=== PATIENT | female | born 1940 | race Caucasian/White ===

== ENCOUNTER → 2016-12-04 | Outpatient (CLI) | payer MEDICARE, OTHER | LOC: RAD 20:21 | PROVIDERS: ATTEND Internal Medicine | DX: C34.11 Malignant neoplasm of upper lobe, right bronchus or lung (principal) | CPT/HCPCS: 78815; A9552 ==

== ENCOUNTER 2016-12-08 08:55 | Day surgery (SDC) | payer MEDICARE, OTHER ==
[2016-12-08 09:32] LABS: HEMATOCRIT 38.6 % (36.0-47.0); HEMOGLOBIN 12.5 g/dL (12.0-15.5); HGB HCT DIFFERENCE -1.1; MEAN CORPUSCULAR HEMOGLOBIN 26.3 pg (27.0-33.4); MEAN CORPUSCULAR HGB CONC 32.3 g/dL (32.0-36.0); MEAN CORPUSCULAR VOLUME 82 fl (80-97); RED BLOOD COUNT 4.74 10^6/uL (3.72-5.28); RED CELL DISTRIBUTION WIDTH 14.7 % (11.5-14.0); WHITE BLOOD COUNT 10.8 10^3/uL (4.0-10.5)
[2016-12-08 09:52] LABS: BLOOD UREA NITROGEN 9 mg/dL (7-20); CREATININE RESULT 0.64 mg/dL (0.52-1.25)
[2016-12-08 09:54] LABS: PROTHROMBIN TIME 14.7 SEC (11.4-15.4)
[2016-12-08 09:55] LABS: PARTIAL THROMBOPLASTIN TIME 35.8 SEC (23.5-35.8)
[2016-12-08] MEDS ORDERED: MIDAZOLAM 2 MG/2 ML INJ ONE (11:30)
[2016-12-08] MEDS ORDERED: FENTANYL CITRATE INJ/PF 100 MCG/2 ML AMPUL ONE (11:31)
[2016-12-08 15:30] VITALS: BP 126/75
== END 2016-12-08 15:00 | disposition home or self-care (01) ==
LOC: RAD 08:55
PROVIDERS: ATTEND Internal Medicine
PROC: 0BBC3ZX Excision of Right Upper Lung Lobe, Percutaneous Approach, Diagnostic (ICD-10-PCS; principal; 2016-12-08)
DX: C34.11 Malignant neoplasm of upper lobe, right bronchus or lung (principal); Z79.01 Long term (current) use of anticoagulants
CPT/HCPCS: 36415; 84520; 82565; 85027; 85610; 85730; 88342 ×2; 88341 ×2; 88305 ×2; 88313 ×2; 71010; 77012; 32405; J2250; J3010

== ENCOUNTER → 2017-09-15 | Outpatient (CLI) | payer MEDICARE, OTHER ==
--- NOTE | 2017-09-15 13:49 | RADIOLOGY REPORT (SQ) ---
EXAM DESCRIPTION: NM WHOLE BODY BONE SCAN COMPLETED DATE/TIME: 09/15/2017 12:58 pm REASON FOR STUDY: C34.11 MALIGNANT NEOPLASM OF UPPER LOBE, RIGHT BRONCHUS OR LUNG C34.11 MALIGNANT NEOPLASM OF UPPER LOBE, RIGHT BRONCHUS OR L COMPARISON: PET-CT 12/04/2016 RADIONUCLIDE AND DOSE: 20 millicuries Tc99m HDP. The route of agent administration: Intravenous. ADDITIONAL DRUGS AND DOSES: None. TECHNIQUE: Routine delayed images at 3 hours post radionuclide injection acquired of the bony skelet on including anterior and posterior whole-body projections and additional focused images as needed. LIMITATIONS: None. FINDINGS: BONES: There are 2 focal areas of increased uptake in the region of the left sacroiliac rod int. Ill-defined areas of increased uptake at L4 and L5. KIDNEYS: Symmetric excretion without obstruction. OTHER: No other significant finding. IMPRESSION: The scan is concerning for metastatic disease in the region of the left sacroiliac joint . No abnormal activity was seen in this area at the time of the PET-CT. The ill-defined uptake the lower lumbar spine is nonspecific. COMMENT: Quality measure 147: Current bone scan is compared with any available plain radiographs, p rior bone scans, and CT/MRI. TECHNICAL DOCUMENTATION: JOB ID: [id number] [employer]- All Rights Reserved
== END ==
LOC: RAD 08:10
PROVIDERS: ATTEND Internal Medicine
DX: C34.11 Malignant neoplasm of upper lobe, right bronchus or lung (principal)
CPT/HCPCS: 78306; A9561; Q9969

== ENCOUNTER → 2017-11-01 | Outpatient (CLI) | payer MEDICARE, OTHER ==
--- NOTE | 2017-11-01 16:50 | RADIOLOGY REPORT (SQ) ---
EXAM DESCRIPTION: KNEE RIGHT 4 VIEWS COMPLETED DATE/TIME: 11/01/2017 4:08 pm REASON FOR STUDY: R KNEE PAIN COMPARISON: None. NUMBER OF VIEWS: Four views. TECHNIQUE: AP, lateral, and both oblique radiographic images acquired of the right knee. LIMITATIONS: None. FINDINGS: There is evidence of osteophytic change of the medial and lateral knee joints with narrowi ng of the lateral knee joint. Peaking of intercondylar eminence. Osteophytic change noted at the p atellofemoral joint. Articular calcification compatible with chondrocalcinosis. IMPRESSION: DEGENERATIVE ARTHRITIS OF THE RIGHT KNEE. CHONDROCALCINOSIS. TECHNICAL DOCUMENTATION: JOB ID: [id number] SC-69 2010 [employer]- All Rights Reserved
--- NOTE | 2017-11-01 17:03 | RADIOLOGY REPORT (SQ) ---
EXAM DESCRIPTION: HIP RIGHT AP/LATERAL COMPLETED DATE/TIME: 11/01/2017 4:08 pm REASON FOR STUDY: R HIP PAIN COMPARISON: None. NUMBER OF VIEWS: Two views. TECHNIQUE: AP pelvis and additional frog-leg view of the right hip. LIMITATIONS: None. FINDINGS: Lumbar spondylosis with scoliosis convex left. Multilevel lumbar degenerative disc diseas e. 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 There is disruption of the media l wall of the right acetabulum noted. Acute fracture cannot be excluded. Follow-up with CT could be obtained if clinically indicated. Degenerative sclerosis along the left SI joint with osteoblastic metastasis not excluded in this region. Vascular calcification of the abdominal aorta. IMPRESSION: Evidence of acetabular protrusio the right hip. Fracture the medial wall right acetabul um not excluded. Degenerative change versus osteoblastic changes at the left SI joint. Lumbar spond ylosis with scoliosis convex left. TECHNICAL DOCUMENTATION: JOB ID: [id number] SC-69 2010 [employer]- All Rights Reserved
== END ==
LOC: RAD 15:14
PROVIDERS: ATTEND Radiology Radiation Oncology
DX: C34.11 Malignant neoplasm of upper lobe, right bronchus or lung (principal); C77.1 Secondary and unspecified malignant neoplasm of intrathoracic lymph nodes; C79.51 Secondary malignant neoplasm of bone

== ENCOUNTER → 2017-11-03 | Outpatient (CLI) | payer MEDICARE, OTHER ==
--- NOTE | 2017-11-03 10:21 | RADIOLOGY REPORT (SQ) ---
EXAM DESCRIPTION: CT RT LOWER EXTREMITY WITHOUT COMPLETED DATE/TIME: 11/03/2017 8:47 am REASON FOR STUDY: R HIP PAIN C79.51 SECONDARY MALIGNANT NEOPLASM OF BONE COMPARISON: None. TECHNIQUE: Axial imaging performed through the right hip with reformatted coronal and sagittal imagi ng windowed for bone and soft tissues. Images saved to PACS. 3D IMAGING: Were 3D images as MIP, SSD, or volume rendering performed at the work station? Yes. All CT scanners at this facility use dose modulation, iterative reconstruction, and/or weight based d osing when appropriate to reduce radiation dose to as low as reasonably achievable (ALARA). [facility]: Dose Right [facility]: CareDose [facility]: Dose Right [facility]: Teradose 4D [facility]: [employer] LIMITATIONS: None. RADIATION DOSE: CT Rad equipment meets quality standard of care and radiation dose reduction techniq ues were employed. CTDIvol: 8.2 mGy. DLP: 282 mGy-cm. mGy. FINDINGS: There is a pathologic fracture through the anterior and posterior columns of the acetabulu m associated with a lytic lesion in the acetabulum. Abnormal soft tissue surrounds the acetabulum an d lateral margin of the inferior ilium. The femoral head is intact. IMPRESSION: Pathologic fracture of the acetabulum. TECHNICAL DOCUMENTATION: JOB ID: [id number] Quality ID # 436: Final reports with documentation of one or more dose reduction techniques (e.g., Au tomated exposure control, adjustment of the mA and/or kV according to patient size, use of iterative reconstruction technique) 2010 [employer]- All Rights Reserved
[2017-11-03 13:39] LABS: ABSOLUTE BASOPHILS # (AUTO) 0.1 10^3/uL (0.0-0.2); ABSOLUTE EOSINOPHILS # (AUTO) 0.1 10^3/uL (0.0-0.6); ABSOLUTE LYMPHOCYTES (AUTO) 1.9 10^3/uL (0.5-4.7); ABSOLUTE MONOCYTES (AUTO) 1.5 10^3/uL (0.1-1.4); ABSOLUTE NEUT (AUTO) 6.6 10^3/uL (1.7-8.2); BASOPHILS % (AUTO) 0.9 % (0-2); EOSINOPHILS % (AUTO) 1.3 % (0-6); HEMATOCRIT 36.8 % (36.0-47.0); HEMOGLOBIN 11.9 g/dL (12.0-15.5); MEAN CORPUSCULAR HEMOGLOBIN 26.9 pg (27.0-33.4); MEAN CORPUSCULAR HGB CONC 32.3 g/dL (32.0-36.0); MEAN CORPUSCULAR VOLUME 83 fl (80-97); MONOCYTES % (AUTO) 14.2 % (3-13); PLATELET COUNT 489 10^3/uL (150-450); RED BLOOD COUNT 4.42 10^6/uL (3.72-5.28); SEGMENTED NEUTROPHILS % (AUTO) 64.6 % (42-78); TOTAL CELLS COUNTED % (AUTO) 100 %; WHITE BLOOD COUNT 10.2 10^3/uL (4.0-10.5)
== END ==
LOC: RAD 08:25
PROVIDERS: ATTEND Radiology Radiation Oncology
DX: C79.51 Secondary malignant neoplasm of bone (principal); M84.550A Pathological fracture in neoplastic disease, pelvis, initial encounter for fracture; M25.551 Pain in right hip; C34.11 Malignant neoplasm of upper lobe, right bronchus or lung; C77.1 Secondary and unspecified malignant neoplasm of intrathoracic lymph nodes
CPT/HCPCS: 36415; 85025

== ENCOUNTER 2017-12-01 17:28 | Inpatient (IN) | payer MEDICARE, OTHER ==
--- NOTE | 2017-12-01 18:22 | RADIOLOGY REPORT (SQ) ---
EXAM DESCRIPTION: HIP RIGHT AP/LATERAL COMPLETED DATE/TIME: 12/01/2017 6:12 pm REASON FOR STUDY: possible dislocation COMPARISON: Right hip films 09/11/2018 PET-CT 12/04/2016 NUMBER OF VIEWS: Two views. TECHNIQUE: AP pelvis and additional frog-leg view of the right hip. LIMITATIONS: None. FINDINGS: Bones are osteoporotic. There is a fracture through the medial wall of the right acetabulum with protrusio of the femoral hea d into the pelvis. This has progressed since 11/01/2017. Right femoral head and neck are intact. Remainder of the bony pelvis and left proximal femur are unremarkable. Degenerative disc changes lower lumbar spine IMPRESSION: Medial wall right acetabular fracture with protrusion of the femoral head into the bony pelvis TECHNICAL DOCUMENTATION: JOB ID: [id number] [employer]- All Rights Reserved Reading location - IP/workstation name: [email or web address]
[2017-12-01] MEDS ORDERED: NORMAL SALINE 1000 ML 1,000 ML IV ONE (18:28)
[2017-12-01] MEDS ORDERED: ONDANSETRON HCL INJ/PF 4 MG/2 ML SDV IV ONE ×2 (18:28→19:17)
[2017-12-01] MEDS ORDERED: HYDROMORPHONE HCL INJ/PF 2 MG/ML AMPULE IV ONE (18:28)
[2017-12-01 18:50] LABS: ABSOLUTE BASOPHILS # (AUTO) 0.1 10^3/uL (0.0-0.2); ABSOLUTE EOSINOPHILS # (AUTO) 0.3 10^3/uL (0.0-0.6); ABSOLUTE LYMPHOCYTES (AUTO) 1.5 10^3/uL (0.5-4.7); ABSOLUTE MONOCYTES (AUTO) 0.8 10^3/uL (0.1-1.4); ABSOLUTE NEUT (AUTO) 9.8 10^3/uL (1.7-8.2); BASOPHILS % (AUTO) 0.8 % (0-2); HEMATOCRIT 38.4 % (36.0-47.0); HEMOGLOBIN 12.3 g/dL (12.0-15.5); INTERNATIONAL RATION (INR) 1.13; MEAN CORPUSCULAR HEMOGLOBIN 26.1 pg (27.0-33.4); MEAN CORPUSCULAR VOLUME 82 fl (80-97); MONOCYTES % (AUTO) 6.4 % (3-13); PLATELET COUNT 387 10^3/uL (150-450); PROTHROMBIN TIME 15.3 SEC (11.4-15.4); RED CELL DISTRIBUTION WIDTH 19.3 % (11.5-14.0); SEGMENTED NEUTROPHILS % (AUTO) 78.8 % (42-78); TOTAL CELLS COUNTED % (AUTO) 100 %; WHITE BLOOD COUNT 12.5 10^3/uL (4.0-10.5)
[2017-12-01 18:51] LABS: PARTIAL THROMBOPLASTIN TIME 43.4 SEC (23.5-35.8)
[2017-12-01 18:59] LABS: BLOOD UREA NITROGEN 14 mg/dL (7-20); CALCIUM 7.3 mg/dL (8.4-10.2); CARBON DIOXIDE 30 mmol/L (22-30); CHLORIDE 93 mmol/L (98-107); GLUCOSE 111 mg/dL (75-110); POTASSIUM 4.1 mmol/L (3.6-5.0); SODIUM 125.8 mmol/L (137-145)
[2017-12-01 19:14] LABS: ANION GAP 3 (5-19)
[2017-12-01 19:29] LABS: AMORPHOUS SEDIMENT,URINE TRACE /HPF; APPEARANCE,URINE CLOUDY; BILIRUBIN,URINE NEGATIVE (NEGATIVE); COLOR,URINE YELLOW; GLUCOSE, URINE NEGATIVE (NEGATIVE); KETONES,URINE NEGATIVE (NEGATIVE); LEUKOCYTE ESTERASE,URINE LARGE (NEGATIVE); NITRITE,URINE POSITIVE (NEGATIVE); PROTEIN,URINE NEGATIVE (NEGATIVE); URINE SPECIFIC GRAVITY 1.006
[2017-12-01] MEDS: HYDROMORPHONE HCL INJ/PF 2 MG/ML AMPULE IV PRN ×2 (19:37→21:26)
[2017-12-01] MEDS ORDERED: CEFTRIAXONE INJ 1000 MG VIAL IV ONE (20:41)
--- NOTE | 2017-12-01 20:45 | RADIOLOGY REPORT (SQ) ---
EXAM DESCRIPTION: CT HEAD WITHOUT COMPLETED DATE/TIME: 12/01/2017 8:33 pm REASON FOR STUDY: hx of lung ca eval progression of mets new hip fx COMPARISON: None. TECHNIQUE: Axial images acquired through the brain without intravenous contrast. Images reviewed wi th bone, brain and subdural windows. Images stored on PACS. All CT scanners at this facility use dose modulation, iterative reconstruction, and/or weight based d osing when appropriate to reduce radiation dose to as low as reasonably achievable (ALARA). [facility]: Dose Right [facility]: CareDose [facility]: Dose Right [facility]: Teradose 4D [facility]: [employer] RADIATION DOSE: CT Rad equipment meets quality standard of care and radiation dose reduction techniq ues were employed. CTDIvol: 64.6 mGy. DLP: 1034 mGy-cm. mGy. LIMITATIONS: None. FINDINGS: VENTRICLES: Prominent. CEREBRUM: No masses. No hemorrhage. No midline shift. Areas of low density in the white matter mos t likely due to chronic micro-vascular ischemic change. No evidence for acute infarction. CEREBELLUM: No masses. No hemorrhage. No alteration of density. No evidence for acute infarction. EXTRAAXIAL SPACES: Mild age-related involutional change. No fluid collections. No masses. ORBITS AND GLOBE: No intra- or extraconal masses. Normal contour of globe without masses. CALVARIUM: No fracture. PARANASAL SINUSES: Left greater than right maxillary sinus disease. SOFT TISSUES: No mass or hematoma. OTHER: No other significant finding. IMPRESSION: MILD CHRONIC CHANGES OF ATROPHY AND MICROVASCULAR ISCHEMIA. PARANASAL SINUS DISEASE. N O ACUTE INTRACRANIAL PROCESS. EVIDENCE OF ACUTE STROKE: NO. TECHNICAL DOCUMENTATION: JOB ID: [id number] Quality ID # 436: Final reports with documentation of one or more dose reduction techniques (e.g., Au tomated exposure control, adjustment of the mA and/or kV according to patient size, use of iterative reconstruction technique) 2010 [employer]- All Rights Reserved Reading location - IP/workstation name: [email or web address]
--- NOTE | 2017-12-01 20:56 | RADIOLOGY REPORT (SQ) ---
EXAM DESCRIPTION: CT CHEST WITH COMPLETED DATE/TIME: 12/01/2017 8:36 pm REASON FOR STUDY: hx of lung ca eval progression of mets new hip fx COMPARISON: PET-CT FROM 10/05/2017 TECHNIQUE: CT scan of the chest performed using helical scanning technique with dynamic intravenous contrast injection. Images reviewed with lung, soft tissue and bone windows. Reconstructed coronal and sagittal MPR images reviewed. All images stored on PACS. All CT scanners at this facility use dose modulation, iterative reconstruction, and/or weight based d osing when appropriate to reduce radiation dose to as low as reasonably achievable (ALARA). [facility]: Dose Right [facility]: CareDose [facility]: Dose Right [facility]: Teradose 4D [facility]: [employer] CONTRAST TYPE AND DOSE: contrast/concentration: Isovue 370.00 mg/ml; Total Contrast Delivered: 65.0 ml; Total Saline Delivered: 65.1 ml RENAL FUNCTION: GFR > 60. RADIATION DOSE: CT Rad equipment meets quality standard of care and radiation dose reduction techniq ues were employed. CTDIvol: 7.1 - 8.7 mGy. DLP: 946 mGy-cm. . LIMITATIONS: None. FINDINGS: LUNGS AND PLEURA: There has been near complete resolution of previously identified right s uprahilar and right upper lobe masses with some residual sub solid opacity in the right upper lobe se tarun 4, image 21 measuring 16 mm compatible with response to therapy. There has however been interva l development of numerous new and enlarging pulmonary nodules bilaterally compatible with progression of metastatic disease. The largest nodule is located within the superior segment of the right lower lobe measuring 3.9 cm where it previously measured 1.2 cm. New bilateral lower lobe airspace diseas e. HILAR AND MEDIASTINAL STRUCTURES: Some interval improvement of mediastinal and hilar lymphadenopathy compatible with response to therapy HEART AND VASCULAR STRUCTURES: No aneurysm or dissection. No central pulmonary emboli. No pericardi al effusion. HARDWARE: None in the chest. UPPER ABDOMEN: See separate report of the CT of the abdomen. THYROID AND OTHER SOFT TISSUES: Stable adenopathy. No new mass. BONES: Degenerative change without fracture or suspicious osseous lesion. OTHER: No other significant finding. IMPRESSION: ALTHOUGH THERE HAS BEEN INTERVAL IMPROVEMENT OF MEDIASTINAL AND HILAR LYMPHADENOPATHY WELL DOMINANT MASS RIGHT SUPRAHILAR LUNG AND RIGHT UPPER LOBE THERE HAS BEEN INTERVAL DEVELOPMENT OF NEW WILL ENLARGING PULMONARY NODULES/MASSES COMPATIBLE WITH OVERALL PROGRESSION OF METASTATIC PAULINA G CANCER. NEW BILATERAL LOWER LOBE AIRSPACE DISEASE SUSPICIOUS FOR PNEUMONIA. CORRELATE WITH FEVER/ELEVATED WH ITE BLOOD CELL COUNT. TECHNICAL DOCUMENTATION: JOB ID: [id number] Quality ID # 436: Final reports with documentation of one or more dose reduction techniques (e.g., Au tomated exposure control, adjustment of the mA and/or kV according to patient size, use of iterative reconstruction technique) 2010 [employer]- All Rights Reserved Reading location - IP/workstation name: [email or web address]
--- NOTE | 2017-12-01 21:02 | RADIOLOGY REPORT (SQ) ---
EXAM DESCRIPTION: CT ABD/PELVIS WITH IV ONLY COMPLETED DATE/TIME: 12/01/2017 8:36 pm REASON FOR STUDY: hx of lung ca eval progression of mets new hip fx COMPARISON: PET CT FROM 12/04/[address] FROM 11/03/2017. TECHNIQUE: CT scan of the abdomen and pelvis performed using helical scanning technique with dynamic intravenous contrast injection. No oral contrast. Images reviewed with lung, soft tissue, and bone windows. Reconstructed coronal and sagittal MPR images reviewed. Delayed images for evaluation of the urinary system also acquired. All images stored on PACS. All CT scanners at this facility use dose modulation, iterative reconstruction, and/or weight based d osing when appropriate to reduce radiation dose to as low as reasonably achievable (ALARA). [facility]: Dose Right [facility]: CareDose [facility]: Dose Right [facility]: Teradose 4D [facility]: [employer] CONTRAST TYPE AND DOSE: 65 ML Isovue 370- low osmolar. RENAL FUNCTION: GFR > 60. RADIATION DOSE: . LIMITATIONS: None. FINDINGS: LOWER CHEST: See separate report of the CT of the chest. LIVER: Diffuse hepatic steatosis which limits sensitivity of evaluation for metastatic disease. No d efinite mass. Stable pneumobilia status post cholecystectomy. SPLEEN: Normal size. No focal lesions. PANCREAS: No masses. No significant calcifications. No adjacent inflammation or peripancreatic fluid collections. Pancreatic duct not dilated. GALLBLADDER: Surgically absent. ADRENAL GLANDS: No significant masses or asymmetry. RIGHT KIDNEY AND URETER: No solid masses. No significant calcifications. No hydronephrosis or hyd roureter. LEFT KIDNEY AND URETER: No solid masses. No significant calcifications. No hydronephrosis or hydr oureter. AORTA AND VESSELS: Atherosclerotic calcifications. No aneurysm. No dissection. Renal arteries, SMA, celiac without stenosis. RETROPERITONEUM: No retroperitoneal adenopathy, hemorrhage or masses. BOWEL AND PERITONEAL CAVITY: No masses or inflammatory changes. No free fluid or peritoneal masses. APPENDIX: Normal. PELVIS: No mass. No free fluid. Bladder decompressed with Hernandez catheter. ABDOMINAL WALL: No masses. No significant hernias. BONES: Again seen is a severely comminuted pathologic fracture involving the right acetabulum with me dial displacement of the femoral head. Additional lytic lesion identified within the left iliac bone not included in field of view prior study measuring approximately 3.9 x 2.3 x 2.9 cm OTHER: No other significant finding. IMPRESSION: RELATIVELY STABLE APPEARANCE OF PATHOLOGIC FRACTURE RIGHT ACETABULUM WHEN COMPARED TO OH IOR CT PERFORMED ON 11/03/2017. ADDITIONAL LYTIC LESION WITHIN THE LEFT ILIAC BONE COMPATIBLE WITH 2ND SITE OF OSSEOUS METASTATIC DIS EASE. REMAINING FINDINGS ARE STABLE COMPARED TO PRIOR PET-CT PERFORMED ON 12/04/2016. TECHNICAL DOCUMENTATION: JOB ID: [id number] Quality ID # 436: Final reports with documentation of one or more dose reduction techniques (e.g., Au tomated exposure control, adjustment of the mA and/or kV according to patient size, use of iterative reconstruction technique) 2010 [employer]- All Rights Reserved Reading location - IP/workstation name: [email or web address]
--- NOTE | 2017-12-01 21:55 | ER Document Report ---
ED General - General Chief Complaint: Hip Pain Stated Complaint: RIGHT HIP PAIN Time Seen by Provider: 12/01/17 18:18 TRAVEL OUTSIDE OF THE [place] IN LAST 30 DAYS: No - HPI Patient complains to provider of: Right hip pain Notes: Patient coming in for evaluation of right hip pain. According to family members patient amatory approximately 2 weeks ago currently is being treated for metastatic lung cancer with metastases to the sacral region. Patient recently underwent chemotherapy and radiation. Upon my evaluation patient moaning in pain holding her right hip. Denies any falls denies any trauma. Denies any other symptoms fever chills nausea vomiting. - Related Data Allergies/Adverse Reactions: No Known Allergies Allergy (Verified 01/29/13 12:55) Past Medical History - Social History Smoking Status: Unknown if Ever Smoked Family History: Reviewed & Not Pertinent Patient has suicidal ideation: No Patient has homicidal ideation: No - Past Medical History Cardiac Medical History: Denies: Hx Coronary Artery Disease, Hx Heart Attack, Hx Hypertension Pulmonary Medical History: Reports: Hx Bronchitis, Hx COPD - COPD Denies: Hx Asthma, Hx Pneumonia Neurological Medical History: Denies: Hx Cerebrovascular Accident, Hx Seizures Renal/ Medical History: Denies: Hx Peritoneal Dialysis GI Medical History: Denies: Hx Hepatitis, Hx Hiatal Hernia, Hx Ulcer Musculoskeltal Medical History: Reports Hx Arthritis - Hands and Knees Infectious Medical History: Denies: Hx Hepatitis Past Surgical History: Denies: Hx Mastectomy, Hx Open Heart Surgery, Hx Pacemaker - Immunizations Hx Diphtheria, Pertussis, Tetanus Vaccination: No Review of Systems - Review of Systems Constitutional: No symptoms reported EENT: No symptoms reported Cardiovascular: No symptoms reported Respiratory: No symptoms reported Gastrointestinal: No symptoms reported Genitourinary: No symptoms reported Female Genitourinary: No symptoms reported Musculoskeletal: Other - Right hip pain Skin: No symptoms reported Hematologic/Lymphatic: No symptoms reported Neurological/Psychological: No symptoms reported Physical Exam - Vital signs Vitals: Resp Pulse Ox 13 95 12/01/17 17:40 12/01/17 17:40 Interpretation: Normal - General General appearance: Alert, Other - Chronically ill - HEENT Head: Normocephalic, Atraumatic Eyes: Normal Pupils: PERRL - Respiratory Respiratory status: No respiratory distress Chest status: Nontender Breath sounds: Normal Chest palpation: Normal - Cardiovascular Rhythm: Regular Heart sounds: Normal auscultation Murmur: No - Abdominal Inspection: Normal Distension: No distension Bowel sounds: Normal Tenderness: Nontender Organomegaly: No organomegaly - Back Back: Normal, Nontender - Extremities General upper extremity: Normal inspection, Nontender, Normal color, Normal ROM , Normal temperature General lower extremity: Normal inspection, Nontender, Edema - 2+ bilaterally, Other - Patient with shortening and pain of the right lower extremity. No: Normal temperature - Neurological Neuro grossly intact: Yes Cognition: Normal Orientation: AAOx4 [place] Coma Scale Eye Opening: Spontaneous [place] Coma Scale Verbal: Oriented [place] Coma Scale Motor: Obeys Commands [place] Coma Scale Total: 15 Speech: Normal Motor strength normal: LUE, RUE, LLE, RLE Sensory: Normal - Psychological Associated symptoms: Normal affect, Normal mood - Skin Skin Temperature: Warm Skin Moisture: Dry Skin Color: Hyperpigmentation Course - Re-evaluation Re-evalutation: 12/02/17 00:18 Patient has a acetabular fracture. Did discuss with orthopedics on-call recommended transfer to tertiary care center for surgery. They contact the oncology astronautical engineer and was later contacted by the patient's personal oncologist Jason. Recommend CAT scans of the head chest and pelvis to evaluate patient's status recommended that the patient had improvement of cancer lesions and the family and patient want surgery that at that time will be more feasible however patient's cancer is progressing then hospice and pain management would be more in line with taking care of the patient. Unfortunately the patient's CAT scan did show multiple new lesions that are all worsening of the patient's cancer. Did speak to the patient into the family members patient does not want surgery at this time. Patient agrees with comfort measures and pain control. I did discuss DNR status with the patient and agrees at this time. Patient was admitted to the hospital service - Vital Signs Vital signs: Temp Pulse Resp BP Pulse Ox 15 94/50 L 93 12/02/17 00:01 12/02/17 00:00 12/02/17 00:01 - Laboratory Result Diagrams: 12/01/17 17:00 12/01/17 17:00 Laboratory results interpreted by me: 12/01/17 12/01/17 12/01/17 17:00 17:00 17:00 WBC 12.5 H MCH 26.1 L RDW 19.3 H Seg Neutrophils % 78.8 H Lymphocytes % 12.0 L Absolute Neutrophils 9.8 H APTT 43.4 H Sodium 125.8 L Chloride 93 L Anion Gap 3 L Glucose 111 H Calcium 7.3 L Urine Nitrite Urine Urobilinogen Ur Leukocyte Esterase 12/01/17 19:10 WBC MCH RDW Seg Neutrophils % Lymphocytes % Absolute Neutrophils APTT Sodium Chloride Anion Gap Glucose Calcium Urine Nitrite POSITIVE H Urine Urobilinogen 2.0 H Ur Leukocyte Esterase LARGE H Discharge - Discharge Clinical Impression: Lung cancer with metastatic disease, Uncontrolled pain Right acetabular fracture Qualifiers: Encounter type: initial encounter Sublocation of acetabulum: medial wall Fracture type: closed Fracture alignment: displaced Qualified Code(s): S32.471A - Displaced fracture of medial wall of right acetabulum, initial encounter for closed fracture Condition: Good Disposition: ADMITTED INPATIENT Admitting Provider: Armando Terry Unit Admitted: Medical Floor
[2017-12-01] MEDS ORDERED: KETOROLAC TROMETHAMINE INJ/PF 30 MG/1 ML SDV IV ONE (21:57)
[2017-12-01] MEDS ORDERED: ALBUTEROL SULFATE 0.083% NEB 2.5 MG/3 ML AMPUL NEB PRN (22:07)
[2017-12-01] MEDS ORDERED: PROMETHAZINE HCL INJ 25 MG/1 ML VIAL IV PRN (22:07)
[2017-12-01] MEDS ORDERED: ACETAMINOPHEN 325 MG TABLET PO PRN (22:07)
[2017-12-01] MEDS ORDERED: ONDANSETRON HCL INJ/PF 4 MG/2 ML SDV IV PRN (22:07)
[2017-12-01] MEDS ORDERED: HYDROMORPHONE HCL INJ/PF 2 MG/ML AMPULE IV PRN (22:12)
[2017-12-02] MEDS: OXYCODONE-ACETAMINOPHEN 5-325 MG TABLET PO PRN ×4 (00:21→22:22)
--- NOTE | 2017-12-02 02:43 | PDOC H&P ---
History of Present Illness Admission Date/PCP: RADHA GOODE Patient complains of: Right hip pain and increased bilateral leg swelling and rash for about a week per daughter. History of Present Illness: ANUP OLIVEROS is a 77 year old cachectic female with history of lung cancer with metastasis was admitted with above-mentioned complaints. Unable to get an accurate history from the patient herself so most of the history was obtained from her daughter at bedside. According to her daughter, the patient started having increased bilateral leg swelling and rash for about a week. She was also complaining of right hip pain. She used to be able to ambulate with assistance but lately she has been bedbound because of pain. There was no report of any fever or chills but she had a dry cough for the last 2 weeks. There was also no report of any chest pain, shortness of breath or abdominal pain but she has been having diarrhea with liquid nonbloody stool. There was no report of any urinary symptoms. Her appetite has been adequate. In the ED, the patient was hemodynamically stable. Her WBC was 12.5 and her hemoglobin was 12.3. Her urinalysis was positive. Her right hip showed a medial wall right acetabular fracture. She received 1 g of Rocephin 1, 1 mg Dilaudid 1, 50 mg Toradol 1 with some improvement in her symptoms. Past Medical History Medical History: Other - And as per previous records. Cardiac Medical History: Denies: Coronary Artery Disease, Myocardial Infarction, Hypertension Pulmonary Medical History: Reports: Bronchitis, Chronic Obstructive Pulmonary Disease (COPD) - COPD Denies: Asthma, Pneumonia Neurological Medical History: Denies: Seizures Malignancy Medical History: Reports: Lung Cancer - with mets., Other - bladder cancer GI Medical History: Denies: Hepatitis, Hiatal Hernia Musculoskeltal Medical History: Reports: Arthritis - Hands and Knees Hematology: Denies: Anemia, Sickle Cell Disease Past Surgical History Past Surgical History: Reports: Other - bladder cancer, post sling placed per daughter. Social History Smoking Status: Unknown if Ever Smoked Cigarettes Packs Per Day: 0 - Used to smoke less than a pack a day for many years. She quit a year ago. Frequency of Alcohol Use: None - Advance Directive Resuscitation Status: Do Not Intubate Family History Parental Family History Reviewed: Yes - Mother: Heart disease and diabetes, diet brother: Diabetes. Children Family History Reviewed: No Sibling(s) Family History Reviewed.: Yes Medication/Allergy Home Medications: Bupropion HCl [Wellbutrin Xl 150 mg 24hr Tablet] 150 mg PO 01/29/13 Cholecalciferol (Vitamin D3) [Vitamin D3 5000 unit Capsule] 5,000 unit PO Simvastatin [Zocor 20 mg Tablet] 20 mg PO QHS 01/29/13 Albuterol Sulfate [Proair HFA] 1 - 2 puff IH Q4 PRN 12/08/16 Umeclidinium Brm/Vilanterol Tr [Anoro Ellipta 62.5-25 Mcg INH] DAILY 12/08/16 Allergies/Adverse Reactions: No Known Allergies Allergy (Verified 01/29/13 12:55) Review of Systems ROS unobtainable: Other - Pertinent positives and negatives as per HPI. Physical Exam Vital Signs: Temp Pulse Resp BP Pulse Ox 12 116/68 94 12/01/17 20:01 12/01/17 20:00 12/01/17 20:01 General appearance: PRESENT: no acute distress, other - cachectic Head exam: PRESENT: atraumatic Eye exam: PRESENT: conjunctiva pink, PERRLA. ABSENT: scleral icterus Mouth exam: PRESENT: moist, tongue midline Neck exam: PRESENT: full ROM Respiratory exam: PRESENT: clear to auscultation mehdi. ABSENT: rales, rhonchi, wheezes Cardiovascular exam: PRESENT: RRR - S1 S2 normal. Pulses: PRESENT: +2 pedal pulses bilateral GI/Abdominal exam: PRESENT: normal bowel sounds, soft. ABSENT: distended, rebound, tenderness Rectal exam: PRESENT: deferred Extremities exam: PRESENT: pedal edema, other - Limited range of motion of right leg since acute fracture of the acetabulum. Neurological exam: PRESENT: alert, awake, oriented to person Skin exam: PRESENT: dry, intact, rash - On all extremities, mostly bilateral legs, warm. ABSENT: cyanosis Results Laboratory Results: 12/01/17 17:00 12/01/17 17:00 12/01/17 12/01/17 12/01/17 17: 17:00 19:10 WBC 12.5 H RBC 4.70 Hgb 12.3 Hct 38.4 MCV 82 MCH 26.1 L MCHC 32.0 RDW 19.3 H Plt Count 387 Seg Neutrophils % 78.8 H Lymphocytes % 12.0 L Monocytes % 6.4 Eosinophils % 2.0 Basophils % 0.8 Absolute Neutrophils 9.8 H Absolute Lymphocytes 1.5 Absolute Monocytes 0.8 Absolute Eosinophils 0.3 Absolute Basophils 0.1 Sodium 125.8 L Potassium 4.1 Chloride 93 L Carbon Dioxide 30 Anion Gap 3 L BUN 14 Creatinine 0.64 Est GFR ( Amer) > 60 Est GFR (Non-Af Amer) > 60 Glucose 111 H Calcium 7.3 L Urine Color YELLOW Urine Appearance CLOUDY Urine pH 6.0 Ur Specific Prosser 1.006 Urine Protein NEGATIVE Urine Glucose (UA) NEGATIVE Urine Ketones NEGATIVE Urine Blood NEGATIVE Urine Nitrite POSITIVE H Ur Leukocyte Esterase LARGE H Urine WBC (Auto) >182 Urine RBC (Auto) 3 Impressions: Hip/Pelvis X-Ray 12/01/17 17:53 IMPRESSION: Medial wall right acetabular fracture with protrusion of the femoral head into the bony pelvis Abdomen/Pelvis CT 12/01/17 19:16 IMPRESSION: RELATIVELY STABLE APPEARANCE OF PATHOLOGIC FRACTURE RIGHT ACETABULUM WHEN COMPARED TO PRIOR CT PERFORMED ON 11/03/2017. ADDITIONAL LYTIC LESION WITHIN THE LEFT ILIAC BONE COMPATIBLE WITH 2ND SITE OF OSSEOUS METASTATIC DISEASE. REMAINING FINDINGS ARE STABLE COMPARED TO PRIOR PET-CT PERFORMED ON 12/04/2016. Chest CT 12/01/17 19:16 IMPRESSION: ALTHOUGH THERE HAS BEEN INTERVAL IMPROVEMENT OF MEDIASTINAL AND HILAR LYMPHADENOPATHY WELL DOMINANT MASS RIGHT SUPRAHILAR LUNG AND RIGHT UPPER LOBE THERE HAS BEEN INTERVAL DEVELOPMENT OF NEW WILL ENLARGING PULMONARY NODULES/MASSES COMPATIBLE WITH OVERALL PROGRESSION OF METASTATIC LUNG CANCER. NEW BILATERAL LOWER LOBE AIRSPACE DISEASE SUSPICIOUS FOR PNEUMONIA. CORRELATE WITH FEVER/ELEVATED WHITE BLOOD CELL COUNT. Head CT 12/01/17 19:16 IMPRESSION: MILD CHRONIC CHANGES OF ATROPHY AND MICROVASCULAR ISCHEMIA. PARANASAL SINUS DISEASE. NO ACUTE INTRACRANIAL PROCESS. EVIDENCE OF ACUTE STROKE: NO. Assessment & Plan - Diagnosis (1) Right acetabular fracture Qualifiers: Encounter type: initial encounter Sublocation of acetabulum: medial wall Fracture type: closed Fracture alignment: displaced Qualified Code(s): S32.471A - Displaced fracture of medial wall of right acetabulum, initial encounter for closed fracture Is this a current diagnosis for this admission?: Yes Plan: pathological fracture unchanged from 11/03/2017. X-ray right hip and CT pelvis reviewed. The case was discussed by ED physician and orthopedics who reportedly recommended that transferring to a tertiary center. The case was also discussed with her oncologist (Dr. Gomez) who according to the ED physician recommended CAT scans of head, chest and abdomen/pelvis to assess the extent of her disease. Imaging studies unfortunately showed progression of her disease despite being on chemotherapy and radiation. So after further discussion with the patient and her daughter, the decision was made to treat her conservatively. Her daughter was asking me about possibly transferring her to hospice home. Palliative care may need to be consulted to facilitate transfer. (2) UTI (urinary tract infection) Is this a current diagnosis for this admission?: Yes Plan: We will continue Rocephin awaiting urine culture. Hernandez was placed in the ED to help with comfort. (3) Intractable pain Is this a current diagnosis for this admission?: Yes Plan: She is on 75 mcg fentanyl patch 1. Will increase to 100 mgg and give IV fentanyl as needed. Since the focus is on comfort, will not obtain any blood work. (4) Lung cancer metastatic to bone Is this a current diagnosis for this admission?: No Plan: The patient was diagnosed about a year ago no improvement after being treated with chemoradiation. Her last chemotherapy was on 11/22/2017 and her last radiation therapy was 2 weeks ago per her daughter. Further management per oncology consulted by the ED physician. - Time Time Spent: 50 to 70 Minutes Medications reviewed and adjusted accordingly: Yes - Inpatient Certification Based on my medical assessment, after consideration of the patient's comorbidities, presenting symptoms, or acuity I expect that the services needed warrant INPATIENT care.: Yes I certify that my determination is in accordance with my understanding of Medicare's requirements for reasonable and necessary INPATIENT services [42 CFR 412.3e].: Yes
[2017-12-02] MEDS ORDERED: FENTANYL 100 MCG/HR PATCH.TD72 TD ONE (03:00)
[2017-12-02] MEDS ORDERED: VANCOMYCIN HCL 0 MG in DEXTROSE 5%-WATER 250 ML IV NR (03:30)
[2017-12-02] MEDS ORDERED: PIPERACILLIN/TAZOBACTAM 3.375 GM VIAL IV PRN (03:41)
[2017-12-02] MEDS ORDERED: PIPERACILLIN SODIUM/TAZOBACTAM 3.375 GM in NORMAL SALINE 100 ML IV ONE (03:45)
[2017-12-02] MEDS ORDERED: VANCOMYCIN HCL INJ 1000 MG VIAL IV PRN (04:01)
[2017-12-02] MEDS ORDERED: PIPERACILLIN/TAZOBACTAM 3.375 GM VIAL IV ONE (04:25)
[2017-12-02] MEDS ORDERED: VANCOMYCIN HCL INJ 1000 MG VIAL ONE (04:25)
[2017-12-02] MEDS ORDERED: VANCOMYCIN HCL 1,000 MG in DEXTROSE 5%-WATER 250 ML IV ONE (05:00)
[2017-12-02] MEDS: HEPARIN SOD (PORCINE) 5,000 UNIT/ML 1 ML SYRINGE SUBCUT SCH ×3 (05:45→21:18)
[2017-12-02] MEDS: HYDROCORTISONE 0.5% CREAM 28.35 GM TP SCH ×2 (09:00→17:08)
[2017-12-02] MEDS: PIPERACILLIN SODIUM/TAZOBACTAM 3.375 GM in NORMAL SALINE 100 ML IV SCH ×3 (09:01→21:18)
--- NOTE | 2017-12-02 13:15 | PDOC CONSULTATION ---
Consultation Consult Date: 12/02/17 Consult reason:: Hematology/Oncology consultation was requested for patient with Lung cancer and new hip fracture. History of Present Illness Admission Date/PCP: 12/01/17 22:38 RADHA GOODE History of Present Illness: ANUP OLIVEROS is a 77 year old female who is followed by Dr. Butler for metastatic lung cancer. She has been undergoing active treatment for this. However, over the past week, she has bee unable to ambulate due to progressive hip pain. Outpatient plans had been to restage her with CT scans but she was unable to come for these appointments. According to her daughter, the patient started having increased bilateral leg swelling and rash for about a week. She was also complaining of right hip pain. She used to be able to ambulate with assistance but lately she has been bedbound because of pain. There was no report of any fever or chills but she had a dry cough for the last 2 weeks. There was also no report of any chest pain, shortness of breath or abdominal pain but she has been having diarrhea with liquid nonbloody stool. There was no report of any urinary symptoms. Her appetite has been adequate. In the ED, the patient was hemodynamically stable. Her WBC was 12.5 and her hemoglobin was 12.3. Her urinalysis was positive. Her right hip showed a medial wall right acetabular fracture. She received 1 g of Rocephin 1, 1 mg Dilaudid 1, 50 mg Toradol 1 with some improvement in her symptoms. Today, she is resting comfortably in bed and states that her pain is controlled. Her daughter, Arti is at bedside. Past Medical History Cardiac Medical History: Denies: Coronary Artery Disease, Myocardial Infarction, Hypertension Pulmonary Medical History: Reports: Bronchitis, Chronic Obstructive Pulmonary Disease (COPD) - COPD Denies: Asthma, Pneumonia Neurological Medical History: Denies: Seizures Malignancy Medical History: Reports: Lung Cancer - with mets., Other - bladder cancer GI Medical History: Denies: Hepatitis, Hiatal Hernia Musculoskeltal Medical History: Reports: Arthritis - Hands and Knees Psychiatric Medical History: Denies: Depression Hematology: Denies: Anemia, Sickle Cell Disease Past Surgical History Past Surgical History: Reports: Other - bladder cancer, post sling placed per daughter. Denies: Amputation, Mastectomy, Pacemaker Social History Information Source: Relative Lives with: Alone Smoking Status: Unknown if Ever Smoked Cigarettes Packs Per Day: 0 - Used to smoke less than a pack a day for many years. She quit a year ago. Last Time Smoked: quit in 2017 Frequency of Alcohol Use: None Hx Prescription Drug Abuse: No - Advance Directive Resuscitation Status: Do Not Intubate Family History Family History: Reviewed & Not Pertinent Parental Family History Reviewed: No Children Family History Reviewed: Yes Sibling(s) Family History Reviewed.: No Medication/Allergy Home Medications: Dronabinol [Marinol] 5 mg PO DAILY@08,12 12/02/17 Fentanyl [Duragesic 100 Mcg/Hr Transdermal Patch] 100 mcg TOP Q3D 12/02/17 Hydromorphone HCl [Dilaudid] 4 mg PO Q6HP PRN 12/02/17 Omeprazole 20 mg PO QHS 12/02/17 Ondansetron HCl [Zofran 8 mg Tablet] 8 mg PO Q8HP PRN 12/02/17 Potassium Chloride [Klor-Con M20] 20 meq PO DAILY 12/02/17 Prochlorperazine Maleate [Compazine 10 mg Tablet] 10 mg PO Q4HP PRN 12/02/17 Tiotropium [place] [Spiriva Handihaler 18 mcg/dose (30 Dose)] 1 cap IH DAILY Allergies/Adverse Reactions: No Known Allergies Allergy (Verified 01/29/13 12:55) Review of Systems ROS unobtainable: Due to mental status - patient very sleepy after pain medications. However daughter states no recent N/V/chest pain or dyspnea. Physical Exam Vital Signs: Temp Pulse Resp BP Pulse Ox 97.4 F 76 16 117/45 L 95 12/02/17 07:57 12/02/17 07:57 12/02/17 07:57 12/02/17 07:57 12/02/17 07:57 Intake & Output 12/01/17 12/02/17 12/03/17 06:59 06:59 06:59 Intake Total 277 Output Total 1300 Balance -1023 Weight 54.431 kg General appearance: PRESENT: no acute distress, thin Head exam: PRESENT: atraumatic, normocephalic Mouth exam: PRESENT: moist Neck exam: ABSENT: tenderness Respiratory exam: PRESENT: clear to auscultation mehdi, unlabored Cardiovascular exam: PRESENT: RRR. ABSENT: systolic murmur Pulses: PRESENT: +1 pedal pulses bilateral GI/Abdominal exam: PRESENT: soft. ABSENT: tenderness Extremities exam: PRESENT: +2 edema - Bilateral ankles. Neurological exam: PRESENT: alert, awake Psychiatric exam: PRESENT: appropriate affect Skin exam: PRESENT: erythema - Lower legs. Additional comments: Patient very sleepy, but arouses briefly with verbal stimuli. Answers questions appropriately. Results Impressions: Hip/Pelvis X-Ray 12/01/17 17:53 IMPRESSION: Medial wall right acetabular fracture with protrusion of the femoral head into the bony pelvis Abdomen/Pelvis CT 12/01/17 19:16 IMPRESSION: RELATIVELY STABLE APPEARANCE OF PATHOLOGIC FRACTURE RIGHT ACETABULUM WHEN COMPARED TO PRIOR CT PERFORMED ON 11/03/2017. ADDITIONAL LYTIC LESION WITHIN THE LEFT ILIAC BONE COMPATIBLE WITH 2ND SITE OF OSSEOUS METASTATIC DISEASE. REMAINING FINDINGS ARE STABLE COMPARED TO PRIOR PET-CT PERFORMED ON 12/04/2016. Chest CT 12/01/17 19:16 IMPRESSION: ALTHOUGH THERE HAS BEEN INTERVAL IMPROVEMENT OF MEDIASTINAL AND HILAR LYMPHADENOPATHY WELL DOMINANT MASS RIGHT SUPRAHILAR LUNG AND RIGHT UPPER LOBE THERE HAS BEEN INTERVAL DEVELOPMENT OF NEW WILL ENLARGING PULMONARY NODULES/MASSES COMPATIBLE WITH OVERALL PROGRESSION OF METASTATIC LUNG CANCER. NEW BILATERAL LOWER LOBE AIRSPACE DISEASE SUSPICIOUS FOR PNEUMONIA. CORRELATE WITH FEVER/ELEVATED WHITE BLOOD CELL COUNT. Head CT 12/01/17 19:16 IMPRESSION: MILD CHRONIC CHANGES OF ATROPHY AND MICROVASCULAR ISCHEMIA. PARANASAL SINUS DISEASE. NO ACUTE INTRACRANIAL PROCESS. EVIDENCE OF ACUTE STROKE: NO. Assessment & Plan - Diagnosis (1) Lung cancer metastatic to bone Is this a current diagnosis for this admission?: Yes Plan: I reviewed the results of the CT C/A/P/Brain with the patient and daughter and a copy of these reports was given to them. Sadly, there has been progression of her lung cancer with multiple new pulmonary nodules. (2) Right acetabular fracture Qualifiers: Encounter type: initial encounter Sublocation of acetabulum: medial wall Fracture type: closed Fracture alignment: displaced Qualified Code(s): S32.471A - Displaced fracture of medial wall of right acetabulum, initial encounter for closed fracture Is this a current diagnosis for this admission?: Yes Plan: Her pain is currently well controlled. After discussions between Ortho, Dr. Butler, and family, decision was made NOT to undergo aggressive surgery. Continue current pain medications with goal of long and short acting oral/ dermal medications on discharge. (3) UTI (urinary tract infection) Qualifiers: Urinary tract infection type: acute cystitis Hematuria presence: without hematuria Qualified Code(s): N30.00 - Acute cystitis without hematuria Is this a current diagnosis for this admission?: Yes Plan: Agree with current antibiotics. - Plan Summary Plan Summary: I spoke with Arti, patient's daughter at length today at patient's bedside. She would greatly like a Hospice consult with goal of either Long-term Hospice facility or SNF closer to Arti in [place], [place] where patient and her other daughter may be in the same facility. I contacted [facility] and referral was made. Arti mentioned her first choice of facilities as [facility] in [place], [place].
--- NOTE | 2017-12-02 15:23 | PDOC PROGRESS REPORT ---
Subjective Progress Note for:: 12/02/17 Subjective:: ANUP OLIVEROS is a 77-year-old female who presented to the emergency department with bilateral lower extremity swelling and redness for approximately 1 week. She is also complaining of right hip pain. According to the daughter, the patient previously was able to ambulate with assistance but lately has been bedbound because of pain. The daughter also states that the patient has been having diarrhea with liquid nonbloody stool, also complaining of a dry cough for about 2 weeks. In the emergency department the patient remained hemodynamically stable. X-ray of right hip showed a medial wall right acetabular fracture. Additionally a chest CT shows questionable bilateral lower lobe pneumonia. Patient seen on morning rounds. She is awake, alert, oriented. She states she is pain free this morning. +rhales in all lung doty but the patient is not in respiratory distress. Reason For Visit: RIGHT HIP FRACTURE Physical Exam Vital Signs: Temp Pulse Resp BP Pulse Ox 97.4 F 76 16 117/45 L 95 12/02/17 07:57 12/02/17 07:57 12/02/17 07:57 12/02/17 07:57 12/02/17 07:57 Intake & Output 12/01/17 12/02/17 12/03/17 06:59 06:59 06:59 Intake Total 277 Output Total 1300 Balance -1023 Weight 54.431 kg General appearance: PRESENT: other - kaketic Head exam: PRESENT: atraumatic Eye exam: PRESENT: conjunctiva pink Mouth exam: PRESENT: moist Teeth exam: PRESENT: poor dentation Neck exam: PRESENT: full ROM Respiratory exam: PRESENT: rhonchi Cardiovascular exam: PRESENT: +S1, +S2 Pulses: PRESENT: normal radial pulses, +1 pedal pulses bilateral Vascular exam: PRESENT: normal capillary refill GI/Abdominal exam: PRESENT: normal bowel sounds, soft Extremities exam: PRESENT: pedal edema, +2 edema Musculoskeletal exam: PRESENT: full ROM, other - FULL ROM in upper extremities; LIMITED ROM in N/L lower extremities Neurological exam: PRESENT: alert, awake, oriented to person, oriented to place , oriented to time, oriented to situation Psychiatric exam: PRESENT: appropriate affect Results Impressions: Hip/Pelvis X-Ray 12/01/17 17:53 IMPRESSION: Medial wall right acetabular fracture with protrusion of the femoral head into the bony pelvis Abdomen/Pelvis CT 12/01/17 19:16 IMPRESSION: RELATIVELY STABLE APPEARANCE OF PATHOLOGIC FRACTURE RIGHT ACETABULUM WHEN COMPARED TO PRIOR CT PERFORMED ON 11/03/2017. ADDITIONAL LYTIC LESION WITHIN THE LEFT ILIAC BONE COMPATIBLE WITH 2ND SITE OF OSSEOUS METASTATIC DISEASE. REMAINING FINDINGS ARE STABLE COMPARED TO PRIOR PET-CT PERFORMED ON 12/04/2016. Chest CT 12/01/17 19:16 IMPRESSION: ALTHOUGH THERE HAS BEEN INTERVAL IMPROVEMENT OF MEDIASTINAL AND HILAR LYMPHADENOPATHY WELL DOMINANT MASS RIGHT SUPRAHILAR LUNG AND RIGHT UPPER LOBE THERE HAS BEEN INTERVAL DEVELOPMENT OF NEW WILL ENLARGING PULMONARY NODULES/MASSES COMPATIBLE WITH OVERALL PROGRESSION OF METASTATIC LUNG CANCER. NEW BILATERAL LOWER LOBE AIRSPACE DISEASE SUSPICIOUS FOR PNEUMONIA. CORRELATE WITH FEVER/ELEVATED WHITE BLOOD CELL COUNT. Head CT 12/01/17 19:16 IMPRESSION: MILD CHRONIC CHANGES OF ATROPHY AND MICROVASCULAR ISCHEMIA. PARANASAL SINUS DISEASE. NO ACUTE INTRACRANIAL PROCESS. EVIDENCE OF ACUTE STROKE: NO. Assessment & Plan - Diagnosis (1) Lung cancer metastatic to bone Is this a current diagnosis for this admission?: Yes Plan: The patient is being followed by Dr. Gomez. There has been no improvement in her disease process despite chemoradiation. Last chemotherapy was on 11/22/2017, last radiation therapy was 2weeks ago. Management per oncology. Daughter, KONG, talked with Dr. Hood today. She would like to pursue hospice with the goal of long-term hospice facility or SNF somewhere close to her home in [place]. Will recheck out to case management to assist with placement. (2) Right acetabular fracture Qualifiers: Encounter type: initial encounter Sublocation of acetabulum: medial wall Fracture type: closed Fracture alignment: displaced Qualified Code(s): S32.471A - Displaced fracture of medial wall of right acetabulum, initial encounter for closed fracture Is this a current diagnosis for this admission?: Yes Plan: Pathological fracture unchanged from 11/03/2017. The case was discussed with orthopedics, and oncology (Dr. Gomez). CT chest/abd/pelvis shows progression of her disease despite being on chemotherapy and radiation. Night time hospitalist discussed situation with daughter and patient, decision was made to treat conservatively. Continue pain management consisting of fentanyl, tylenol, and Percocet. (3) UTI (urinary tract infection) Qualifiers: Urinary tract infection type: acute cystitis Hematuria presence: without hematuria Qualified Code(s): N30.00 - Acute cystitis without hematuria Is this a current diagnosis for this admission?: Yes Plan: GNR in urine, continue broad spectrum antibiotics (for PNA). Will narrow antibiotic coverage once results from blood cultures are obtained. Hernandez placed in ED to assist with comfort, it is quite painful for the patient to roll onto bedpan. (4) Pneumonia Qualifiers: Pneumonia type: due to unspecified organism Laterality: bilateral Lung location: lower lobe of lung Qualified Code(s): J18.9 - Pneumonia, unspecified organism Is this a current diagnosis for this admission?: Yes Plan: Questionable bilateral lower lobe PNA seen on chest CTA. The patient denies fever or chills. This disease process could be related to the fact that she has been immobile for 2 weeks. She likely developed atelectasis, and with her immunosupression, she is at high risk for a respiratory infection. Rhales are heard bilaterally in all lung doty, but the patient does not appear to be in respiratory distress. Continue vancomycin and zosyn coverage. (5) Intractable pain Is this a current diagnosis for this admission?: Yes Plan: The patient is on a fentanyl patch, PRN IV fentanyl, and PRN PO Percocet. Pillow placed under R hip. The patient reports she is pain free this morning - Time Time Spent with patient: 15-24 minutes Medications reviewed and adjusted accordingly: Yes Anticipated discharge: SNF - Inpatient Certification Based on my medical assessment, after consideration of the patient's comorbidities, presenting symptoms, or acuity I expect that the services needed warrant INPATIENT care.: Yes I certify that my determination is in accordance with my understanding of Medicare's requirements for reasonable and necessary INPATIENT services [42 CFR 412.3e].: Yes Medical Necessity: Risk of Complication if Not Cared For in Hospital - Plan Summary Plan Summary: discharge to hospice
[2017-12-02] MEDS: VANCOMYCIN HCL 500 MG in DEXTROSE 5%-WATER 100 ML IV SCH (22:21)
[2017-12-03] MEDS: PIPERACILLIN SODIUM/TAZOBACTAM 3.375 GM in NORMAL SALINE 100 ML IV SCH ×4 (02:20→20:50)
[2017-12-03] MEDS: OXYCODONE-ACETAMINOPHEN 5-325 MG TABLET PO PRN ×2 (04:31→08:50)
[2017-12-03] MEDS: HEPARIN SOD (PORCINE) 5,000 UNIT/ML 1 ML SYRINGE SUBCUT SCH ×3 (06:16→21:34)
[2017-12-03] MEDS: FENTANYL CITRATE INJ/PF 100 MCG/2 ML AMPUL IV PRN ×3 (09:21→20:49)
[2017-12-03] MEDS: OXYCODONE HCL SR 10 MG TABLET PO SCH ×2 (10:31→21:34)
[2017-12-03] MEDS: VANCOMYCIN HCL 500 MG in DEXTROSE 5%-WATER 100 ML IV SCH ×2 (10:32→21:33)
[2017-12-03] MEDS: HYDROCORTISONE 0.5% CREAM 28.35 GM TP SCH ×2 (10:33→18:03)
--- NOTE | 2017-12-03 14:36 | PDOC PROGRESS REPORT ---
Subjective Progress Note for:: 12/03/17 Subjective:: ANUP OLIVEROS is a 77-year-old female who presented to the emergency department with right hip pain, bilateral lower extremity swelling and redness for approximately 1 week. According to the daughter, the patient previously was able to ambulate with assistance but lately has been bedbound because of pain. The daughter also states that the patient has been having diarrhea with liquid nonbloody stool, also complaining of a dry cough for about 2 weeks. X-ray of right hip showed a medial wall right acetabular fracture. Chest CT shows questionable bilateral lower lobe pneumonia. Patient seen on morning rounds. She is awake, alert, oriented. She states she is having quite a bit of right hip pain this morning. The nursing staff had just finished taking her off of a bedpan. The patient was crying because she was in so much pain. Daughter at the bedside, says the patient is interested in having surgery to fix her acetabular fracture if it means she can be pain- free. Reason For Visit: RIGHT HIP FRACTURE Physical Exam Vital Signs: Temp Pulse Resp BP Pulse Ox 98.4 F 80 17 104/45 L 94 12/03/17 12:00 12/03/17 12:00 12/03/17 12:00 12/03/17 12:00 12/03/17 12:00 Intake & Output 12/02/17 12/03/17 12/04/17 06:59 06:59 06:59 Intake Total 277 1312 720 Output Total 1300 1100 500 Balance -1023 212 220 Weight 54.431 kg 65.6 kg General appearance: PRESENT: other - Acute pain Head exam: PRESENT: atraumatic Eye exam: PRESENT: conjunctiva pink, PERRLA Mouth exam: PRESENT: moist Teeth exam: PRESENT: poor dentation Neck exam: PRESENT: full ROM Respiratory exam: PRESENT: rhonchi Cardiovascular exam: PRESENT: RRR, +S1, +S2 Pulses: PRESENT: normal radial pulses, +1 pedal pulses bilateral GI/Abdominal exam: PRESENT: normal bowel sounds, soft, tenderness Rectal exam: PRESENT: deferred Extremities exam: PRESENT: pedal edema, +2 edema Musculoskeletal exam: PRESENT: other - Full range of motion and 5/5 strength in upper extremities. Limited range of motion due to pain in bilateral lower extremities. Neurological exam: PRESENT: alert, awake, oriented to person, oriented to place , oriented to time, oriented to situation Psychiatric exam: PRESENT: appropriate affect Skin exam: PRESENT: erythema - Erythema noted in bilateral lower extremities, normal color Results Impressions: Hip/Pelvis X-Ray 12/01/17 17:53 IMPRESSION: Medial wall right acetabular fracture with protrusion of the femoral head into the bony pelvis Abdomen/Pelvis CT 12/01/17 19:16 IMPRESSION: RELATIVELY STABLE APPEARANCE OF PATHOLOGIC FRACTURE RIGHT ACETABULUM WHEN COMPARED TO PRIOR CT PERFORMED ON 11/03/2017. ADDITIONAL LYTIC LESION WITHIN THE LEFT ILIAC BONE COMPATIBLE WITH 2ND SITE OF OSSEOUS METASTATIC DISEASE. REMAINING FINDINGS ARE STABLE COMPARED TO PRIOR PET-CT PERFORMED ON 12/04/2016. Chest CT 12/01/17 19:16 IMPRESSION: ALTHOUGH THERE HAS BEEN INTERVAL IMPROVEMENT OF MEDIASTINAL AND HILAR LYMPHADENOPATHY WELL DOMINANT MASS RIGHT SUPRAHILAR LUNG AND RIGHT UPPER LOBE THERE HAS BEEN INTERVAL DEVELOPMENT OF NEW WILL ENLARGING PULMONARY NODULES/MASSES COMPATIBLE WITH OVERALL PROGRESSION OF METASTATIC LUNG CANCER. NEW BILATERAL LOWER LOBE AIRSPACE DISEASE SUSPICIOUS FOR PNEUMONIA. CORRELATE WITH FEVER/ELEVATED WHITE BLOOD CELL COUNT. Head CT 12/01/17 19:16 IMPRESSION: MILD CHRONIC CHANGES OF ATROPHY AND MICROVASCULAR ISCHEMIA. PARANASAL SINUS DISEASE. NO ACUTE INTRACRANIAL PROCESS. EVIDENCE OF ACUTE STROKE: NO. Status: Imported from PACS Assessment & Plan - Diagnosis (1) Lung cancer metastatic to bone Is this a current diagnosis for this admission?: Yes Plan: The patient is being followed by Dr. Gomez. There has been no improvement in her disease process despite chemoradiation. Last chemotherapy was on 11/22/2017, last radiation therapy was 2weeks ago. Discussed patient's prognosis today with Dr. ROSSI. She states that given the patient's extensive metastasis, there are no other chemoradiation options. Her recommendation to the patient and her family was to pursue hospice. Daughter, KONG, is at bedside. She would like to pursue hospice with the goal of long-term hospice facility somewhere close to her home in [place]. Will reach out to case management to assist with placement. (2) Right acetabular fracture Qualifiers: Encounter type: initial encounter Sublocation of acetabulum: medial wall Fracture type: closed Fracture alignment: displaced Qualified Code(s): S32.471A - Displaced fracture of medial wall of right acetabulum, initial encounter for closed fracture Is this a current diagnosis for this admission?: Yes Plan: Pathological fracture unchanged from 11/03/2017. The case was discussed with orthopedics, and oncology (Dr. Gomez). CT chest/abd/pelvis shows progression of her disease despite being on chemotherapy and radiation. The patient was stating this morning that she wanted to pursue surgery to repair her acetabular fracture if it meant she could be pain-free. Talk to Dr. ROSSI this morning regarding the patient's decision, she explained that the patient would likely not survive the surgery. Even if the patient did survive the surgery, she would likely within 2 weeks post-op. This information was relayed to the daughter and patient, the patient decided to forego the surgery and is agreeing to hospice. Will increase dose of patient's fentanyl patch, and increased as needed IV fentanyl dose. (3) UTI (urinary tract infection) Qualifiers: Urinary tract infection type: acute cystitis Hematuria presence: without hematuria Qualified Code(s): N30.00 - Acute cystitis without hematuria Is this a current diagnosis for this admission?: Yes Plan: GNR in urine, continue broad spectrum antibiotics (for PNA). Will narrow antibiotic coverage once results from blood cultures are obtained. Heranndez placed in ED to assist with comfort, it is quite painful for the patient to roll onto bedpan. (4) Pneumonia Qualifiers: Pneumonia type: due to unspecified organism Laterality: bilateral Lung location: lower lobe of lung Qualified Code(s): J18.9 - Pneumonia, unspecified organism Is this a current diagnosis for this admission?: Yes Plan: Questionable bilateral lower lobe PNA seen on chest CTA. The patient denies fever or chills. This disease process could be related to the fact that she has been immobile for 2 weeks. She likely developed atelectasis, and with her immunosupression, she is at high risk for a respiratory infection. Rhales are heard bilaterally in all lung doty, but the patient does not appear to be in respiratory distress. Continue vancomycin and zosyn coverage. (5) Intractable pain Is this a current diagnosis for this admission?: Yes Plan: The patient is on a fentanyl patch, PRN IV fentanyl. - Time Time Spent with patient: 25-34 minutes Medications reviewed and adjusted accordingly: Yes Anticipated discharge: Hospice - Inpatient Certification Based on my medical assessment, after consideration of the patient's comorbidities, presenting symptoms, or acuity I expect that the services needed warrant INPATIENT care.: Yes I certify that my determination is in accordance with my understanding of Medicare's requirements for reasonable and necessary INPATIENT services [42 CFR 412.3e].: Yes Medical Necessity: Need For IV Fluids, Need for IV Antibiotics, Risk of Complication if Not Cared For in Hospital - Plan Summary Plan Summary: Ultimately, the plan is to discharge to hospice
[2017-12-04] MEDS: FENTANYL CITRATE INJ/PF 100 MCG/2 ML AMPUL IV PRN ×2 (00:29→05:23)
[2017-12-04] MEDS: PIPERACILLIN SODIUM/TAZOBACTAM 3.375 GM in NORMAL SALINE 100 ML IV SCH ×4 (02:40→21:13)
[2017-12-04] MEDS: HEPARIN SOD (PORCINE) 5,000 UNIT/ML 1 ML SYRINGE SUBCUT SCH ×3 (05:21→21:13)
[2017-12-04] MEDS ORDERED: HYDROMORPHONE HCL INJ/PF 2 MG/ML AMPULE ONE (08:15)
--- NOTE | 2017-12-04 08:25 | PDOC PROGRESS REPORT ---
Subjective Progress Note for:: 12/04/17 Subjective:: Pt still having significant pain but is alert, oriented, and fully understanding of her condition, she asked whether surgical intervention on R femur fracture was possible, she really would like to be mobile and have better pain control in whatever time she has left. I discussed her case w/ her daughter rona [phone] landyr, ortho onc, he will see her today and see if intervention here is possible. Today spent >45 min in discussion and coordination of care. I also increased fentanyl and oxycodone today Reason For Visit: RIGHT HIP FRACTURE Physical Exam Vital Signs: Temp Pulse Resp BP Pulse Ox 97.8 F 91 18 101/51 L 91 L 12/03/17 23:20 12/03/17 23:20 12/03/17 23:20 12/03/17 23:20 12/03/17 23:54 Intake & Output 12/03/17 12/04/17 12/05/17 06:59 06:59 06:59 Intake Total 1312 1970 Output Total 1100 1650 Balance 212 320 Weight 65.6 kg 66.1 kg General appearance: PRESENT: no acute distress, well-developed, well-nourished Head exam: PRESENT: atraumatic, normocephalic Eye exam: PRESENT: conjunctiva pink, EOMI, PERRLA. ABSENT: scleral icterus Ear exam: PRESENT: normal external ear exam Mouth exam: PRESENT: moist, tongue midline Neck exam: ABSENT: carotid bruit, JVD, lymphadenopathy, thyromegaly Respiratory exam: PRESENT: clear to auscultation mehdi. ABSENT: rales, rhonchi, wheezes Cardiovascular exam: PRESENT: RRR. ABSENT: diastolic murmur, rubs, systolic murmur Pulses: PRESENT: normal dorsalis pedis pul Vascular exam: PRESENT: normal capillary refill GI/Abdominal exam: PRESENT: normal bowel sounds, soft. ABSENT: distended, guarding, mass, organolmegaly, rebound, tenderness Rectal exam: PRESENT: deferred Extremities exam: PRESENT: full ROM. ABSENT: calf tenderness, clubbing, pedal edema Neurological exam: PRESENT: alert, awake, oriented to person, oriented to place , oriented to time, oriented to situation, CN II-XII grossly intact. ABSENT: motor sensory deficit Psychiatric exam: PRESENT: appropriate affect, normal mood. ABSENT: homicidal ideation, suicidal ideation Skin exam: PRESENT: dry, intact, warm. ABSENT: cyanosis, rash Results Impressions: Hip/Pelvis X-Ray 12/01/17 17:53 IMPRESSION: Medial wall right acetabular fracture with protrusion of the femoral head into the bony pelvis Abdomen/Pelvis CT 12/01/17 19:16 IMPRESSION: RELATIVELY STABLE APPEARANCE OF PATHOLOGIC FRACTURE RIGHT ACETABULUM WHEN COMPARED TO PRIOR CT PERFORMED ON 11/03/2017. ADDITIONAL LYTIC LESION WITHIN THE LEFT ILIAC BONE COMPATIBLE WITH 2ND SITE OF OSSEOUS METASTATIC DISEASE. REMAINING FINDINGS ARE STABLE COMPARED TO PRIOR PET-CT PERFORMED ON 12/04/2016. Chest CT 12/01/17 19:16 IMPRESSION: ALTHOUGH THERE HAS BEEN INTERVAL IMPROVEMENT OF MEDIASTINAL AND HILAR LYMPHADENOPATHY WELL DOMINANT MASS RIGHT SUPRAHILAR LUNG AND RIGHT UPPER LOBE THERE HAS BEEN INTERVAL DEVELOPMENT OF NEW WILL ENLARGING PULMONARY NODULES/MASSES COMPATIBLE WITH OVERALL PROGRESSION OF METASTATIC LUNG CANCER. NEW BILATERAL LOWER LOBE AIRSPACE DISEASE SUSPICIOUS FOR PNEUMONIA. CORRELATE WITH FEVER/ELEVATED WHITE BLOOD CELL COUNT. Head CT 12/01/17 19:16 IMPRESSION: MILD CHRONIC CHANGES OF ATROPHY AND MICROVASCULAR ISCHEMIA. PARANASAL SINUS DISEASE. NO ACUTE INTRACRANIAL PROCESS. EVIDENCE OF ACUTE STROKE: NO. Assessment & Plan - Diagnosis (1) Right acetabular fracture Qualifiers: Encounter type: subsequent encounter Sublocation of acetabulum: medial wall Fracture type: closed Fracture alignment: displaced Qualified Code(s) : S32.471A - Displaced fracture of medial wall of right acetabulum, initial encounter for closed fracture Is this a current diagnosis for this admission?: Yes Plan: Discussed with Dr. Landry, will see if intervention is possible. (2) Lung cancer metastatic to bone Is this a current diagnosis for this admission?: Yes Plan: No further chemo/rx would be of benefit, hospice care being planned as oupt eventually. But home situation is difficult, pt was caring for her daughter w/ severe disabilities, her other daughter, rona lives in [place], so pt and daughter meeting w/ hospice at present. - Time Time Spent with patient: 35 or more minutes
--- NOTE | 2017-12-04 08:33 | PDOC CONSULTATION ---
Consultation Consult Date: 12/04/17 Consult reason:: Right pathologic acetabular fracture protrusio History of Present Illness Admission Date/PCP: 12/01/17 22:38 RADHA GOODE History of Present Illness: 77-year-old white female with metastatic non-small cell lung carcinoma in her right acetabular fracture. Patient initially was felt to have a relatively short survival outlook and was treated with external beam radiation therapy. By report approximately 2000 rad. She is now immobile in bed with excruciating pain with any passive range of motion of the right lower extremity. Orthopedics is consulted for potential surgical options Past Medical History Cardiac Medical History: Denies: Coronary Artery Disease, Myocardial Infarction, Hypertension Pulmonary Medical History: Reports: Bronchitis, Chronic Obstructive Pulmonary Disease (COPD) - COPD Denies: Asthma, Pneumonia Neurological Medical History: Denies: Seizures Malignancy Medical History: Reports: Lung Cancer - with mets., Other - bladder cancer GI Medical History: Denies: Hepatitis, Hiatal Hernia Musculoskeltal Medical History: Reports: Arthritis - Hands and Knees Psychiatric Medical History: Denies: Depression Hematology: Denies: Anemia, Sickle Cell Disease Past Surgical History Past Surgical History: Reports: Other - bladder cancer, post sling placed per daughter. Denies: Amputation, Mastectomy, Pacemaker Social History Information Source: Patient, [facility], [facility] Records Lives with: Alone, Other - Daughter, Chantelle is heavily involved in her care Smoking Status: Unknown if Ever Smoked Cigarettes Packs Per Day: 0 - Used to smoke less than a pack a day for many years. She quit a year ago. Last Time Smoked: quit in 2017 Frequency of Alcohol Use: None Hx Prescription Drug Abuse: No - Advance Directive Resuscitation Status: Do Not Intubate Family History Family History: Reviewed & Not Pertinent Parental Family History Reviewed: No Children Family History Reviewed: No Sibling(s) Family History Reviewed.: No Medication/Allergy Home Medications: Dronabinol [Marinol] 5 mg PO DAILY@08,12 12/02/17 Fentanyl [Duragesic 100 Mcg/Hr Transdermal Patch] 100 mcg TOP Q3D 12/02/17 Hydromorphone HCl [Dilaudid] 4 mg PO Q6HP PRN 12/02/17 Omeprazole 20 mg PO QHS 12/02/17 Ondansetron HCl [Zofran 8 mg Tablet] 8 mg PO Q8HP PRN 12/02/17 Potassium Chloride [Klor-Con M20] 20 meq PO DAILY 12/02/17 Prochlorperazine Maleate [Compazine 10 mg Tablet] 10 mg PO Q4HP PRN 12/02/17 Tiotropium [place] [Spiriva Handihaler 18 mcg/dose (30 Dose)] 1 cap IH DAILY Allergies/Adverse Reactions: No Known Allergies Allergy (Verified 01/29/13 12:55) Review of Systems All systems: as per H Physical Exam Vital Signs: Temp Pulse Resp BP Pulse Ox 36.6 C 91 18 101/51 L 91 L 12/03/17 23:20 12/03/17 23:20 12/03/17 23:20 12/03/17 23:20 12/03/17 23:54 Intake & Output 12/03/17 12/04/17 12/05/17 06:59 06:59 06:59 Intake Total 1312 1970 Output Total 1100 1650 Balance 212 320 Weight 65.6 kg 66.1 kg Physical Exam: Frail appearing elderly white female lying in hospital bed. Both lower extremities are elevated on pillows. Skin has erythematous rash topically of uncertain etiology that includes both the trunk and both lower extremities. There is considerable lower extremity edema. Any passive range of motion of the right hip causes extreme pain. Right second toe deformity General appearance: PRESENT: mild distress Head exam: PRESENT: normocephalic Respiratory exam: PRESENT: unlabored Cardiovascular exam: PRESENT: RRR Pulses: PRESENT: +1 pedal pulses bilateral Extremities exam: PRESENT: other - Erythematous and edematous bilaterally Neurological exam: PRESENT: alert, awake, oriented to person, oriented to place , oriented to time, oriented to situation. ABSENT: motor sensory deficit Psychiatric exam: PRESENT: appropriate affect, normal mood. ABSENT: homicidal ideation, suicidal ideation Skin exam: PRESENT: dry, intact, warm. ABSENT: cyanosis, rash Results Impressions: Hip/Pelvis X-Ray 12/01/17 17:53 IMPRESSION: Medial wall right acetabular fracture with protrusion of the femoral head into the bony pelvis Abdomen/Pelvis CT 12/01/17 19:16 IMPRESSION: RELATIVELY STABLE APPEARANCE OF PATHOLOGIC FRACTURE RIGHT ACETABULUM WHEN COMPARED TO PRIOR CT PERFORMED ON 11/03/2017. ADDITIONAL LYTIC LESION WITHIN THE LEFT ILIAC BONE COMPATIBLE WITH 2ND SITE OF OSSEOUS METASTATIC DISEASE. REMAINING FINDINGS ARE STABLE COMPARED TO PRIOR PET-CT PERFORMED ON 12/04/2016. Chest CT 12/01/17 19:16 IMPRESSION: ALTHOUGH THERE HAS BEEN INTERVAL IMPROVEMENT OF MEDIASTINAL AND HILAR LYMPHADENOPATHY WELL DOMINANT MASS RIGHT SUPRAHILAR LUNG AND RIGHT UPPER LOBE THERE HAS BEEN INTERVAL DEVELOPMENT OF NEW WILL ENLARGING PULMONARY NODULES/MASSES COMPATIBLE WITH OVERALL PROGRESSION OF METASTATIC LUNG CANCER. NEW BILATERAL LOWER LOBE AIRSPACE DISEASE SUSPICIOUS FOR PNEUMONIA. CORRELATE WITH FEVER/ELEVATED WHITE BLOOD CELL COUNT. Head CT 12/01/17 19:16 IMPRESSION: MILD CHRONIC CHANGES OF ATROPHY AND MICROVASCULAR ISCHEMIA. PARANASAL SINUS DISEASE. NO ACUTE INTRACRANIAL PROCESS. EVIDENCE OF ACUTE STROKE: NO. Status: Imported from PACS Assessment & Plan - Diagnosis (1) Right acetabular fracture Qualifiers: Encounter type: subsequent encounter Sublocation of acetabulum: medial wall Fracture type: closed Fracture alignment: displaced Qualified Code(s) : S32.471A - Displaced fracture of medial wall of right acetabulum, initial encounter for closed fracture Is this a current diagnosis for this admission?: Yes Plan: 77-year-old white female with metastatic non-small cell lung carcinoma and a right acetabular fracture with protrusio. Any surgical intervention in this patient is at high risk both because of her overall medical condition and the recent radiation therapy. However having said this I think her current quality of life is extremely limited and I think it is reasonable to proceed with a right hip reconstructive surgery as long was all involved except the increased level of risk. I had a long discussion with both the patient and her daughter today about this risk. - Time Time Spent: 50 to 70 Minutes Anticipated discharge: SNF Within: Other
[2017-12-04] MEDS ORDERED: FENTANYL CITRATE INJ/PF 100 MCG/2 ML AMPUL IV PRN (08:34)
[2017-12-04] MEDS: OXYCODONE HCL IR 5 MG TABLET PO PRN ×2 (09:00→21:13)
[2017-12-04] MEDS: HYDROCORTISONE 0.5% CREAM 28.35 GM TP SCH ×2 (09:09→18:37)
--- NOTE | 2017-12-04 09:50 | RADIOLOGY REPORT (SQ) ---
EXAM DESCRIPTION: CT ABD/PELVIS NO ORAL OR IV COMPLETED DATE/TIME: 12/04/2017 9:22 am REASON FOR STUDY: Evaluate bone stock in right pathologic acetabular COMPARISON: None. TECHNIQUE: CT scan of the abdomen and pelvis performed without intravenous or oral contrast. Images reviewed with lung, soft tissue, and bone windows. Reconstructed coronal and sagittal MPR images revi ewed. All images stored on PACS. All CT scanners at this facility use dose modulation, iterative reconstruction, and/or weight based d osing when appropriate to reduce radiation dose to as low as reasonably achievable (ALARA). [facility]: Dose Right [facility]: CareDose [facility]: Dose Right [facility]: Teradose 4D [facility]: Smart Skimbl RADIATION DOSE: CT Rad equipment meets quality standard of care and radiation dose reduction techniq ues were employed. CTDIvol: 13.4 mGy. DLP: 689 mGy-cm.mGy. LIMITATIONS: None. FINDINGS: LOWER CHEST: There are multiple pulmonary masses noted within the lower lobes and lingula. Bibasilar consolidation and effusions are noted. There is beading along the right and left oblique fissures. These findings are compatible with metastatic disease. NON-CONTRASTED LIVER, SPLEEN, ADRENALS: Liver: Fatty infiltration. Spleen: No abnormality. Adrenals: No abnormality. PANCREAS: No abnormality seen. GALLBLADDER: Status post cholecystectomy. RIGHT KIDNEY AND URETER: No abnormality seen. LEFT KIDNEY AND URETER: No abnormality seen. AORTA AND RETROPERITONEUM: Atherosclerotic change of the abdominal aorta iliac and femoral vessels. BOWEL AND PERITONEAL CAVITY: No obvious masses or inflammatory changes. No free fluid. APPENDIX: Normal. PELVIS, BLADDER, AND ABDOMINAL WALL:No abnormal masses. No free fluid. Bladder normal. BONES: There is suggestive lytic change in the left ischium.There is a comminuted impacted fracture o f the right acetabulum with comminution of the anterior and posterior column. Medial migration of th e femoral head with impaction along the anterior femoral head noted. There is an expansile lytic les ion noted within the left ilium adjacent to the left SI joint. These findings compatible with change s of metastatic disease. Degenerative arthritis left hip. There is evidence of soft tissue anasarca . IMPRESSION: 1. There is evidence of multiple bilateral pulmonary masses consistent with metastatic disease. Bibasilar infiltrate and effusions. Fatty infiltration liver. Status post cholecystectomy . Pathological fracture of right hip and acetabulum. Expansile lytic lesion left ilium at the SI rod int. Possible lytic change left ischium. These findings are compatible with changes of metastatic c arcinoma of the lung by history COMMENT: Quality ID # [id number]: Final reports with documentation of one or more dose reduction techniques (e.g., Automated exposure control, adjustment of the mA and/or kV according to patient size, use of iterative reconstruction technique) TECHNICAL DOCUMENTATION: JOB ID: [id number] SC-[id number] 2010 [employer]- All Rights Reserved Reading location - IP/workstation name: [email or web address]
[2017-12-04] MEDS ORDERED: FENTANYL 50 MCG/HR PATCH.TD72 TD SCH (10:00)
[2017-12-04] MEDS ORDERED: FENTANYL 100 MCG/HR PATCH.TD72 TD SCH (10:00)
[2017-12-04] MEDS: VANCOMYCIN HCL 500 MG in DEXTROSE 5%-WATER 100 ML IV SCH (10:30)
[2017-12-04] MEDS: HYDROMORPHONE HCL INJ/PF 2 MG/ML AMPULE IV PRN (14:48)
--- NOTE | 2017-12-04 17:41 | PDOC PROGRESS REPORT ---
Subjective Progress Note for:: 12/04/17 Subjective:: ANUP OLIVEROS is a 77-year-old female who presented to the emergency department with right hip pain, bilateral lower extremity swelling and redness for approximately 1 week. According to the daughter, the patient previously was able to ambulate with assistance but lately has been bedbound because of pain. The daughter also states that the patient has been having diarrhea with liquid nonbloody stool, also complaining of a dry cough for about 2 weeks. X-ray of right hip showed a medial wall right acetabular fracture. Chest CT shows questionable bilateral lower lobe pneumonia. Patient seen on morning rounds. She is awake, alert, oriented. The patient states that she is in excruciating pain and wants to pursue a surgical intervention to repair her acetabular fracture. Dr. GOMEZ aware. Dr. Prescott came to see the patient this morning, had a long discussion with the patient and daughter, KONG, about the high risk nature of this procedure given the patient's frail medical condition. The patient's pain regimen was expanded from a fentanyl patch and PRN IV fentanyl to include PRN IV Dilaudid and PO OxyContin. Reason For Visit: RIGHT HIP FRACTURE Physical Exam Vital Signs: Temp Pulse Resp BP Pulse Ox 97.7 F 82 16 95/43 L 95 12/04/17 11:35 12/04/17 11:38 12/04/17 11:38 12/04/17 11:35 12/04/17 07:45 Intake & Output 12/03/17 12/04/17 12/05/17 06:59 06:59 06:59 Intake Total 1312 1970 Output Total 1100 1650 Balance 212 320 Weight 65.6 kg 66.1 kg Results Laboratory Results: 12/04/17 10:03 12/04/17 10:03 Creatinine 0.61 Est GFR ( Amer) > 60 Est GFR (Non-Af Amer) > 60 Impressions: Hip/Pelvis X-Ray 12/01/17 17:53 IMPRESSION: Medial wall right acetabular fracture with protrusion of the femoral head into the bony pelvis Chest CT 12/01/17 19:16 IMPRESSION: ALTHOUGH THERE HAS BEEN INTERVAL IMPROVEMENT OF MEDIASTINAL AND HILAR LYMPHADENOPATHY WELL DOMINANT MASS RIGHT SUPRAHILAR LUNG AND RIGHT UPPER LOBE THERE HAS BEEN INTERVAL DEVELOPMENT OF NEW WILL ENLARGING PULMONARY NODULES/MASSES COMPATIBLE WITH OVERALL PROGRESSION OF METASTATIC LUNG CANCER. NEW BILATERAL LOWER LOBE AIRSPACE DISEASE SUSPICIOUS FOR PNEUMONIA. CORRELATE WITH FEVER/ELEVATED WHITE BLOOD CELL COUNT. Head CT 12/01/17 19:16 IMPRESSION: MILD CHRONIC CHANGES OF ATROPHY AND MICROVASCULAR ISCHEMIA. PARANASAL SINUS DISEASE. NO ACUTE INTRACRANIAL PROCESS. EVIDENCE OF ACUTE STROKE: NO. Abdomen/Pelvis CT 12/04/17 00:00 IMPRESSION: 1. There is evidence of multiple bilateral pulmonary masses consistent with metastatic disease. Bibasilar infiltrate and effusions. Fatty infiltration liver. Status post cholecystectomy. Pathological fracture of right hip and acetabulum. Expansile lytic lesion left ilium at the SI joint. Possible lytic change left ischium. These findings are compatible with changes of metastatic carcinoma of the lung by history Assessment & Plan - Diagnosis (1) Lung cancer metastatic to bone Is this a current diagnosis for this admission?: Yes Plan: The patient is being followed by Dr. Gomez. There has been no improvement in her disease process despite chemoradiation. Last chemotherapy was on 11/22/2017, last radiation therapy was 2weeks ago. Discussed patient's prognosis today with Dr. Gomez. He states that given the patient's extensive metastasis, there are no other chemoradiation options. Given the patient's current quality of life -she is in constant excruciating pain and has extremely limited movement , the decision was made to pursue reconstructive surgery of the patient's right hip. If the patient survived the surgery, the plan is to attempt moving her to a hospice facility in [place]. (2) Right acetabular fracture Qualifiers: Encounter type: subsequent encounter Sublocation of acetabulum: medial wall Fracture type: closed Fracture alignment: displaced Is this a current diagnosis for this admission?: Yes Plan: Pathological fracture unchanged from 11/03/2017. The case was discussed with orthopedics, and oncology (Dr. Gomez). CT chest/abd/pelvis shows progression of her disease despite being on chemotherapy and radiation. The patient was stating this morning that she wanted to pursue surgery to repair her acetabular fracture if it meant she could be pain-free. Given the patient's current quality of life -she is in constant excruciating pain and has extremely limited movement, the decision was made to pursue reconstructive surgery of the patient's right hip. Dr. Prescott evaluated the patient this morning, plan for surgery on ?Monday? if not later in the week. In the mean time, her pain regimen has been expanded to include IV dilaudid and increase IV fentanyl dosage. All parties involved -oncology, orthopedic surgery, hospitalist, patient, and family are aware of the high risk nature of the surgery due to the patient's fragile health condition. (3) UTI (urinary tract infection) Qualifiers: Urinary tract infection type: acute cystitis Hematuria presence: without hematuria Qualified Code(s): N30.00 - Acute cystitis without hematuria Is this a current diagnosis for this admission?: Yes Plan: E. coli and Klebsiella in urine, both susceptible to Zosyn. Continue vanc/zosyn for PNA, with double coverage from zosyn for UTI. Hernandez placed in ED to assist with comfort, it is quite painful for the patient to roll onto bedpan. (4) Pneumonia Qualifiers: Pneumonia type: due to unspecified organism Laterality: bilateral Lung location: lower lobe of lung Qualified Code(s): J18.9 - Pneumonia, unspecified organism Is this a current diagnosis for this admission?: Yes Plan: Questionable bilateral lower lobe PNA seen on chest CTA. The patient denies fever or chills. This disease process could be related to the fact that she has been immobile for 2 weeks. She likely developed atelectasis, and with her immunosupression, she is at high risk for a respiratory infection. Rhales are heard bilaterally in all lung doty, but the patient does not appear to be in respiratory distress. Continue vancomycin and zosyn coverage. (5) Intractable pain Is this a current diagnosis for this admission?: Yes Plan: The patient is on a fentanyl patch, PRN IV fentanyl, PRN IV dilaudid, PO OxyContin, and tylenol - Time Time Spent with patient: 15-24 minutes Medications reviewed and adjusted accordingly: Yes Anticipated discharge: Hospice - Inpatient Certification Based on my medical assessment, after consideration of the patient's comorbidities, presenting symptoms, or acuity I expect that the services needed warrant INPATIENT care.: Yes I certify that my determination is in accordance with my understanding of Medicare's requirements for reasonable and necessary INPATIENT services [42 CFR 412.3e].: Yes Medical Necessity: Risk of Complication if Not Cared For in Hospital - Plan Summary Plan Summary: Plan for R acetabular fracture repair and then discharged to hospice
[2017-12-04] MEDS: VANCOMYCIN HCL 500 MG in NORMAL SALINE 100 ML IV SCH (22:22)
--- NOTE | 2017-12-04 23:30 | Palliative Consultation Report ---
Consultation From:: NEVILLE ROB Consult Reason: Palliative care consult - HPI HPI: Palliaitve care Consult visit 12/04/17 11:35 AM Appreciate palliative care consult request for this 77 year ols patient who I have been following at home before admission. Mrs. Wilson has a history of lung cancer which has metastasized to her bones. She has had radiation to her femurs and right hip to reduce pain over the past month. This unfortunately did not relieve her pain. She also has been continuing chemo treatments for lung cancer. Patient lives independently in her home in [place]. Her mentally handicapped daughter has always lived with her and she has been caring for this daughter until she could not do so. Her other daughter lives in [place] and is trying to make arranements for patient and her sister to be moved to [place] for care. Mrs. Wilson has a son in [place]. She has had paid caregivers this past week as she could not even get to [facility] alone. Mrs Wilson did not want to accept Rx from me to change her pain meds as she wanted to talk with Dr. Butler before making any changes. Last week, Mrs. Wilson became too weak with too much pain to stand or to pivot to BSC or wheelchair. She had been sleeping in her lift chair for weeks because it was too difficult for her to get into bed. Hospital bed was ordered for her but she did not want it. Her daughter came into town and was anxiously seeking care for the patient as she could not lift her and could not stay here indefinitely. Patient was very frail and weak, sleeping each time I saw her, very drowsy from pain meds. She was eating very little and sleeping most of the time. She had developed a macular, reddened rash below the surface of the skin on both thighs, but none on abdomen or lower legs. She deined itching or burning with this. She also had stage 2 pressure wound developing on coccyx area which we treated with Calmoseptine cream. Hospice services were discussed, care at hospice care center discussed and residential care at the care center seemed to be the best option for care until daughter could get patient transferred to [place]. Patietn awoke and we discused hospice services with her to help treat pain and get her more continuous care. She did understand what we were offering. As we continued discussion patient became more awake to the point that she could eat a bowl of soup and also helped her daughter write checks to pay bills. Care center was full that day, so arrangements were made to admit her to hospice program that day, get her a hospital bed and transfer her to care center as soon as bed became available, which was thought to be as early as the next day. However, later that afternoon, I was told that patient changed her mind about hospice and wanted to conitnue chemotherapy per Dr. Butler. Her daughter was in agreement with this plan, so bed was ordered for home use and I agreed to check on her in a few days. Two days later, patient was moved to [facility] for pain control. Dr. Hood was consulted and gently explained to patient that in spite of treatment her cancer has progressed. SHe has opted to have surgery to stabilize the pathologic fracture in her right acetabulum/femur., which she hopes will relieve pain. It has been very difficult for this patient to accept the severeity of her disease. Today, at the time of my visit, patient is asleep, looking again very frail and weak, but with no sign of pain. She is breathing easilly. No family at bedside at the time. Hospice liason RN came to hospital earlier to speak with daughter about support and care as needed after patietn has surgery. Onset: Last week Onset/Duration: Gradual Quality of Pain: Stabbing, Throbbing Associated Symptoms: Body/muscle aches, Weakness Exacerbated by: Standing, Movement Relieved by: Remaining still Past Medical History(Consults) - General Information Source: Patient, [facility] Records Home Medications: Dronabinol [Marinol] 5 mg PO DAILY@08,12 12/02/17 Fentanyl [Duragesic 100 Mcg/Hr Transdermal Patch] 100 mcg TOP Q3D 12/02/17 Hydromorphone HCl [Dilaudid] 4 mg PO Q6HP PRN 12/02/17 Omeprazole 20 mg PO QHS 12/02/17 Ondansetron HCl [Zofran 8 mg Tablet] 8 mg PO Q8HP PRN 12/02/17 Potassium Chloride [Klor-Con M20] 20 meq PO DAILY 12/02/17 Prochlorperazine Maleate [Compazine 10 mg Tablet] 10 mg PO Q4HP PRN 02/24/18 Tiotropium Hamilton [Spiriva Handihaler 18 mcg/dose (30 Dose)] 1 cap IH DAILY Allergies/Adverse Reactions: No Known Allergies Allergy (Verified 01/29/13 12:55) - Social History Lives with: Alone, Other - Daughter, Chantelle is heavily involved in her care Family History: Reviewed & Not Pertinent Parental Family History Reviewed: No Children Family History Reviewed: No Sibling(s) Family History Reviewed.: No Smoking Status: Unknown if Ever Smoked Cigarettes Packs Per Day: 0 - Used to smoke less than a pack a day for many years. She quit a year ago. Last Time Smoked: quit in 2017 Frequency of Alcohol Use: None Hx Prescription Drug Abuse: No - Past Medical History Cardiac Medical History: Denies: Hx Coronary Artery Disease, Hx Heart Attack, Hx Hypertension Pulmonary Medical History: Reports: Hx Bronchitis, Hx COPD - COPD Denies: Hx Asthma, Hx Pneumonia Neurological Medical History: Denies: Hx Cerebrovascular Accident, Hx Seizures Renal/ Medical History: Denies: Hx Peritoneal Dialysis Malignancy Medical History: Reports: Hx Lung Cancer - with mets., Other - bladder cancer GI Medical History: Denies: Hx Hepatitis, Hx Hiatal Hernia, Hx Ulcer Musculoskeltal Medical History: Reports Hx Arthritis - Hands and Knees Psychiatric Medical History: Denies: Hx Depression Infectious Medical History: Reports: None. Denies: Hx Hepatitis Hematology: Denies: Anemia, Sickle Cell Disease - Surgical History Past Surgical History: Reports: Other - bladder cancer, post sling placed per daughter.. Denies: Hx Mastectomy, Hx Open Heart Surgery, Hx Pacemaker Review of systems Constitutional: Weakness, Weight loss Cardiovascular: Dyspnea Respiratory: Short of breath Gastrointestinal: Poor appetite Geniturinary: Incontinence Female Genitourinary: No symptoms reported Skin: Rash Neurological/Psychological: Confusion, Anxiety, Weakness Ojective:Exam Vital Signs: Temp Pulse Resp BP Pulse Ox 98.2 F 94 18 112/60 93 12/04/17 20:00 12/04/17 20:00 12/04/17 20:00 12/04/17 20:00 12/04/17 20:00 Intake & Output 12/03/17 12/04/17 12/05/17 06:59 06:59 06:59 Intake Total 1312 1970 650 Output Total 1100 1650 750 Balance 212 320 -100 Weight 65.6 kg 66.1 kg - General General Appearance: Lethargic In distress: None - HEENT Head: Normocephalic Mucous membrane: Moist - Respiratory Respiratory Status: No respiratory distress Breath sounds: Clear - Cardiovascular Rhythm: Regular - Neurological Cognition: Other - Drowsy Objective-Diagnostic Laboratory: 12/04/17 10:03 12/04/17 10:03 Creatinine 0.61 Est GFR ( Amer) > 60 Est GFR (Non-Af Amer) > 60 Plan and Recommendation Plan and Recommendation: Glad to see patient more comfortable. Planning to have surgical stabilization hip and is being treated for pneumoinia and UTI, both probably from inability to get out of her chair or move about, as well as postponing voiding. Patient did not want valencia at home. when offered. Will follow for support daughter and patient. Appreciate care for fracture., and other problems. Will try to help family resolve care issues and transfer to [place] after discharge. - Time Spent with Patient Time spent with patient: 15 to 30 Minutes Time: 25 min
[2017-12-05] MEDS: PIPERACILLIN SODIUM/TAZOBACTAM 3.375 GM in NORMAL SALINE 100 ML IV SCH ×4 (03:10→21:32)
[2017-12-05] MEDS: OXYCODONE HCL IR 5 MG TABLET PO PRN ×3 (03:11→14:45)
[2017-12-05] MEDS: HYDROMORPHONE HCL INJ/PF 2 MG/ML AMPULE IV PRN (04:06)
[2017-12-05] MEDS: HEPARIN SOD (PORCINE) 5,000 UNIT/ML 1 ML SYRINGE SUBCUT SCH ×3 (05:39→21:32)
--- NOTE | 2017-12-05 07:04 | PDOC PROGRESS REPORT ---
Subjective Progress Note for:: 12/05/17 Subjective:: 77-year-old white female with pathologic right hip and acetabular protrusio fracture. Patient resting quietly this morning and unarousable the name calling. Reason For Visit: RIGHT HIP FRACTURE Physical Exam Vital Signs: Temp Pulse Resp BP Pulse Ox 37.1 C 81 16 101/46 L 92 12/05/17 00:00 12/05/17 00:00 12/05/17 00:00 12/05/17 00:00 12/05/17 00:00 Intake & Output 12/03/17 12/04/17 12/05/17 06:59 06:59 06:59 Intake Total 1312 1970 1620 Output Total 1100 1650 1200 Balance 212 320 420 Weight 65.6 kg 66.1 kg 66.1 kg Physical Exam: Physical exam grossly unchanged from exam on December 04, 2017. General appearance: PRESENT: no acute distress, well-developed, well-nourished Head exam: PRESENT: atraumatic, normocephalic Respiratory exam: PRESENT: unlabored Pulses: PRESENT: normal dorsalis pedis pul, +2 pedal pulses bilateral Vascular exam: PRESENT: normal capillary refill Additional comments: Again patient resting quietly in the position in hospital bed. Unarousable to name calling and questions asked. Per nursing staff she was much more comfortable overnight with addition of new analgesic medications. Additional comments: Patient currently nonambulatory. Additional comments: Again patient resting quietly and unarousable. Skin exam: PRESENT: dry, intact, warm. ABSENT: cyanosis, rash Results Laboratory Results: 12/04/17 10:03 12/04/17 10:03 Creatinine 0.61 Est GFR ( Amer) > 60 Est GFR (Non-Af Amer) > 60 Impressions: Hip/Pelvis X-Ray 12/01/17 17:53 IMPRESSION: Medial wall right acetabular fracture with protrusion of the femoral head into the bony pelvis Chest CT 12/01/17 19:16 IMPRESSION: ALTHOUGH THERE HAS BEEN INTERVAL IMPROVEMENT OF MEDIASTINAL AND HILAR LYMPHADENOPATHY WELL DOMINANT MASS RIGHT SUPRAHILAR LUNG AND RIGHT UPPER LOBE THERE HAS BEEN INTERVAL DEVELOPMENT OF NEW WILL ENLARGING PULMONARY NODULES/MASSES COMPATIBLE WITH OVERALL PROGRESSION OF METASTATIC LUNG CANCER. NEW BILATERAL LOWER LOBE AIRSPACE DISEASE SUSPICIOUS FOR PNEUMONIA. CORRELATE WITH FEVER/ELEVATED WHITE BLOOD CELL COUNT. Head CT 12/01/17 19:16 IMPRESSION: MILD CHRONIC CHANGES OF ATROPHY AND MICROVASCULAR ISCHEMIA. PARANASAL SINUS DISEASE. NO ACUTE INTRACRANIAL PROCESS. EVIDENCE OF ACUTE STROKE: NO. Abdomen/Pelvis CT 12/04/17 00:00 IMPRESSION: 1. There is evidence of multiple bilateral pulmonary masses consistent with metastatic disease. Bibasilar infiltrate and effusions. Fatty infiltration liver. Status post cholecystectomy. Pathological fracture of right hip and acetabulum. Expansile lytic lesion left ilium at the SI joint. Possible lytic change left ischium. These findings are compatible with changes of metastatic carcinoma of the lung by history Assessment & Plan - Diagnosis (1) Right acetabular fracture Qualifiers: Encounter type: subsequent encounter Sublocation of acetabulum: medial wall Fracture type: closed Fracture alignment: displaced Is this a current diagnosis for this admission?: Yes Plan: 77-year-old white female with right hip and acetabular protrusio fracture. Patient resting quietly this morning was much more comfortable overnight per nursing staff with addition of new analgesic medications. Per evaluation by Dr. Prescott yesterday patient has voiced her interest in proceeding with surgical repair of acetabular fracture. Therefore this procedure will likely take place later this week. Exact plan for date and time of surgery is undetermined at this time.
--- NOTE | 2017-12-05 08:09 | PDOC PROGRESS REPORT ---
Subjective Progress Note for:: 12/05/17 Subjective:: Pain better today, Dr. Prescott d/w pt and family and surgery is planned Reason For Visit: RIGHT HIP FRACTURE Physical Exam Vital Signs: Temp Pulse Resp BP Pulse Ox 98.7 F 81 16 101/46 L 92 12/05/17 00:00 12/05/17 00:00 12/05/17 00:00 12/05/17 00:00 12/05/17 00:00 Intake & Output 12/04/17 12/05/17 12/06/17 06:59 06:59 06:59 Intake Total 1970 1620 Output Total 1650 1200 Balance 320 420 Weight 66.1 kg 66.1 kg General appearance: PRESENT: no acute distress, well-developed, well-nourished Head exam: PRESENT: atraumatic, normocephalic Eye exam: PRESENT: conjunctiva pink, EOMI, PERRLA. ABSENT: scleral icterus Ear exam: PRESENT: normal external ear exam Mouth exam: PRESENT: moist, tongue midline Neck exam: ABSENT: carotid bruit, JVD, lymphadenopathy, thyromegaly Respiratory exam: PRESENT: clear to auscultation mehdi. ABSENT: rales, rhonchi, wheezes Cardiovascular exam: PRESENT: RRR. ABSENT: diastolic murmur, rubs, systolic murmur Pulses: PRESENT: normal dorsalis pedis pul Vascular exam: PRESENT: normal capillary refill GI/Abdominal exam: PRESENT: normal bowel sounds, soft. ABSENT: distended, guarding, mass, organolmegaly, rebound, tenderness Rectal exam: PRESENT: deferred Extremities exam: PRESENT: full ROM. ABSENT: calf tenderness, clubbing, pedal edema Neurological exam: PRESENT: alert, awake, oriented to person, oriented to place , oriented to time, oriented to situation, CN II-XII grossly intact. ABSENT: motor sensory deficit Psychiatric exam: PRESENT: appropriate affect, normal mood. ABSENT: homicidal ideation, suicidal ideation Skin exam: PRESENT: dry, intact, warm. ABSENT: cyanosis, rash Results Laboratory Results: 12/04/17 10:03 12/04/17 10:03 Creatinine 0.61 Est GFR ( Amer) > 60 Est GFR (Non-Af Amer) > 60 Impressions: Hip/Pelvis X-Ray 12/01/17 17:53 IMPRESSION: Medial wall right acetabular fracture with protrusion of the femoral head into the bony pelvis Chest CT 12/01/17 19:16 IMPRESSION: ALTHOUGH THERE HAS BEEN INTERVAL IMPROVEMENT OF MEDIASTINAL AND HILAR LYMPHADENOPATHY WELL DOMINANT MASS RIGHT SUPRAHILAR LUNG AND RIGHT UPPER LOBE THERE HAS BEEN INTERVAL DEVELOPMENT OF NEW WILL ENLARGING PULMONARY NODULES/MASSES COMPATIBLE WITH OVERALL PROGRESSION OF METASTATIC LUNG CANCER. NEW BILATERAL LOWER LOBE AIRSPACE DISEASE SUSPICIOUS FOR PNEUMONIA. CORRELATE WITH FEVER/ELEVATED WHITE BLOOD CELL COUNT. Head CT 12/01/17 19:16 IMPRESSION: MILD CHRONIC CHANGES OF ATROPHY AND MICROVASCULAR ISCHEMIA. PARANASAL SINUS DISEASE. NO ACUTE INTRACRANIAL PROCESS. EVIDENCE OF ACUTE STROKE: NO. Abdomen/Pelvis CT 12/04/17 00:00 IMPRESSION: 1. There is evidence of multiple bilateral pulmonary masses consistent with metastatic disease. Bibasilar infiltrate and effusions. Fatty infiltration liver. Status post cholecystectomy. Pathological fracture of right hip and acetabulum. Expansile lytic lesion left ilium at the SI joint. Possible lytic change left ischium. These findings are compatible with changes of metastatic carcinoma of the lung by history Assessment & Plan - Diagnosis (1) Right acetabular fracture Qualifiers: Encounter type: subsequent encounter Sublocation of acetabulum: medial wall Fracture type: closed Fracture alignment: displaced Is this a current diagnosis for this admission?: Yes Plan: Surgery planned thus far, hopefully soon. 2nd to pathologic fx from lung ca mets (2) Lung cancer metastatic to bone Is this a current diagnosis for this admission?: Yes Plan: Con't current pain control - Time Time Spent with patient: 15-24 minutes
[2017-12-05] MEDS: HYDROCORTISONE 0.5% CREAM 28.35 GM TP SCH ×2 (10:22→18:15)
[2017-12-05] MEDS: VANCOMYCIN HCL 500 MG in NORMAL SALINE 100 ML IV SCH ×2 (10:23→23:14)
--- NOTE | 2017-12-05 11:24 | PDOC PROGRESS REPORT ---
Subjective Progress Note for:: 12/05/17 Subjective:: The patient is a 77-year-old female with a past medical history of stage IV lung cancer. She presented to the emergency room with increased right hip pain and bilateral lower extremity swelling. The patient had become unable to ambulate. She was found to have an acetabular fracture. For palliative purposes she is going to go to the operating room tomorrow. Dr. hart oncologist is seen the patient during this hospitalization and she is not a candidate for further treatment. The plan for discharge is an inpatient hospice unit. I spoke at length to the patient's daughter at the bedside and all of her questions were answered as best I could. The patient herself is resting in the bed. She states her pain is a little improved. She is feeling quite poorly and was unable to give me a full review of systems. Reason For Visit: RIGHT HIP FRACTURE Physical Exam Vital Signs: Temp Pulse Resp BP Pulse Ox 98.7 F 81 16 101/46 L 92 12/05/17 00:00 12/05/17 00:00 12/05/17 00:00 12/05/17 00:00 12/05/17 00:00 Intake & Output 12/04/17 12/05/17 12/06/17 06:59 06:59 06:59 Intake Total 1970 1620 Output Total 1650 1200 Balance 320 420 Weight 66.1 kg 66.1 kg General appearance: PRESENT: thin, other - She appears to be a little uncomfortable but in no acute distress Head exam: PRESENT: atraumatic, other - Bilateral temporal wasting Mouth exam: PRESENT: moist, tongue midline Respiratory exam: PRESENT: rhonchi, other - Poor effort. She seems to be decreased in the lower bases. ABSENT: wheezes Cardiovascular exam: PRESENT: RRR. ABSENT: diastolic murmur, rubs, systolic murmur GI/Abdominal exam: PRESENT: normal bowel sounds, soft. ABSENT: distended, guarding, mass, organolmegaly, rebound, tenderness Rectal exam: PRESENT: deferred Extremities exam: PRESENT: other - She has some mild swelling bilateral Musculoskeletal exam: ABSENT: ambulatory Neurological exam: PRESENT: alert, altered, awake, oriented to person, oriented to place, oriented to time Psychiatric exam: PRESENT: appropriate affect, normal mood. ABSENT: homicidal ideation, suicidal ideation Skin exam: PRESENT: dry, intact, warm. ABSENT: cyanosis, rash Results Laboratory Results: 12/04/17 10:03 Impressions: Hip/Pelvis X-Ray 12/01/17 17:53 IMPRESSION: Medial wall right acetabular fracture with protrusion of the femoral head into the bony pelvis Chest CT 12/01/17 19:16 IMPRESSION: ALTHOUGH THERE HAS BEEN INTERVAL IMPROVEMENT OF MEDIASTINAL AND HILAR LYMPHADENOPATHY WELL DOMINANT MASS RIGHT SUPRAHILAR LUNG AND RIGHT UPPER LOBE THERE HAS BEEN INTERVAL DEVELOPMENT OF NEW WILL ENLARGING PULMONARY NODULES/MASSES COMPATIBLE WITH OVERALL PROGRESSION OF METASTATIC LUNG CANCER. NEW BILATERAL LOWER LOBE AIRSPACE DISEASE SUSPICIOUS FOR PNEUMONIA. CORRELATE WITH FEVER/ELEVATED WHITE BLOOD CELL COUNT. Head CT 12/01/17 19:16 IMPRESSION: MILD CHRONIC CHANGES OF ATROPHY AND MICROVASCULAR ISCHEMIA. PARANASAL SINUS DISEASE. NO ACUTE INTRACRANIAL PROCESS. EVIDENCE OF ACUTE STROKE: NO. Abdomen/Pelvis CT 12/04/17 00:00 IMPRESSION: 1. There is evidence of multiple bilateral pulmonary masses consistent with metastatic disease. Bibasilar infiltrate and effusions. Fatty infiltration liver. Status post cholecystectomy. Pathological fracture of right hip and acetabulum. Expansile lytic lesion left ilium at the SI joint. Possible lytic change left ischium. These findings are compatible with changes of metastatic carcinoma of the lung by history Assessment & Plan - Diagnosis (1) Right acetabular fracture Qualifiers: Encounter type: subsequent encounter Sublocation of acetabulum: medial wall Fracture type: closed Fracture alignment: displaced Is this a current diagnosis for this admission?: Yes Plan: I believe the plan is for surgical repair tomorrow. (2) Lung cancer metastatic to bone Is this a current diagnosis for this admission?: Yes Plan: Unfortunately she is not a candidate for further chemoradiation. She will be transferred to an inpatient hospice facility at discharge. The discharge planners are working on this. (3) UTI (urinary tract infection) Qualifiers: Urinary tract infection type: acute cystitis Hematuria presence: without hematuria Qualified Code(s): N30.00 - Acute cystitis without hematuria Is this a current diagnosis for this admission?: Yes Plan: She currently is receiving IV Zosyn which covers both the E. coli and Klebsiella in her urine. (4) Pneumonia Qualifiers: Pneumonia type: due to unspecified organism Laterality: bilateral Lung location: lower lobe of lung Qualified Code(s): J18.9 - Pneumonia, unspecified organism Is this a current diagnosis for this admission?: Yes Plan: Concerns for gram negatives. She will continue IV Zosyn. (5) Intractable pain Is this a current diagnosis for this admission?: Yes Plan: Continue with current pain regimen. She seems to be a little more comfortable today. (6) Hyponatremia Is this a current diagnosis for this admission?: Yes Plan: She has not had labs checked in many days. We are basically pursuing a palliative approach. However the daughter wants us to get her tuned up as best we can here in the hospital. I will check labs in the morning just 1 more time to make sure this has not significantly worsened. - Time Time Spent with patient: 25-34 minutes - Inpatient Certification Medical Necessity: Other - Inpatient hospitalization remains necessary. The patient has intractable pain due to an acetabular fracture. For palliative purposes she is going to go to the operating room tomorrow for repair. Ultimately she will be dispositioned to an inpatient hospice facility.
[2017-12-06] MEDS: OXYCODONE HCL IR 5 MG TABLET PO PRN ×5 (00:44→23:38)
[2017-12-06] MEDS: PIPERACILLIN SODIUM/TAZOBACTAM 3.375 GM in NORMAL SALINE 100 ML IV SCH ×2 (03:21→09:13)
[2017-12-06 05:31] LABS: ABSOLUTE BASOPHILS # (AUTO) 0.1 10^3/uL (0.0-0.2); ABSOLUTE EOSINOPHILS # (AUTO) 0.3 10^3/uL (0.0-0.6); ABSOLUTE LYMPHOCYTES (AUTO) 2.1 10^3/uL (0.5-4.7); ABSOLUTE MONOCYTES (AUTO) 0.8 10^3/uL (0.1-1.4); ABSOLUTE NEUT (AUTO) 6.6 10^3/uL (1.7-8.2); BASOPHILS % (AUTO) 1.3 % (0-2); EOSINOPHILS % (AUTO) 2.9 % (0-6); HEMATOCRIT 34.2 % (36.0-47.0); HEMOGLOBIN 11.1 g/dL (12.0-15.5); LYMPHOCYTES % (AUTO) 21.3 % (13-45); MEAN CORPUSCULAR HEMOGLOBIN 26.4 pg (27.0-33.4); MEAN CORPUSCULAR HGB CONC 32.4 g/dL (32.0-36.0); MEAN CORPUSCULAR VOLUME 82 fl (80-97); MONOCYTES % (AUTO) 8.4 % (3-13); PLATELET COUNT 295 10^3/uL (150-450); RED BLOOD COUNT 4.19 10^6/uL (3.72-5.28); RED CELL DISTRIBUTION WIDTH 19.7 % (11.5-14.0); SEGMENTED NEUTROPHILS % (AUTO) 66.1 % (42-78); TOTAL CELLS COUNTED % (AUTO) 100 %
[2017-12-06] MEDS: HEPARIN SOD (PORCINE) 5,000 UNIT/ML 1 ML SYRINGE SUBCUT SCH ×3 (05:35→21:19)
[2017-12-06 06:05] LABS: ANION GAP 5 (5-19); BLOOD UREA NITROGEN 8 mg/dL (7-20); CARBON DIOXIDE 30 mmol/L (22-30); CHLORIDE 97 mmol/L (98-107); GLUCOSE 83 mg/dL (75-110); SODIUM 132.2 mmol/L (137-145)
[2017-12-06 06:15] LABS: CALCIUM 6.6 mg/dL (8.4-10.2)
[2017-12-06 06:16] LABS: POTASSIUM 2.4 mmol/L (3.6-5.0)
[2017-12-06] MEDS ORDERED: CALCIUM GLUCONATE 2,222 MG in DEXTROSE 5%-WATER 100 ML IV ONE ×2 (06:30→15:00)
[2017-12-06] MEDS ORDERED: POTASSIUM CHLORIDE 10 MEQ TABLET.SA PO ONE (07:00)
[2017-12-06 07:07] LABS: ALBUMIN 1.7 g/dL (3.5-5.0)
--- NOTE | 2017-12-06 07:50 | PDOC PROGRESS REPORT ---
Subjective Progress Note for:: 12/06/17 Subjective:: 77-year-old white female with right acetabular protrusio fracture. Patient alert and awake this morning lying in hospital bed with bilateral lower extremities in flexion at the knee elevated on 2 pillows. Patient reports she is comfortable at rest however with initiation of movement notes increased pain in the right lower extremity. She notes that she was comfortable overnight. Reason For Visit: RIGHT HIP FRACTURE Physical Exam Vital Signs: Temp Pulse Resp BP Pulse Ox 36.4 C 102 H 16 85/45 L 92 12/05/17 23:35 12/05/17 23:35 12/05/17 23:35 12/05/17 23:35 12/05/17 23:35 Intake & Output 12/05/17 12/06/17 12/07/17 06:59 06:59 06:59 Intake Total 1620 876 Output Total 1200 900 Balance 420 -24 Weight 66.1 kg 65 kg General appearance: PRESENT: no acute distress, well-developed, well-nourished Head exam: PRESENT: atraumatic, normocephalic Respiratory exam: PRESENT: unlabored Pulses: PRESENT: normal dorsalis pedis pul, +2 pedal pulses bilateral Vascular exam: PRESENT: normal capillary refill Additional comments: Patient lying recumbent in hospital bed with legs at flexion at the knee and elevated on multiple pillows. There is mild edema present at the hip of the right lower extremity. She is nontender to palpation. She is tender with initiation of movement. She has brisk capillary refill to toes on bilateral lower extremities sensory functions intact distal neurovascular exam intact. Additional comments: Patient is nonambulatory due to the nature of her fracture. She also notes increased pain with any sort of movement. Neurological exam: PRESENT: alert, awake, oriented to person, oriented to place , oriented to time, oriented to situation, CN II-XII grossly intact. ABSENT: motor sensory deficit Psychiatric exam: PRESENT: appropriate affect, normal mood. ABSENT: homicidal ideation, suicidal ideation Skin exam: PRESENT: dry, intact, warm. ABSENT: cyanosis, rash Results Laboratory Results: 12/06/17 05:08 12/06/17 05:08 12/06/17 12/06/17 12/06/17 05:08 05:08 05:08 WBC 10.0 RBC 4.19 Hgb 11.1 L Hct 34.2 L MCV 82 MCH 26.4 L MCHC 32.4 RDW 19.7 H Plt Count 295 Seg Neutrophils % 66.1 Lymphocytes % 21.3 Monocytes % 8.4 Eosinophils % 2.9 Basophils % 1.3 Absolute Neutrophils 6.6 Absolute Lymphocytes 2.1 Absolute Monocytes 0.8 Absolute Eosinophils 0.3 Absolute Basophils 0.1 Sodium 132.2 L Potassium 2.4 L* Chloride 97 L Carbon Dioxide 30 Anion Gap 5 BUN 8 Creatinine 0.55 Est GFR ( Amer) > 60 Est GFR (Non-Af Amer) > 60 Glucose 83 Calcium 6.6 L* Magnesium 1.9 Albumin 1.7 L Impressions: Hip/Pelvis X-Ray 12/01/17 17:53 IMPRESSION: Medial wall right acetabular fracture with protrusion of the femoral head into the bony pelvis Chest CT 12/01/17 19:16 IMPRESSION: ALTHOUGH THERE HAS BEEN INTERVAL IMPROVEMENT OF MEDIASTINAL AND HILAR LYMPHADENOPATHY WELL DOMINANT MASS RIGHT SUPRAHILAR LUNG AND RIGHT UPPER LOBE THERE HAS BEEN INTERVAL DEVELOPMENT OF NEW WILL ENLARGING PULMONARY NODULES/MASSES COMPATIBLE WITH OVERALL PROGRESSION OF METASTATIC LUNG CANCER. NEW BILATERAL LOWER LOBE AIRSPACE DISEASE SUSPICIOUS FOR PNEUMONIA. CORRELATE WITH FEVER/ELEVATED WHITE BLOOD CELL COUNT. Head CT 12/01/17 19:16 IMPRESSION: MILD CHRONIC CHANGES OF ATROPHY AND MICROVASCULAR ISCHEMIA. PARANASAL SINUS DISEASE. NO ACUTE INTRACRANIAL PROCESS. EVIDENCE OF ACUTE STROKE: NO. Abdomen/Pelvis CT 12/04/17 00:00 IMPRESSION: 1. There is evidence of multiple bilateral pulmonary masses consistent with metastatic disease. Bibasilar infiltrate and effusions. Fatty infiltration liver. Status post cholecystectomy. Pathological fracture of right hip and acetabulum. Expansile lytic lesion left ilium at the SI joint. Possible lytic change left ischium. These findings are compatible with changes of metastatic carcinoma of the lung by history Assessment & Plan - Diagnosis (1) Right acetabular fracture Qualifiers: Encounter type: subsequent encounter Sublocation of acetabulum: medial wall Fracture type: closed Fracture alignment: displaced Is this a current diagnosis for this admission?: Yes Plan: 77-year-old white female with right acetabular protrusio fracture. Patient remains comfortable with scheduled analgesic medication although notes severe increased pain with initiation of movement. Tentative plan at this point is to proceed with surgery to repair the fracture by Dr. Prescott. Due to patient's abnormal lab values this morning including hypokalemia and hypocalcemia this will likely not happen today. She is being followed by hospitalist service to resolve these issues. Once they are resolved and clearance is obtained for surgery Dr. Prescott will likely then proceed with surgery. (2) Hypokalemia Is this a current diagnosis for this admission?: Yes Plan: Most recent potassium values are below normal values. This is being monitored by hospitalist service. This may however prevent clearances by anesthesia for surgery until lab values normalized.
[2017-12-06] MEDS ORDERED: POTASSIUM CHLORIDE 20 MEQ/15 ML UDCUP PO ONE (08:00)
[2017-12-06] MEDS: POTASSI CL 20 MEQ/50 ML RIDER 20 MEQ/50 ML RTUPB IV SCH ×3 (08:04→12:38)
--- NOTE | 2017-12-06 08:09 | PDOC PROGRESS REPORT ---
Subjective Progress Note for:: 12/06/17 Subjective:: Thus far pain control is adequate, discussed case w/ Dr. Landry this am, procedure not possible today b/c of several issues, one is electrolyte abnormalities but also hardware is ordered but not yet in. Probably won't be in until monday or monday per dr landry. Otherwise plan is to proceed w/ hip replacement when hardware arrives, and pt ready medically. Reason For Visit: RIGHT HIP FRACTURE Physical Exam Vital Signs: Temp Pulse Resp BP Pulse Ox 97.6 F 102 H 16 85/45 L 92 12/05/17 23:35 12/05/17 23:35 12/05/17 23:35 12/05/17 23:35 12/05/17 23:35 Intake & Output 12/05/17 12/06/17 12/07/17 06:59 06:59 06:59 Intake Total 1620 876 Output Total 1200 900 Balance 420 -24 Weight 66.1 kg 65 kg General appearance: PRESENT: no acute distress, well-developed, well-nourished Head exam: PRESENT: atraumatic, normocephalic Eye exam: PRESENT: conjunctiva pink, EOMI, PERRLA. ABSENT: scleral icterus Ear exam: PRESENT: normal external ear exam Mouth exam: PRESENT: moist, tongue midline Neck exam: ABSENT: carotid bruit, JVD, lymphadenopathy, thyromegaly Respiratory exam: PRESENT: clear to auscultation mehdi. ABSENT: rales, rhonchi, wheezes Cardiovascular exam: PRESENT: RRR. ABSENT: diastolic murmur, rubs, systolic murmur Pulses: PRESENT: normal dorsalis pedis pul Vascular exam: PRESENT: normal capillary refill GI/Abdominal exam: PRESENT: normal bowel sounds, soft. ABSENT: distended, guarding, mass, organolmegaly, rebound, tenderness Rectal exam: PRESENT: deferred Extremities exam: PRESENT: full ROM. ABSENT: calf tenderness, clubbing, pedal edema Neurological exam: PRESENT: alert, awake, oriented to person, oriented to place , oriented to time, oriented to situation, CN II-XII grossly intact. ABSENT: motor sensory deficit Psychiatric exam: PRESENT: appropriate affect, normal mood. ABSENT: homicidal ideation, suicidal ideation Skin exam: PRESENT: dry, intact, warm. ABSENT: cyanosis, rash Results Laboratory Results: 12/06/17 05:08 12/06/17 05:08 12/06/17 12/06/17 12/06/17 05:08 05:08 05:08 WBC 10.0 RBC 4.19 Hgb 11.1 L Hct 34.2 L MCV 82 MCH 26.4 L MCHC 32.4 RDW 19.7 H Plt Count 295 Seg Neutrophils % 66.1 Lymphocytes % 21.3 Monocytes % 8.4 Eosinophils % 2.9 Basophils % 1.3 Absolute Neutrophils 6.6 Absolute Lymphocytes 2.1 Absolute Monocytes 0.8 Absolute Eosinophils 0.3 Absolute Basophils 0.1 Sodium 132.2 L Potassium 2.4 L* Chloride 97 L Carbon Dioxide 30 Anion Gap 5 BUN 8 Creatinine 0.55 Est GFR ( Amer) > 60 Est GFR (Non-Af Amer) > 60 Glucose 83 Calcium 6.6 L* Magnesium 1.9 Albumin 1.7 L Impressions: Hip/Pelvis X-Ray 12/01/17 17:53 IMPRESSION: Medial wall right acetabular fracture with protrusion of the femoral head into the bony pelvis Chest CT 12/01/17 19:16 IMPRESSION: ALTHOUGH THERE HAS BEEN INTERVAL IMPROVEMENT OF MEDIASTINAL AND HILAR LYMPHADENOPATHY WELL DOMINANT MASS RIGHT SUPRAHILAR LUNG AND RIGHT UPPER LOBE THERE HAS BEEN INTERVAL DEVELOPMENT OF NEW WILL ENLARGING PULMONARY NODULES/MASSES COMPATIBLE WITH OVERALL PROGRESSION OF METASTATIC LUNG CANCER. NEW BILATERAL LOWER LOBE AIRSPACE DISEASE SUSPICIOUS FOR PNEUMONIA. CORRELATE WITH FEVER/ELEVATED WHITE BLOOD CELL COUNT. Head CT 12/01/17 19:16 IMPRESSION: MILD CHRONIC CHANGES OF ATROPHY AND MICROVASCULAR ISCHEMIA. PARANASAL SINUS DISEASE. NO ACUTE INTRACRANIAL PROCESS. EVIDENCE OF ACUTE STROKE: NO. Abdomen/Pelvis CT 12/04/17 00:00 IMPRESSION: 1. There is evidence of multiple bilateral pulmonary masses consistent with metastatic disease. Bibasilar infiltrate and effusions. Fatty infiltration liver. Status post cholecystectomy. Pathological fracture of right hip and acetabulum. Expansile lytic lesion left ilium at the SI joint. Possible lytic change left ischium. These findings are compatible with changes of metastatic carcinoma of the lung by history Assessment & Plan - Diagnosis (1) Right acetabular fracture Qualifiers: Encounter type: subsequent encounter Sublocation of acetabulum: medial wall Fracture type: closed Fracture alignment: displaced Is this a current diagnosis for this admission?: Yes Plan: Plan for surgery as above, today spent >45 min in discussion w/ family and coordination of care (2) Lung cancer metastatic to bone Is this a current diagnosis for this admission?: Yes Plan: no further rx planned, con't current pain control
[2017-12-06] MEDS: HYDROCORTISONE 0.5% CREAM 28.35 GM TP SCH ×2 (09:14→17:12)
[2017-12-06] MEDS: VANCOMYCIN HCL 500 MG in NORMAL SALINE 100 ML IV SCH (10:14)
[2017-12-06] MEDS: LORATADINE 10 MG TABLET PO SCH (10:42)
[2017-12-06] MEDS: HYDROMORPHONE HCL INJ/PF 2 MG/ML AMPULE IV PRN ×3 (11:11→21:19)
[2017-12-06] MEDS ORDERED: LIDOCAINE 5% (700 MG) TRANSDERMAL ADH..PATCH TP ONE (11:30)
--- NOTE | 2017-12-06 14:36 | PDOC PROGRESS REPORT ---
Subjective Progress Note for:: 12/06/17 Subjective:: The patient is a 77 year old female with PMH significant for Lung CA with bone metastasis, COPD, and arthritis who was admitted on 12/01/27 with intracable pain secondary to a right acetabular fracture and UTI. The patient is seen on morning rounds. She is found resting in bed comfortably on supplemental oxygen at 2 lpm. The patient states that her pain is moderately well controlled but feels that the medication wears off too soon. Otherwise, she has no complaints. She denies fever/chills, chest pain, palpitations, dyspnea, cough, abd pain, nausea/vomiting, diarrhea and constipation. Reason For Visit: RIGHT HIP FRACTURE Physical Exam Vital Signs: Temp Pulse Resp BP Pulse Ox 97.5 F 74 14 92/43 L 90 L 12/06/17 07:33 12/06/17 07:33 12/06/17 07:33 12/06/17 07:33 12/06/17 07:33 Intake & Output 12/05/17 12/06/17 12/07/17 06:59 06:59 06:59 Intake Total 1620 876 Output Total 1200 900 Balance 420 -24 Weight 66.1 kg 65 kg General appearance: PRESENT: no acute distress, well-developed, well-nourished, other - fatigued Head exam: PRESENT: atraumatic, normocephalic Eye exam: PRESENT: conjunctiva pink, EOMI, PERRLA. ABSENT: scleral icterus Ear exam: PRESENT: normal external ear exam Mouth exam: PRESENT: moist, tongue midline Neck exam: ABSENT: carotid bruit, JVD, lymphadenopathy, thyromegaly Respiratory exam: PRESENT: clear to auscultation mehdi, decreased breath sounds - bibasilar, symmetrical, unlabored. ABSENT: rales, rhonchi, wheezes Cardiovascular exam: PRESENT: RRR, +S1, +S2. ABSENT: diastolic murmur, rubs, systolic murmur Pulses: PRESENT: normal dorsalis pedis pul Vascular exam: PRESENT: normal capillary refill GI/Abdominal exam: PRESENT: normal bowel sounds, soft. ABSENT: distended, guarding, mass, organolmegaly, rebound, tenderness Rectal exam: PRESENT: deferred Extremities exam: ABSENT: calf tenderness, clubbing, full ROM - Secondary to pain; Rt hip, pedal edema Neurological exam: PRESENT: alert, awake, oriented to person, oriented to place , oriented to time, oriented to situation, CN II-XII grossly intact. ABSENT: motor sensory deficit Psychiatric exam: PRESENT: appropriate affect, normal mood. ABSENT: homicidal ideation, suicidal ideation Skin exam: PRESENT: dry, intact, warm. ABSENT: cyanosis, rash Results Laboratory Results: 12/06/17 05:08 12/06/17 05:08 12/06/17 12/06/17 12/06/17 05:08 05:08 05:08 WBC 10.0 RBC 4.19 Hgb 11.1 L Hct 34.2 L MCV 82 MCH 26.4 L MCHC 32.4 RDW 19.7 H Plt Count 295 Seg Neutrophils % 66.1 Lymphocytes % 21.3 Monocytes % 8.4 Eosinophils % 2.9 Basophils % 1.3 Absolute Neutrophils 6.6 Absolute Lymphocytes 2.1 Absolute Monocytes 0.8 Absolute Eosinophils 0.3 Absolute Basophils 0.1 Sodium 132.2 L Potassium 2.4 L* Chloride 97 L Carbon Dioxide 30 Anion Gap 5 BUN 8 Creatinine 0.55 Est GFR ( Amer) > 60 Est GFR (Non-Af Amer) > 60 Glucose 83 Calcium 6.6 L* Magnesium 1.9 Albumin 1.7 L Impressions: Hip/Pelvis X-Ray 12/01/17 17:53 IMPRESSION: Medial wall right acetabular fracture with protrusion of the femoral head into the bony pelvis Chest CT 12/01/17 19:16 IMPRESSION: ALTHOUGH THERE HAS BEEN INTERVAL IMPROVEMENT OF MEDIASTINAL AND HILAR LYMPHADENOPATHY WELL DOMINANT MASS RIGHT SUPRAHILAR LUNG AND RIGHT UPPER LOBE THERE HAS BEEN INTERVAL DEVELOPMENT OF NEW WILL ENLARGING PULMONARY NODULES/MASSES COMPATIBLE WITH OVERALL PROGRESSION OF METASTATIC LUNG CANCER. NEW BILATERAL LOWER LOBE AIRSPACE DISEASE SUSPICIOUS FOR PNEUMONIA. CORRELATE WITH FEVER/ELEVATED WHITE BLOOD CELL COUNT. Head CT 12/01/17 19:16 IMPRESSION: MILD CHRONIC CHANGES OF ATROPHY AND MICROVASCULAR ISCHEMIA. PARANASAL SINUS DISEASE. NO ACUTE INTRACRANIAL PROCESS. EVIDENCE OF ACUTE STROKE: NO. Abdomen/Pelvis CT 12/04/17 00:00 IMPRESSION: 1. There is evidence of multiple bilateral pulmonary masses consistent with metastatic disease. Bibasilar infiltrate and effusions. Fatty infiltration liver. Status post cholecystectomy. Pathological fracture of right hip and acetabulum. Expansile lytic lesion left ilium at the SI joint. Possible lytic change left ischium. These findings are compatible with changes of metastatic carcinoma of the lung by history Assessment & Plan - Diagnosis (1) Right acetabular fracture Qualifiers: Encounter type: subsequent encounter Sublocation of acetabulum: medial wall Fracture type: closed Fracture alignment: displaced Is this a current diagnosis for this admission?: Yes Plan: Primary plan per orthopedics; plan for surgery once electrolytes are corrected and hardware has been delivered. Anticipate surgery within the next few days. (2) UTI (urinary tract infection) Qualifiers: Urinary tract infection type: acute cystitis Hematuria presence: without hematuria Qualified Code(s): N30.00 - Acute cystitis without hematuria Is this a current diagnosis for this admission?: Yes Plan: Urine culture: E. coli, Klebsiella Blood culture: No growth at 4 days The patient was initially placed on Zosyn and vancomycin. The patient remains afebrile and leukocytosis has resolved. We will transition to p.o. ciprofloxacin today. (3) Hypocalcemia Is this a current diagnosis for this admission?: Yes Plan: Corrected calcium is 8.44. Patient has been ordered calcium gluconate. We will continue to monitor. (4) Hypokalemia Is this a current diagnosis for this admission?: Yes Plan: We will replace. We will monitor closely and continue to replace as needed. (5) Hyponatremia Is this a current diagnosis for this admission?: Yes Plan: Trending upward. Will continue to monitor. (6) Intractable pain Is this a current diagnosis for this admission?: Yes Plan: Continue Fentanyl 50 mcg patch, oxycodone 15 mg every 3 hours as needed, and IV dilaudid for break through pain. Will add lidocain patches. Encourage nonpharmacological interventions: position changes/pillow support, heat pad, etc. (7) Lung cancer metastatic to bone Is this a current diagnosis for this admission?: Yes Plan: Unfortunately she is not a candidate for further chemoradiation. She will be transferred to an inpatient hospice facility at discharge. Appreciate discharge planning's assistance in making arrangements. (8) Pneumonia Qualifiers: Pneumonia type: due to unspecified organism Laterality: bilateral Lung location: lower lobe of lung Qualified Code(s): J18.9 - Pneumonia, unspecified organism Is this a current diagnosis for this admission?: Yes Plan: I am less concerned about pneumonia as atelectasis. WBC are normal and the patient is afebrile. She denies dyspnea, orthopnea, and cough. Blood cultures: No growth at 4 days Pt was empirically placed on Vancomycin and Zosyn on admission; she has been transitioned to Cipro for e. coli/klebsiella in urine. Will encourage turn/cough/deep breath and incentive spirometry hourly while awake. - Time Time Spent with patient: 25-34 minutes Anticipated discharge: Hospice Within: Other - Once cleared by Ortho; planned hip replacement - Inpatient Certification Based on my medical assessment, after consideration of the patient's comorbidities, presenting symptoms, or acuity I expect that the services needed warrant INPATIENT care.: Yes I certify that my determination is in accordance with my understanding of Medicare's requirements for reasonable and necessary INPATIENT services [42 CFR 412.3e].: Yes Medical Necessity: Need for Surgery
[2017-12-06] MEDS ORDERED: NORMAL SALINE IV ONE (15:00)
[2017-12-06] MEDS ORDERED: CALCIUM GLUCONATE IV ONE (15:00)
[2017-12-06] MEDS: CIPROFLOXACIN HCL 500 MG TABLET PO SCH (21:19)
--- NOTE | 2017-12-06 23:32 | Progress Note ---
Provider Note Provider Note: Palliative Care follow up visit. 12/06/17 10:45-11;10 Palliative Care follow up visit with patient admitted with intractable pain in right hip. Today Mrs. Wilson is awake and resting in bed, looking very frail. SHe said she is awaiting hip replacement surgery which may not be for several more days due to problems getting the replacement hardware. She is hoping this surgery will help relieve her pain which she reports to be constant in spite of her pain meds. Mrs. Wilson is unable to bear weight on her right hip and is having increased pain, even while resting in bed. She says she is eating well but she has said that through the last month and he albumin level is noted to be 1.7 today. She is very weak, but alert and oriented at present. Breath sounds are diminished due to positioning. Heart rate regular. Les noted rash on legs than when I saw her at home last week. We talked about her daughters care and how difficult it is for her to not be able to care for Maged as she has all of her life. I reminded her that her daughter Alexandrea has found an [facility] for Maged that she thinks will be good and is close to [facility]. Mrs. Wilson does not want to talk about hospice as she is awaiting surgery and probably chemo to follow. She is tired and wants to sleep. Daughter is not present at hospital at the time of my visit. Will follow for emotional support. No recommendations for changes meds. Appreciate good care patient is getting at hospital.
[2017-12-07] MEDS: HYDROMORPHONE HCL INJ/PF 2 MG/ML AMPULE IV PRN ×5 (00:40→23:30)
[2017-12-07] MEDS: OXYCODONE HCL IR 5 MG TABLET PO PRN ×4 (02:41→21:34)
[2017-12-07 05:23] LABS: ANION GAP 8 (5-19); BLOOD UREA NITROGEN 8 mg/dL (7-20); CALCIUM 7.4 mg/dL (8.4-10.2); CARBON DIOXIDE 27 mmol/L (22-30); CHLORIDE 97 mmol/L (98-107); GLUCOSE 109 mg/dL (75-110); SODIUM 132.1 mmol/L (137-145)
[2017-12-07 05:47] LABS: POTASSIUM 3.5 mmol/L (3.6-5.0)
--- NOTE | 2017-12-07 06:19 | PDOC PROGRESS REPORT ---
Subjective Progress Note for:: 12/07/17 Reason For Visit: RIGHT HIP FRACTURE Pathologic right acetabular fracture with protrusio Physical Exam Vital Signs: Temp Pulse Resp BP Pulse Ox 36.8 C 111 H 18 118/50 L 98 12/06/17 23:09 12/06/17 23:09 12/06/17 23:09 12/06/17 23:09 12/07/17 00:18 Intake & Output 12/05/17 12/06/17 12/07/17 06:59 06:59 06:59 Intake Total 7345 510 9455 Output Total 1200 900 575 Balance 420 -24 647 Weight 66.1 kg 65 kg 70.4 kg General appearance: PRESENT: mild distress Head exam: PRESENT: normocephalic Respiratory exam: PRESENT: unlabored Cardiovascular exam: PRESENT: RRR Psychiatric exam: PRESENT: appropriate affect, normal mood. ABSENT: homicidal ideation, suicidal ideation Skin exam: PRESENT: dry, intact, warm. ABSENT: cyanosis, rash Results Laboratory Results: 12/06/17 05:08 12/07/17 04:23 12/06/17 12/06/17 12/07/17 05:08 05:08 04:23 Sodium 132.2 L 132.1 L Potassium 2.4 L* 3.5 L D Chloride 97 L 97 L Carbon Dioxide 30 27 Anion Gap 5 8 BUN 8 8 Creatinine 0.55 0.51 L Est GFR ( Amer) > 60 > 60 Est GFR (Non-Af Amer) > 60 > 60 Glucose 83 109 Calcium 6.6 L* 7.4 L Magnesium 1.9 Albumin 1.7 L 12/02/17 01:58 Blood Blood Culture - Final NO GROWTH IN 5 DAYS 12/02/17 01:11 Blood Blood Culture - Final NO GROWTH IN 5 DAYS Impressions: Hip/Pelvis X-Ray 12/01/17 17:53 IMPRESSION: Medial wall right acetabular fracture with protrusion of the femoral head into the bony pelvis Chest CT 12/01/17 19:16 IMPRESSION: ALTHOUGH THERE HAS BEEN INTERVAL IMPROVEMENT OF MEDIASTINAL AND HILAR LYMPHADENOPATHY WELL DOMINANT MASS RIGHT SUPRAHILAR LUNG AND RIGHT UPPER LOBE THERE HAS BEEN INTERVAL DEVELOPMENT OF NEW WILL ENLARGING PULMONARY NODULES/MASSES COMPATIBLE WITH OVERALL PROGRESSION OF METASTATIC LUNG CANCER. NEW BILATERAL LOWER LOBE AIRSPACE DISEASE SUSPICIOUS FOR PNEUMONIA. CORRELATE WITH FEVER/ELEVATED WHITE BLOOD CELL COUNT. Head CT 12/01/17 19:16 IMPRESSION: MILD CHRONIC CHANGES OF ATROPHY AND MICROVASCULAR ISCHEMIA. PARANASAL SINUS DISEASE. NO ACUTE INTRACRANIAL PROCESS. EVIDENCE OF ACUTE STROKE: NO. Abdomen/Pelvis CT 12/04/17 00:00 IMPRESSION: 1. There is evidence of multiple bilateral pulmonary masses consistent with metastatic disease. Bibasilar infiltrate and effusions. Fatty infiltration liver. Status post cholecystectomy. Pathological fracture of right hip and acetabulum. Expansile lytic lesion left ilium at the SI joint. Possible lytic change left ischium. These findings are compatible with changes of metastatic carcinoma of the lung by history Status: Imported from PACS Assessment & Plan - Diagnosis (1) Right acetabular fracture Qualifiers: Encounter type: subsequent encounter Sublocation of acetabulum: medial wall Fracture type: closed Fracture alignment: displaced Is this a current diagnosis for this admission?: Yes Plan: 77-year-old white female with a right pathologic acetabular fracture secondary to lung carcinoma and protrusio of the femoral head. Tentative surgical plan is for hip reconstruction using a protrusio cage. Cage has been secured for Monday and the patient will be added to the operative schedule for the discussed procedure. - Time Time Spent with patient: 15-24 minutes Anticipated discharge: SNF Within: Other
[2017-12-07] MEDS: HEPARIN SOD (PORCINE) 5,000 UNIT/ML 1 ML SYRINGE SUBCUT SCH ×3 (06:28→21:34)
[2017-12-07] MEDS ORDERED: OXYCODONE HCL IR 5 MG TABLET PO PRN (08:28)
[2017-12-07] MEDS ORDERED: FENTANYL 75 MCG/HR PATCH.TD72 TD ONE (08:30)
[2017-12-07] MEDS ORDERED: ONDANSETRON HCL INJ/PF 4 MG/2 ML SDV IV PRN (09:00)
--- NOTE | 2017-12-07 09:01 | PDOC PROGRESS REPORT ---
Subjective Progress Note for:: 12/07/17 Subjective:: Still w/ pain, planned for surgery on monday Reason For Visit: RIGHT HIP FRACTURE Physical Exam Vital Signs: Temp Pulse Resp BP Pulse Ox 98.3 F 111 H 18 118/50 L 98 12/06/17 23:09 12/06/17 23:09 12/06/17 23:09 12/06/17 23:09 12/07/17 00:18 Intake & Output 12/06/17 12/07/17 12/08/17 06:59 06:59 06:59 Intake Total 876 1222 Output Total 900 575 Balance -24 647 Weight 65 kg 70.4 kg General appearance: PRESENT: no acute distress, well-developed, well-nourished Head exam: PRESENT: atraumatic, normocephalic Eye exam: PRESENT: conjunctiva pink, EOMI, PERRLA. ABSENT: scleral icterus Ear exam: PRESENT: normal external ear exam Mouth exam: PRESENT: moist, tongue midline Neck exam: ABSENT: carotid bruit, JVD, lymphadenopathy, thyromegaly Respiratory exam: PRESENT: clear to auscultation mehdi. ABSENT: rales, rhonchi, wheezes Cardiovascular exam: PRESENT: RRR. ABSENT: diastolic murmur, rubs, systolic murmur Pulses: PRESENT: normal dorsalis pedis pul Vascular exam: PRESENT: normal capillary refill GI/Abdominal exam: PRESENT: normal bowel sounds, soft. ABSENT: distended, guarding, mass, organolmegaly, rebound, tenderness Rectal exam: PRESENT: deferred Extremities exam: PRESENT: full ROM. ABSENT: calf tenderness, clubbing, pedal edema Neurological exam: PRESENT: alert, awake, oriented to person, oriented to place , oriented to time, oriented to situation, CN II-XII grossly intact. ABSENT: motor sensory deficit Psychiatric exam: PRESENT: appropriate affect, normal mood. ABSENT: homicidal ideation, suicidal ideation Skin exam: PRESENT: dry, intact, warm. ABSENT: cyanosis, rash Results Laboratory Results: 12/06/17 05:08 12/07/17 04:23 12/07/17 04:23 Sodium 132.1 L Potassium 3.5 L D Chloride 97 L Carbon Dioxide 27 Anion Gap 8 BUN 8 Creatinine 0.51 L Est GFR ( Amer) > 60 Est GFR (Non-Af Amer) > 60 Glucose 109 Calcium 7.4 L 12/02/17 01:58 Blood Blood Culture - Final NO GROWTH IN 5 DAYS 12/02/17 01:11 Blood Blood Culture - Final NO GROWTH IN 5 DAYS Impressions: Hip/Pelvis X-Ray 12/01/17 17:53 IMPRESSION: Medial wall right acetabular fracture with protrusion of the femoral head into the bony pelvis Chest CT 12/01/17 19:16 IMPRESSION: ALTHOUGH THERE HAS BEEN INTERVAL IMPROVEMENT OF MEDIASTINAL AND HILAR LYMPHADENOPATHY WELL DOMINANT MASS RIGHT SUPRAHILAR LUNG AND RIGHT UPPER LOBE THERE HAS BEEN INTERVAL DEVELOPMENT OF NEW WILL ENLARGING PULMONARY NODULES/MASSES COMPATIBLE WITH OVERALL PROGRESSION OF METASTATIC LUNG CANCER. NEW BILATERAL LOWER LOBE AIRSPACE DISEASE SUSPICIOUS FOR PNEUMONIA. CORRELATE WITH FEVER/ELEVATED WHITE BLOOD CELL COUNT. Head CT 12/01/17 19:16 IMPRESSION: MILD CHRONIC CHANGES OF ATROPHY AND MICROVASCULAR ISCHEMIA. PARANASAL SINUS DISEASE. NO ACUTE INTRACRANIAL PROCESS. EVIDENCE OF ACUTE STROKE: NO. Abdomen/Pelvis CT 12/04/17 00:00 IMPRESSION: 1. There is evidence of multiple bilateral pulmonary masses consistent with metastatic disease. Bibasilar infiltrate and effusions. Fatty infiltration liver. Status post cholecystectomy. Pathological fracture of right hip and acetabulum. Expansile lytic lesion left ilium at the SI joint. Possible lytic change left ischium. These findings are compatible with changes of metastatic carcinoma of the lung by history Assessment & Plan - Diagnosis (1) Right acetabular fracture Qualifiers: Encounter type: subsequent encounter Sublocation of acetabulum: medial wall Fracture type: closed Fracture alignment: displaced Is this a current diagnosis for this admission?: Yes Plan: Surgery monday, cont current pain control (2) Lung cancer metastatic to bone Is this a current diagnosis for this admission?: Yes Plan: Cont current pain control, not candidate for further rx at present
[2017-12-07] MEDS: LIDOCAINE 5% (700 MG) TRANSDERMAL ADH..PATCH TP SCH (09:33)
[2017-12-07] MEDS: CIPROFLOXACIN HCL 500 MG TABLET PO SCH ×2 (09:33→21:34)
[2017-12-07] MEDS: LORATADINE 10 MG TABLET PO SCH (09:33)
[2017-12-07] MEDS: HYDROCORTISONE 0.5% CREAM 28.35 GM TP SCH ×2 (09:40→17:37)
--- NOTE | 2017-12-07 14:04 | PDOC PROGRESS REPORT ---
Subjective Progress Note for:: 12/07/17 Subjective:: The patient is a 77 year old female with PMH significant for Lung CA with bone metastasis, COPD, and arthritis who was admitted on 12/01/27 with intracable pain secondary to a right acetabular fracture and UTI. The patient is seen on morning rounds. She is found resting in bed comfortably on supplemental oxygen at 2 lpm. The patient continues to complain of pain. Otherwise, she has no complaints. She denies fever/chills, chest pain, palpitations, dyspnea, cough, abd pain, nausea/vomiting, diarrhea and constipation. Reason For Visit: RIGHT HIP FRACTURE Physical Exam Vital Signs: Temp Pulse Resp BP Pulse Ox 98.3 F 111 H 18 118/50 L 93 12/06/17 23:09 12/06/17 23:09 12/06/17 23:09 12/06/17 23:09 12/07/17 09:01 Intake & Output 12/06/17 12/07/17 12/08/17 06:59 06:59 06:59 Intake Total 876 1222 Output Total 900 575 Balance -24 647 Weight 65 kg 70.4 kg General appearance: PRESENT: no acute distress, well-developed, well-nourished Head exam: PRESENT: atraumatic, normocephalic Eye exam: PRESENT: conjunctiva pink, EOMI, PERRLA. ABSENT: scleral icterus Ear exam: PRESENT: normal external ear exam Mouth exam: PRESENT: moist, tongue midline Neck exam: ABSENT: carotid bruit, JVD, lymphadenopathy, thyromegaly Respiratory exam: PRESENT: clear to auscultation mehdi, symmetrical, unlabored. ABSENT: rales, rhonchi, wheezes Cardiovascular exam: PRESENT: RRR, +S1, +S2. ABSENT: diastolic murmur, rubs, systolic murmur Pulses: PRESENT: normal dorsalis pedis pul Vascular exam: PRESENT: normal capillary refill GI/Abdominal exam: PRESENT: normal bowel sounds, soft. ABSENT: distended, guarding, mass, organolmegaly, rebound, tenderness Rectal exam: PRESENT: deferred Extremities exam: ABSENT: calf tenderness, clubbing, full ROM - Limited secondary to R acetabular fracture., pedal edema Neurological exam: PRESENT: alert, awake, oriented to person, oriented to place , oriented to time, oriented to situation, CN II-XII grossly intact. ABSENT: motor sensory deficit Psychiatric exam: PRESENT: appropriate affect, depressed, normal mood. ABSENT: homicidal ideation, suicidal ideation Skin exam: PRESENT: dry, intact, warm. ABSENT: cyanosis, rash Results Laboratory Results: 12/06/17 05:08 12/07/17 04:23 12/07/17 04:23 Sodium 132.1 L Potassium 3.5 L D Chloride 97 L Carbon Dioxide 27 Anion Gap 8 BUN 8 Creatinine 0.51 L Est GFR ( Amer) > 60 Est GFR (Non-Af Amer) > 60 Glucose 109 Calcium 7.4 L 12/02/17 01:58 Blood Blood Culture - Final NO GROWTH IN 5 DAYS 12/02/17 01:11 Blood Blood Culture - Final NO GROWTH IN 5 DAYS Impressions: Hip/Pelvis X-Ray 12/01/17 17:53 IMPRESSION: Medial wall right acetabular fracture with protrusion of the femoral head into the bony pelvis Chest CT 12/01/17 19:16 IMPRESSION: ALTHOUGH THERE HAS BEEN INTERVAL IMPROVEMENT OF MEDIASTINAL AND HILAR LYMPHADENOPATHY WELL DOMINANT MASS RIGHT SUPRAHILAR LUNG AND RIGHT UPPER LOBE THERE HAS BEEN INTERVAL DEVELOPMENT OF NEW WILL ENLARGING PULMONARY NODULES/MASSES COMPATIBLE WITH OVERALL PROGRESSION OF METASTATIC LUNG CANCER. NEW BILATERAL LOWER LOBE AIRSPACE DISEASE SUSPICIOUS FOR PNEUMONIA. CORRELATE WITH FEVER/ELEVATED WHITE BLOOD CELL COUNT. Head CT 12/01/17 19:16 IMPRESSION: MILD CHRONIC CHANGES OF ATROPHY AND MICROVASCULAR ISCHEMIA. PARANASAL SINUS DISEASE. NO ACUTE INTRACRANIAL PROCESS. EVIDENCE OF ACUTE STROKE: NO. Abdomen/Pelvis CT 12/04/17 00:00 IMPRESSION: 1. There is evidence of multiple bilateral pulmonary masses consistent with metastatic disease. Bibasilar infiltrate and effusions. Fatty infiltration liver. Status post cholecystectomy. Pathological fracture of right hip and acetabulum. Expansile lytic lesion left ilium at the SI joint. Possible lytic change left ischium. These findings are compatible with changes of metastatic carcinoma of the lung by history Assessment & Plan - Diagnosis (1) Right acetabular fracture Qualifiers: Encounter type: subsequent encounter Sublocation of acetabulum: medial wall Fracture type: closed Fracture alignment: displaced Is this a current diagnosis for this admission?: Yes Plan: Primary plan per orthopedics; plan for surgery once electrolytes are corrected and hardware has been delivered. The patient is being scheduled for the OR on Monday. (2) UTI (urinary tract infection) Qualifiers: Urinary tract infection type: acute cystitis Hematuria presence: without hematuria Qualified Code(s): N30.00 - Acute cystitis without hematuria Is this a current diagnosis for this admission?: Yes Plan: Urine culture: E. coli, Klebsiella Blood culture: No growth (final) The patient was initially placed on Zosyn and vancomycin has been transitioned to p.o. ciprofloxacin. Currently on Cipro day 2 of 3. (3) Hypocalcemia Is this a current diagnosis for this admission?: Yes Plan: Improved; corrected calcium is 9.2 We will continue to monitor. (4) Hypokalemia Is this a current diagnosis for this admission?: Yes Plan: Improved. Will provide p.o. potassium supplementation today. We will monitor closely and continue to replace as needed. (5) Hyponatremia Is this a current diagnosis for this admission?: Yes Plan: Stable at 132.1 Will continue to monitor. (6) Intractable pain Is this a current diagnosis for this admission?: Yes Plan: I have reviewed the last 48 hours of narcotic pain medications. We will increase fentanyl patch from 50 mcg to 75 mcg. We will continue oxycodone 15 mg every 3 hours as needed, and IV dilaudid for break through pain. Continue Lidocain patches. Discussed with nursing increase in fentanyl patch and asked them to be especially vigilant for sedation. Encourage nonpharmacological interventions: position changes/pillow support, heat pad, etc. (7) Lung cancer metastatic to bone Is this a current diagnosis for this admission?: Yes Plan: Unfortunately she is not a candidate for further chemoradiation. She will be transferred to an inpatient hospice facility at discharge. Appreciate discharge planning's assistance in making arrangements. (8) Pneumonia Qualifiers: Pneumonia type: due to unspecified organism Laterality: bilateral Lung location: lower lobe of lung Qualified Code(s): J18.9 - Pneumonia, unspecified organism Is this a current diagnosis for this admission?: Yes Plan: I am less concerned about pneumonia as atelectasis. WBC are normal and the patient is afebrile. She denies dyspnea, orthopnea, and cough. Blood cultures: No growth (final) Pt was empirically placed on Vancomycin and Zosyn on admission; she has been transitioned to Cipro for e. coli/klebsiella in urine. Will encourage turn/cough/deep breath and incentive spirometry hourly while awake. - Time Time Spent with patient: 25-34 minutes Medications reviewed and adjusted accordingly: Yes Anticipated discharge: Hospice Within: Other - Following surgical repair of Hip on Monday
[2017-12-07] MEDS ORDERED: ACETAMINOPHEN 325 MG TABLET PO PRN (15:00)
[2017-12-08] MEDS: HYDROMORPHONE HCL INJ/PF 2 MG/ML AMPULE IV PRN ×4 (04:00→23:06)
[2017-12-08] MEDS: PHARMACY COMMUNICATION ORDER MC SCH ×2 (05:41→23:43)
--- NOTE | 2017-12-08 06:18 | PDOC PROGRESS REPORT ---
Subjective Progress Note for:: 12/08/17 Reason For Visit: RIGHT HIP FRACTURE 77-year-old white female with a right pathologic acetabular fracture and protrusio scheduled for hip reconstruction on Monday Physical Exam Vital Signs: Temp Pulse Resp BP Pulse Ox 36.9 C 101 H 16 103/47 L 94 12/07/17 23:12 12/07/17 23:12 12/07/17 23:12 12/07/17 23:12 12/07/17 23:12 Intake & Output 12/06/17 12/07/17 12/08/17 06:59 06:59 06:59 Intake Total 876 1222 864 Output Total 900 575 600 Balance -24 647 264 Weight 65 kg 70.4 kg 70.7 kg General appearance: PRESENT: mild distress Neurological exam: PRESENT: alert, awake, oriented to person, oriented to place , oriented to time, oriented to situation. ABSENT: motor sensory deficit Skin exam: PRESENT: other - Diffuse lower extremity soft tissue swelling Results Laboratory Results: 12/06/17 05:08 12/07/17 04:23 12/02/17 01:58 Blood Blood Culture - Final NO GROWTH IN 5 DAYS 12/02/17 01:11 Blood Blood Culture - Final NO GROWTH IN 5 DAYS Impressions: Hip/Pelvis X-Ray 12/01/17 17:53 IMPRESSION: Medial wall right acetabular fracture with protrusion of the femoral head into the bony pelvis Chest CT 12/01/17 19:16 IMPRESSION: ALTHOUGH THERE HAS BEEN INTERVAL IMPROVEMENT OF MEDIASTINAL AND HILAR LYMPHADENOPATHY WELL DOMINANT MASS RIGHT SUPRAHILAR LUNG AND RIGHT UPPER LOBE THERE HAS BEEN INTERVAL DEVELOPMENT OF NEW WILL ENLARGING PULMONARY NODULES/MASSES COMPATIBLE WITH OVERALL PROGRESSION OF METASTATIC LUNG CANCER. NEW BILATERAL LOWER LOBE AIRSPACE DISEASE SUSPICIOUS FOR PNEUMONIA. CORRELATE WITH FEVER/ELEVATED WHITE BLOOD CELL COUNT. Head CT 12/01/17 19:16 IMPRESSION: MILD CHRONIC CHANGES OF ATROPHY AND MICROVASCULAR ISCHEMIA. PARANASAL SINUS DISEASE. NO ACUTE INTRACRANIAL PROCESS. EVIDENCE OF ACUTE STROKE: NO. Abdomen/Pelvis CT 12/04/17 00:00 IMPRESSION: 1. There is evidence of multiple bilateral pulmonary masses consistent with metastatic disease. Bibasilar infiltrate and effusions. Fatty infiltration liver. Status post cholecystectomy. Pathological fracture of right hip and acetabulum. Expansile lytic lesion left ilium at the SI joint. Possible lytic change left ischium. These findings are compatible with changes of metastatic carcinoma of the lung by history Status: Imported from PACS Assessment & Plan - Diagnosis (1) Right acetabular fracture Qualifiers: Encounter type: subsequent encounter Sublocation of acetabulum: medial wall Fracture type: closed Fracture alignment: displaced Is this a current diagnosis for this admission?: Yes Plan: Plan for right hip reconstruction on Monday. Preoperative orders have been written - Time Time Spent with patient: 15-24 minutes Anticipated discharge: SNF Within: Other
[2017-12-08] MEDS: HEPARIN SOD (PORCINE) 5,000 UNIT/ML 1 ML SYRINGE SUBCUT SCH ×3 (06:41→22:15)
--- NOTE | 2017-12-08 08:22 | PDOC PROGRESS REPORT ---
Subjective Progress Note for:: 12/08/17 Subjective:: No acute events overnight, preop orders in for surgery on monday Reason For Visit: RIGHT HIP FRACTURE Physical Exam Vital Signs: Temp Pulse Resp BP Pulse Ox 98.5 F 101 H 16 103/47 L 94 12/07/17 23:12 12/07/17 23:12 12/07/17 23:12 12/07/17 23:12 12/07/17 23:12 Intake & Output 12/07/17 12/08/17 12/09/17 06:59 06:59 06:59 Intake Total 1222 864 Output Total 575 600 Balance 647 264 Weight 70.4 kg 70.7 kg General appearance: PRESENT: no acute distress, well-developed, well-nourished Head exam: PRESENT: atraumatic, normocephalic Eye exam: PRESENT: conjunctiva pink, EOMI, PERRLA. ABSENT: scleral icterus Ear exam: PRESENT: normal external ear exam Mouth exam: PRESENT: moist, tongue midline Neck exam: ABSENT: carotid bruit, JVD, lymphadenopathy, thyromegaly Respiratory exam: PRESENT: clear to auscultation mehdi. ABSENT: rales, rhonchi, wheezes Cardiovascular exam: PRESENT: RRR. ABSENT: diastolic murmur, rubs, systolic murmur Pulses: PRESENT: normal dorsalis pedis pul Vascular exam: PRESENT: normal capillary refill GI/Abdominal exam: PRESENT: normal bowel sounds, soft. ABSENT: distended, guarding, mass, organolmegaly, rebound, tenderness Rectal exam: PRESENT: deferred Extremities exam: PRESENT: full ROM. ABSENT: calf tenderness, clubbing, pedal edema Neurological exam: PRESENT: alert, awake, oriented to person, oriented to place , oriented to time, oriented to situation, CN II-XII grossly intact. ABSENT: motor sensory deficit Psychiatric exam: PRESENT: appropriate affect, normal mood. ABSENT: homicidal ideation, suicidal ideation Skin exam: PRESENT: dry, intact, warm. ABSENT: cyanosis, rash Results Laboratory Results: 12/06/17 05:08 12/07/17 04:23 Impressions: Hip/Pelvis X-Ray 12/01/17 17:53 IMPRESSION: Medial wall right acetabular fracture with protrusion of the femoral head into the bony pelvis Chest CT 12/01/17 19:16 IMPRESSION: ALTHOUGH THERE HAS BEEN INTERVAL IMPROVEMENT OF MEDIASTINAL AND HILAR LYMPHADENOPATHY WELL DOMINANT MASS RIGHT SUPRAHILAR LUNG AND RIGHT UPPER LOBE THERE HAS BEEN INTERVAL DEVELOPMENT OF NEW WILL ENLARGING PULMONARY NODULES/MASSES COMPATIBLE WITH OVERALL PROGRESSION OF METASTATIC LUNG CANCER. NEW BILATERAL LOWER LOBE AIRSPACE DISEASE SUSPICIOUS FOR PNEUMONIA. CORRELATE WITH FEVER/ELEVATED WHITE BLOOD CELL COUNT. Head CT 12/01/17 19:16 IMPRESSION: MILD CHRONIC CHANGES OF ATROPHY AND MICROVASCULAR ISCHEMIA. PARANASAL SINUS DISEASE. NO ACUTE INTRACRANIAL PROCESS. EVIDENCE OF ACUTE STROKE: NO. Abdomen/Pelvis CT 12/04/17 00:00 IMPRESSION: 1. There is evidence of multiple bilateral pulmonary masses consistent with metastatic disease. Bibasilar infiltrate and effusions. Fatty infiltration liver. Status post cholecystectomy. Pathological fracture of right hip and acetabulum. Expansile lytic lesion left ilium at the SI joint. Possible lytic change left ischium. These findings are compatible with changes of metastatic carcinoma of the lung by history Assessment & Plan - Diagnosis (1) Right acetabular fracture Qualifiers: Encounter type: subsequent encounter Sublocation of acetabulum: medial wall Fracture type: closed Fracture alignment: displaced Is this a current diagnosis for this admission?: Yes Plan: Fx repair monday planned, con't current pain control (2) Lung cancer metastatic to bone Is this a current diagnosis for this admission?: Yes Plan: No further chemo/rx, plan as above
[2017-12-08] MEDS ORDERED: GLUCAGON,HUMAN RECOMB 1 MG INJ SUBCUT PRN (08:43)
[2017-12-08] MEDS ORDERED: DEXTROSE 50%-WATER 25 GM/50 ML DISP.SYRIN IV PRN ×2 (08:43)
[2017-12-08] MEDS ORDERED: DEXTROSE 40% GEL 15 GM TUBE PO PRN ×2 (08:43)
[2017-12-08] MEDS: LORATADINE 10 MG TABLET PO SCH (09:09)
[2017-12-08] MEDS: CIPROFLOXACIN HCL 500 MG TABLET PO SCH ×2 (09:09→22:08)
[2017-12-08] MEDS: LIDOCAINE 5% (700 MG) TRANSDERMAL ADH..PATCH TP SCH (09:10)
[2017-12-08] MEDS: HYDROCORTISONE 0.5% CREAM 28.35 GM TP SCH ×2 (09:10→17:20)
[2017-12-08] MEDS ORDERED: POTASSIUM CHLORIDE 10 MEQ TABLET.SA PO SCH (10:00)
[2017-12-08] MEDS: OXYCODONE HCL IR 5 MG TABLET PO PRN (10:10)
--- NOTE | 2017-12-08 14:43 | PDOC PROGRESS REPORT ---
Subjective Progress Note for:: 12/08/17 Subjective:: The patient is a 77 year old female with PMH significant for Lung CA with bone metastasis, COPD, and arthritis who was admitted on 12/01/27 with intracable pain secondary to a right acetabular fracture and UTI. The patient is seen on morning rounds; she is found resting in bed on supplemental oxygen at 2 L/min. She is in a significant amount of pain at this time and asks assistance with repositioning and for additional pain medications if they are available. Otherwise, she has no complaints. She denies fever/chills, chest pain, palpitations, dyspnea, cough, abd pain, nausea/vomiting, diarrhea and constipation. Reason For Visit: RIGHT HIP FRACTURE Physical Exam Vital Signs: Temp Pulse Resp BP Pulse Ox 98.2 F 100 18 101/45 L 97 12/08/17 08:04 12/08/17 08:04 12/08/17 08:04 12/08/17 08:04 12/08/17 08:04 Intake & Output 12/07/17 12/08/17 12/09/17 06:59 06:59 06:59 Intake Total 1222 864 Output Total 575 600 Balance 647 264 Weight 70.4 kg 70.7 kg General appearance: PRESENT: no acute distress, well-developed, well-nourished Head exam: PRESENT: atraumatic, normocephalic Eye exam: PRESENT: conjunctiva pink, EOMI, PERRLA. ABSENT: scleral icterus Ear exam: PRESENT: normal external ear exam Mouth exam: PRESENT: moist, tongue midline Neck exam: ABSENT: carotid bruit, JVD, lymphadenopathy, thyromegaly Respiratory exam: PRESENT: clear to auscultation mehdi, decreased breath sounds - bibasilar; poor effort, symmetrical, unlabored. ABSENT: rales, rhonchi, wheezes Cardiovascular exam: PRESENT: RRR, +S1, +S2. ABSENT: diastolic murmur, rubs, systolic murmur Pulses: PRESENT: normal dorsalis pedis pul Vascular exam: PRESENT: normal capillary refill GI/Abdominal exam: PRESENT: normal bowel sounds, soft. ABSENT: distended, guarding, mass, organolmegaly, rebound, tenderness Rectal exam: PRESENT: deferred Extremities exam: ABSENT: calf tenderness, clubbing, full ROM - Secondary to right acetabular fracture, pedal edema Neurological exam: PRESENT: alert, awake, oriented to person, oriented to place , oriented to time, oriented to situation, CN II-XII grossly intact. ABSENT: motor sensory deficit Psychiatric exam: PRESENT: appropriate affect, normal mood. ABSENT: homicidal ideation, suicidal ideation Skin exam: PRESENT: dry, intact, warm. ABSENT: cyanosis, rash Results Laboratory Results: 12/06/17 05:08 12/07/17 04:23 Impressions: Hip/Pelvis X-Ray 12/01/17 17:53 IMPRESSION: Medial wall right acetabular fracture with protrusion of the femoral head into the bony pelvis Chest CT 12/01/17 19:16 IMPRESSION: ALTHOUGH THERE HAS BEEN INTERVAL IMPROVEMENT OF MEDIASTINAL AND HILAR LYMPHADENOPATHY WELL DOMINANT MASS RIGHT SUPRAHILAR LUNG AND RIGHT UPPER LOBE THERE HAS BEEN INTERVAL DEVELOPMENT OF NEW WILL ENLARGING PULMONARY NODULES/MASSES COMPATIBLE WITH OVERALL PROGRESSION OF METASTATIC LUNG CANCER. NEW BILATERAL LOWER LOBE AIRSPACE DISEASE SUSPICIOUS FOR PNEUMONIA. CORRELATE WITH FEVER/ELEVATED WHITE BLOOD CELL COUNT. Head CT 12/01/17 19:16 IMPRESSION: MILD CHRONIC CHANGES OF ATROPHY AND MICROVASCULAR ISCHEMIA. PARANASAL SINUS DISEASE. NO ACUTE INTRACRANIAL PROCESS. EVIDENCE OF ACUTE STROKE: NO. Abdomen/Pelvis CT 12/04/17 00:00 IMPRESSION: 1. There is evidence of multiple bilateral pulmonary masses consistent with metastatic disease. Bibasilar infiltrate and effusions. Fatty infiltration liver. Status post cholecystectomy. Pathological fracture of right hip and acetabulum. Expansile lytic lesion left ilium at the SI joint. Possible lytic change left ischium. These findings are compatible with changes of metastatic carcinoma of the lung by history Assessment & Plan - Diagnosis (1) Right acetabular fracture Qualifiers: Encounter type: subsequent encounter Sublocation of acetabulum: medial wall Fracture type: closed Fracture alignment: displaced Is this a current diagnosis for this admission?: Yes Plan: Primary plan per orthopedics; plan for surgery once hardware has been delivered. The patient is being scheduled for the OR on Monday. (2) UTI (urinary tract infection) Qualifiers: Urinary tract infection type: acute cystitis Hematuria presence: without hematuria Qualified Code(s): N30.00 - Acute cystitis without hematuria Is this a current diagnosis for this admission?: Yes Plan: Urine culture: E. coli, Klebsiella Blood culture: No growth (final) The patient was initially placed on Zosyn and vancomycin has been transitioned to p.o. ciprofloxacin. Currently on Cipro day 3 of 3. (3) Hypocalcemia Is this a current diagnosis for this admission?: Yes Plan: Improved; corrected calcium is 9.2 We will continue to monitor. (4) Hypokalemia Is this a current diagnosis for this admission?: Yes Plan: Improved. We will monitor closely and continue to replace as needed. (5) Hyponatremia Is this a current diagnosis for this admission?: Yes Plan: Stable at 132.1 Will continue to monitor. (6) Intractable pain Is this a current diagnosis for this admission?: Yes Plan: Continue fentanyl Duragesic patch 75 mcg. We will adjust oxycodone from as needed to scheduled 15 mg every 4 hours. IV dilaudid for break through pain only. Continue Lidocain patches. Encourage nonpharmacological interventions: position changes/pillow support, heat pad, etc. (7) Lung cancer metastatic to bone Is this a current diagnosis for this admission?: Yes Plan: Unfortunately she is not a candidate for further chemoradiation. She will be transferred to an inpatient hospice facility at discharge. Appreciate discharge planning's assistance in making arrangements. (8) Pneumonia Qualifiers: Pneumonia type: due to unspecified organism Laterality: bilateral Lung location: lower lobe of lung Qualified Code(s): J18.9 - Pneumonia, unspecified organism Is this a current diagnosis for this admission?: Yes Plan: I am less concerned about pneumonia as atelectasis. WBC are normal and the patient is afebrile. She denies dyspnea, orthopnea, and cough. Blood cultures: No growth (final) Pt was empirically placed on Vancomycin and Zosyn on admission; she has been transitioned to Cipro for e. coli/klebsiella in urine. Will encourage turn/cough/deep breath and incentive spirometry hourly while awake. - Time Time Spent with patient: 25-34 minutes Medications reviewed and adjusted accordingly: Yes Anticipated discharge: Hospice
[2017-12-08] MEDS: OXYCODONE HCL IR 5 MG TABLET PO SCH ×3 (14:48→22:08)
--- NOTE | 2017-12-08 21:17 | Progress Note ---
Provider Note Provider Note: Palliative Care follow up visit 12/08/17 1:20 pm Brief follow up visit for support of this 77 year old woman who has metastatic lung cancer and pathologivc fracture in right hip. SHe is awaiting hip surgery scheduled for next week. After the surgery, patient is hoping to be transferred to facility near her daughters home in [place]. She may go to [facility] in [place] while awaiting facility in [place] or go to SNF for rehab. Daughter is not at hospital at this time, but I will talk with her next week. Patient is asleep at time of my visit. No respiratory distress, BS CTA front lobes. Heart regular. She still is pale and frail in appearance, She shows no sign of pain while sleeping this afternoon, but notes state she has pain with movement or position change. She continues to have her fentanyl transdermal patch, oxycodone and dilaudid for breakthrough pain. Labs and vital signs are remaining stable. Norberto reported eating well when I spoke with her 2 days ago and states she likes the food. Hopefully she will gain strength with eating and resting to rehab to some potential after surgery. SHe has the will to get better but body i debilitated with low albumin and muscular wasting. She may do better with increase in fentanyl to 100 mCg TD patch so she will not need as much breakthrough medication. Will follow and will speak with her daughter for support.
[2017-12-09] MEDS: OXYCODONE HCL IR 5 MG TABLET PO SCH ×6 (02:21→22:17)
[2017-12-09] MEDS: HEPARIN SOD (PORCINE) 5,000 UNIT/ML 1 ML SYRINGE SUBCUT SCH ×3 (05:36→22:17)
[2017-12-09] MEDS ORDERED: FENTANYL 75 MCG/HR PATCH.TD72 TD SCH (07:45)
[2017-12-09 08:22] LABS: HEMATOCRIT 34.7 % (36.0-47.0); HEMOGLOBIN 11.3 g/dL (12.0-15.5); MEAN CORPUSCULAR HEMOGLOBIN 26.1 pg (27.0-33.4); MEAN CORPUSCULAR HGB CONC 32.4 g/dL (32.0-36.0); MEAN CORPUSCULAR VOLUME 81 fl (80-97); PLATELET COUNT 298 10^3/uL (150-450); RED BLOOD COUNT 4.31 10^6/uL (3.72-5.28); RED CELL DISTRIBUTION WIDTH 20.4 % (11.5-14.0); WHITE BLOOD COUNT 10.9 10^3/uL (4.0-10.5)
[2017-12-09 08:41] LABS: BLOOD UREA NITROGEN 7 mg/dL (7-20); CALCIUM 7.2 mg/dL (8.4-10.2); CARBON DIOXIDE 28 mmol/L (22-30); CHLORIDE 96 mmol/L (98-107); GLUCOSE 97 mg/dL (75-110); POTASSIUM 3.5 mmol/L (3.6-5.0); SODIUM 128.3 mmol/L (137-145)
[2017-12-09 08:44] LABS: ANION GAP 4 (5-19)
[2017-12-09] MEDS ORDERED: POTASSIUM CHLORIDE 10 MEQ TABLET.SA PO ONE (09:30)
[2017-12-09] MEDS: CIPROFLOXACIN HCL 500 MG TABLET PO SCH (09:56)
[2017-12-09] MEDS: LIDOCAINE 5% (700 MG) TRANSDERMAL ADH..PATCH TP SCH (09:57)
[2017-12-09] MEDS: LORATADINE 10 MG TABLET PO SCH (09:57)
[2017-12-09] MEDS: HYDROCORTISONE 0.5% CREAM 28.35 GM TP SCH ×2 (09:57→17:38)
[2017-12-09] MEDS: CALCIUM CARBONATE 500 MG TABLET PO SCH (10:00)
[2017-12-09] MEDS: HYDROMORPHONE HCL INJ/PF 2 MG/ML AMPULE IV PRN ×4 (10:59→22:17)
--- NOTE | 2017-12-09 11:51 | PDOC PROGRESS REPORT ---
Subjective Progress Note for:: 12/09/17 Subjective:: Patient has no new complaints today. She is excited to have surgery in 2 days to fix her broken hip. She states that pain is controlled will current meds. ROS: she is eating well. No difficulties with bowel movements. No dyspnea. Reason For Visit: RIGHT HIP FRACTURE Physical Exam Vital Signs: Temp Pulse Resp BP Pulse Ox 98.0 F 98 14 106/50 L 95 12/09/17 00:44 12/09/17 00:44 12/09/17 00:44 12/09/17 00:44 12/09/17 09:19 Intake & Output 12/08/17 12/09/17 12/10/17 06:59 06:59 06:59 Intake Total 864 720 Output Total 600 1000 Balance 264 -280 Weight 70.7 kg 72.7 kg General appearance: PRESENT: no acute distress, well-nourished Head exam: PRESENT: atraumatic Mouth exam: PRESENT: moist Respiratory exam: PRESENT: clear to auscultation mehdi, unlabored Cardiovascular exam: PRESENT: RRR GI/Abdominal exam: PRESENT: soft. ABSENT: tenderness Extremities exam: PRESENT: +2 edema Neurological exam: PRESENT: alert, awake Psychiatric exam: PRESENT: appropriate affect Results Laboratory Results: 12/09/17 07:54 12/09/17 07:54 12/09/17 12/09/17 07:54 07:54 WBC 10.9 H RBC 4.31 Hgb 11.3 L Hct 34.7 L MCV 81 MCH 26.1 L MCHC 32.4 RDW 20.4 H Plt Count 298 Sodium 128.3 L Potassium 3.5 L Chloride 96 L Carbon Dioxide 28 Anion Gap 4 L BUN 7 Creatinine 0.48 L Est GFR ( Amer) > 60 Est GFR (Non-Af Amer) > 60 Glucose 97 Calcium 7.2 L Impressions: Hip/Pelvis X-Ray 12/01/17 17:53 IMPRESSION: Medial wall right acetabular fracture with protrusion of the femoral head into the bony pelvis Chest CT 12/01/17 19:16 IMPRESSION: ALTHOUGH THERE HAS BEEN INTERVAL IMPROVEMENT OF MEDIASTINAL AND HILAR LYMPHADENOPATHY WELL DOMINANT MASS RIGHT SUPRAHILAR LUNG AND RIGHT UPPER LOBE THERE HAS BEEN INTERVAL DEVELOPMENT OF NEW WILL ENLARGING PULMONARY NODULES/MASSES COMPATIBLE WITH OVERALL PROGRESSION OF METASTATIC LUNG CANCER. NEW BILATERAL LOWER LOBE AIRSPACE DISEASE SUSPICIOUS FOR PNEUMONIA. CORRELATE WITH FEVER/ELEVATED WHITE BLOOD CELL COUNT. Head CT 12/01/17 19:16 IMPRESSION: MILD CHRONIC CHANGES OF ATROPHY AND MICROVASCULAR ISCHEMIA. PARANASAL SINUS DISEASE. NO ACUTE INTRACRANIAL PROCESS. EVIDENCE OF ACUTE STROKE: NO. Abdomen/Pelvis CT 12/04/17 00:00 IMPRESSION: 1. There is evidence of multiple bilateral pulmonary masses consistent with metastatic disease. Bibasilar infiltrate and effusions. Fatty infiltration liver. Status post cholecystectomy. Pathological fracture of right hip and acetabulum. Expansile lytic lesion left ilium at the SI joint. Possible lytic change left ischium. These findings are compatible with changes of metastatic carcinoma of the lung by history Assessment & Plan - Diagnosis (1) Lung cancer metastatic to bone Is this a current diagnosis for this admission?: Yes Plan: No further active treatment is planned at present. Continue aggressive palliative management. (2) Right acetabular fracture Qualifiers: Encounter type: subsequent encounter Sublocation of acetabulum: medial wall Fracture type: closed Fracture alignment: displaced Is this a current diagnosis for this admission?: Yes Plan: For Surgery in 2 days. (3) UTI (urinary tract infection) Qualifiers: Urinary tract infection type: acute cystitis Hematuria presence: without hematuria Qualified Code(s): N30.00 - Acute cystitis without hematuria Is this a current diagnosis for this admission?: Yes - Plan Summary Plan Summary: I agree with current pain regimen. Please call with any concerns. Continue DVT prophylaxis.
--- NOTE | 2017-12-09 15:31 | PDOC PROGRESS REPORT ---
Subjective Progress Note for:: 12/09/17 Subjective:: The patient is a 77 year old female with PMH significant for Lung CA with bone metastasis, COPD, and arthritis who was admitted on 12/01/27 with intracable pain secondary to a right acetabular fracture and UTI. The patient is seen on morning rounds; she is found resting in bed on supplemental oxygen at 2 L/min. She is in a significant amount of pain at this time and asks assistance with repositioning and for additional pain medications if they are available. I did check back on her later in the morning to find her resting comfortably following PRN pain medication administration. Otherwise, she has no complaints. She denies fever/chills, chest pain, palpitations, dyspnea, cough, abd pain, nausea/vomiting, diarrhea and constipation. Reason For Visit: RIGHT HIP FRACTURE Physical Exam Vital Signs: Temp Pulse Resp BP Pulse Ox 98.3 F 89 16 98/46 L 95 12/09/17 11:24 12/09/17 11:24 12/09/17 08:29 12/09/17 11:24 12/09/17 11:24 Intake & Output 12/08/17 12/09/17 12/10/17 06:59 06:59 06:59 Intake Total 864 720 Output Total 600 1000 Balance 264 -280 Weight 70.7 kg 72.7 kg General appearance: PRESENT: no acute distress, cooperative, well-developed, well-nourished Head exam: PRESENT: atraumatic, normocephalic Eye exam: PRESENT: conjunctiva pink, EOMI, PERRLA. ABSENT: scleral icterus Ear exam: PRESENT: normal external ear exam Mouth exam: PRESENT: moist, tongue midline Neck exam: ABSENT: carotid bruit, JVD, lymphadenopathy, thyromegaly Respiratory exam: PRESENT: clear to auscultation mehdi, decreased breath sounds - Basilar, symmetrical, unlabored, other - Supplemental oxygen via nasal cannula 2 L/min. ABSENT: rales, rhonchi, wheezes Cardiovascular exam: PRESENT: RRR, +S1, +S2. ABSENT: diastolic murmur, rubs, systolic murmur Pulses: PRESENT: normal dorsalis pedis pul Vascular exam: PRESENT: normal capillary refill GI/Abdominal exam: PRESENT: normal bowel sounds, soft. ABSENT: distended, guarding, mass, organolmegaly, rebound, tenderness Rectal exam: PRESENT: deferred Extremities exam: ABSENT: calf tenderness, clubbing, full ROM - Right acetabular fracture, pedal edema Neurological exam: PRESENT: alert, awake, oriented to person, oriented to place , oriented to time, oriented to situation, CN II-XII grossly intact. ABSENT: motor sensory deficit Psychiatric exam: PRESENT: appropriate affect, normal mood, other - Appropriately tearful. ABSENT: homicidal ideation, suicidal ideation Skin exam: PRESENT: dry, intact, warm. ABSENT: cyanosis, rash Results Laboratory Results: 12/09/17 07:54 12/09/17 07:54 12/09/17 12/09/17 07:54 07:54 WBC 10.9 H RBC 4.31 Hgb 11.3 L Hct 34.7 L MCV 81 MCH 26.1 L MCHC 32.4 RDW 20.4 H Plt Count 298 Sodium 128.3 L Potassium 3.5 L Chloride 96 L Carbon Dioxide 28 Anion Gap 4 L BUN 7 Creatinine 0.48 L Est GFR ( Amer) > 60 Est GFR (Non-Af Amer) > 60 Glucose 97 Calcium 7.2 L Impressions: Hip/Pelvis X-Ray 12/01/17 17:53 IMPRESSION: Medial wall right acetabular fracture with protrusion of the femoral head into the bony pelvis Chest CT 12/01/17 19:16 IMPRESSION: ALTHOUGH THERE HAS BEEN INTERVAL IMPROVEMENT OF MEDIASTINAL AND HILAR LYMPHADENOPATHY WELL DOMINANT MASS RIGHT SUPRAHILAR LUNG AND RIGHT UPPER LOBE THERE HAS BEEN INTERVAL DEVELOPMENT OF NEW WILL ENLARGING PULMONARY NODULES/MASSES COMPATIBLE WITH OVERALL PROGRESSION OF METASTATIC LUNG CANCER. NEW BILATERAL LOWER LOBE AIRSPACE DISEASE SUSPICIOUS FOR PNEUMONIA. CORRELATE WITH FEVER/ELEVATED WHITE BLOOD CELL COUNT. Head CT 12/01/17 19:16 IMPRESSION: MILD CHRONIC CHANGES OF ATROPHY AND MICROVASCULAR ISCHEMIA. PARANASAL SINUS DISEASE. NO ACUTE INTRACRANIAL PROCESS. EVIDENCE OF ACUTE STROKE: NO. Abdomen/Pelvis CT 12/04/17 00:00 IMPRESSION: 1. There is evidence of multiple bilateral pulmonary masses consistent with metastatic disease. Bibasilar infiltrate and effusions. Fatty infiltration liver. Status post cholecystectomy. Pathological fracture of right hip and acetabulum. Expansile lytic lesion left ilium at the SI joint. Possible lytic change left ischium. These findings are compatible with changes of metastatic carcinoma of the lung by history Assessment & Plan - Diagnosis (1) Right acetabular fracture Qualifiers: Encounter type: subsequent encounter Sublocation of acetabulum: medial wall Fracture type: closed Fracture alignment: displaced Is this a current diagnosis for this admission?: Yes Plan: Primary plan per orthopedics; plan for surgery once hardware has been delivered. The patient is being scheduled for the OR on Monday. (2) UTI (urinary tract infection) Qualifiers: Urinary tract infection type: acute cystitis Hematuria presence: without hematuria Qualified Code(s): N30.00 - Acute cystitis without hematuria Is this a current diagnosis for this admission?: Yes Plan: Resolved. Urine culture: E. coli, Klebsiella Blood culture: No growth (final) Appropriately treated with a full course of ciprofloxacin. (Patient initially received Zosyn and vancomycin empirically pending urine culture results). We will monitor for evidence of recurrence of symptoms. (3) Hypocalcemia Is this a current diagnosis for this admission?: Yes Plan: Improved; corrected calcium is 9.0 We will continue to monitor. (4) Hypokalemia Is this a current diagnosis for this admission?: Yes Plan: Improved. The patient is provided potassium 40 mEq today. She will be started on 20 mEq daily beginning tomorrow. We will monitor closely and continue to replace as needed. (5) Hyponatremia Is this a current diagnosis for this admission?: Yes Plan: Slight decline today; likely related to poor p.o. intake. Will continue to monitor. (6) Intractable pain Is this a current diagnosis for this admission?: Yes Plan: I am told by nursing that the patient's fentanyl patch fell off during removal of lidocaine patch approximately 36 hours ago and it was not replaced. Therefore, the patient has been without her fentanyl for some time. Palliative care notes are reviewed and noted, however as the patient has not been on fentanyl for 36 hours I am hesitant to increase to 100 mcg today. We will resume her Duragesic patch 75 mcg. Continue scheduled oxycodone 15 mg every 4 hours; anticipate that this can be decreased or discontinued following hip repair scheduled for Monday. IV dilaudid for break through pain only. Continue Lidocain patches. Encourage nonpharmacological interventions: position changes/pillow support, heat pad, etc. (7) Lung cancer metastatic to bone Is this a current diagnosis for this admission?: Yes Plan: Unfortunately she is not a candidate for further chemoradiation. She will be transferred to an inpatient hospice facility at discharge. Appreciate discharge planning's assistance in making arrangements. (8) Pneumonia Qualifiers: Pneumonia type: due to unspecified organism Laterality: bilateral Lung location: lower lobe of lung Qualified Code(s): J18.9 - Pneumonia, unspecified organism Is this a current diagnosis for this admission?: Yes Plan: I am less concerned about pneumonia as atelectasis. WBC are normal and the patient is afebrile. She denies dyspnea, orthopnea, and cough. Blood cultures: No growth (final) Will encourage turn/cough/deep breath and incentive spirometry hourly while awake. - Time Time Spent with patient: 25-34 minutes Medications reviewed and adjusted accordingly: Yes Anticipated discharge: Hospice
[2017-12-09] MEDS: NORMAL SALINE 1000 ML 1,000 ML with POTASSIUM CHLORIDE 20 MEQ, MAGNESIUM SULFATE 8 MEQ,... IV SCH ×5 (17:38)
[2017-12-09] MEDS: PHARMACY COMMUNICATION ORDER MC SCH (22:19)
[2017-12-10] MEDS: PROMETHAZINE HCL INJ 25 MG/1 ML VIAL IV PRN ×2 (00:08→04:55)
[2017-12-10] MEDS: HYDROMORPHONE HCL INJ/PF 2 MG/ML AMPULE IV PRN (04:54)
[2017-12-10] MEDS: OXYCODONE HCL IR 5 MG TABLET PO SCH ×6 (04:57→21:32)
[2017-12-10 05:46] LABS: HEMATOCRIT 33.8 % (36.0-47.0); MEAN CORPUSCULAR HEMOGLOBIN 26.6 pg (27.0-33.4); MEAN CORPUSCULAR HGB CONC 32.5 g/dL (32.0-36.0); MEAN CORPUSCULAR VOLUME 82 fl (80-97); PLATELET COUNT 302 10^3/uL (150-450); RED BLOOD COUNT 4.14 10^6/uL (3.72-5.28); WHITE BLOOD COUNT 10.8 10^3/uL (4.0-10.5)
[2017-12-10 06:05] LABS: ALBUMIN 1.7 g/dL (3.5-5.0); BLOOD UREA NITROGEN 8 mg/dL (7-20); CALCIUM 7.3 mg/dL (8.4-10.2); CHLORIDE 98 mmol/L (98-107); GLUCOSE 84 mg/dL (75-110)
[2017-12-10] MEDS: HEPARIN SOD (PORCINE) 5,000 UNIT/ML 1 ML SYRINGE SUBCUT SCH ×3 (06:14→21:32)
[2017-12-10 06:25] LABS: CARBON DIOXIDE 28 mmol/L (22-30); SODIUM 129.7 mmol/L (137-145)
[2017-12-10 06:34] LABS: ANION GAP 4 (5-19)
--- NOTE | 2017-12-10 08:01 | PDOC PROGRESS REPORT ---
Subjective Progress Note for:: 12/10/17 Subjective:: Patient was admitted for right acetabular fracture with protrusio secondary to pathologic bone process. Continues to complain of pain being controlled with Dilaudid and fentanyl but currently patient lying in bed comfortably. No issues overnight. Reason For Visit: RIGHT HIP FRACTURE Physical Exam Vital Signs: Temp Pulse Resp BP Pulse Ox 98.2 F 127 H 16 98/49 L 94 12/09/17 23:09 12/09/17 23:09 12/09/17 23:09 12/09/17 23:09 12/09/17 23:09 Intake & Output 12/09/17 12/10/17 12/11/17 06:59 06:59 06:59 Intake Total 720 2405 Output Total 1000 1800 Balance -280 605 Weight 72.7 kg 71.8 kg Musculoskeletal exam: PRESENT: other - Right lower extremity: Intact plantar flexion/dorsiflexion. Positive logroll. Calf nontender. Negative Homans. Dorsalis pedis pulse 2+. Results Laboratory Results: 12/10/17 04:40 12/10/17 04:40 12/09/17 12/09/17 12/10/17 07:54 07:54 04:40 WBC 10.9 H 10.8 H RBC 4.31 4.14 Hgb 11.3 L 11.0 L Hct 34.7 L 33.8 L MCV 81 82 MCH 26.1 L 26.6 L MCHC 32.4 32.5 RDW 20.4 H 20.0 H Plt Count 298 302 Sodium 128.3 L Potassium 3.5 L Chloride 96 L Carbon Dioxide 28 Anion Gap 4 L BUN 7 Creatinine 0.48 L Est GFR ( Amer) > 60 Est GFR (Non-Af Amer) > 60 Glucose 97 Calcium 7.2 L Magnesium Albumin 12/10/17 04:40 WBC RBC Hgb Hct MCV MCH MCHC RDW Plt Count Sodium 129.7 L Potassium 4.0 Chloride 98 Carbon Dioxide 28 Anion Gap 4 L BUN 8 Creatinine 0.52 Est GFR ( Amer) > 60 Est GFR (Non-Af Amer) > 60 Glucose 84 Calcium 7.3 L Magnesium 1.9 Albumin 1.7 L Impressions: Hip/Pelvis X-Ray 12/01/17 17:53 IMPRESSION: Medial wall right acetabular fracture with protrusion of the femoral head into the bony pelvis Chest CT 12/01/17 19:16 IMPRESSION: ALTHOUGH THERE HAS BEEN INTERVAL IMPROVEMENT OF MEDIASTINAL AND HILAR LYMPHADENOPATHY WELL DOMINANT MASS RIGHT SUPRAHILAR LUNG AND RIGHT UPPER LOBE THERE HAS BEEN INTERVAL DEVELOPMENT OF NEW WILL ENLARGING PULMONARY NODULES/MASSES COMPATIBLE WITH OVERALL PROGRESSION OF METASTATIC LUNG CANCER. NEW BILATERAL LOWER LOBE AIRSPACE DISEASE SUSPICIOUS FOR PNEUMONIA. CORRELATE WITH FEVER/ELEVATED WHITE BLOOD CELL COUNT. Head CT 12/01/17 19:16 IMPRESSION: MILD CHRONIC CHANGES OF ATROPHY AND MICROVASCULAR ISCHEMIA. PARANASAL SINUS DISEASE. NO ACUTE INTRACRANIAL PROCESS. EVIDENCE OF ACUTE STROKE: NO. Abdomen/Pelvis CT 12/04/17 00:00 IMPRESSION: 1. There is evidence of multiple bilateral pulmonary masses consistent with metastatic disease. Bibasilar infiltrate and effusions. Fatty infiltration liver. Status post cholecystectomy. Pathological fracture of right hip and acetabulum. Expansile lytic lesion left ilium at the SI joint. Possible lytic change left ischium. These findings are compatible with changes of metastatic carcinoma of the lung by history Assessment & Plan - Diagnosis (1) Right acetabular fracture Qualifiers: Encounter type: subsequent encounter Sublocation of acetabulum: medial wall Fracture type: closed Fracture alignment: displaced Is this a current diagnosis for this admission?: Yes Plan: Patient has evidence of pathologic fracture with protrusio of the acetabulum. Current plan is to proceed with reconstruction of the right acetabulum on .
[2017-12-10] MEDS: RINGERS SOLUTION,LACTATED 1,000 ML IV PRN ×2 (09:10→16:07)
[2017-12-10] MEDS: CALCIUM CARBONATE 500 MG TABLET PO SCH (10:33)
[2017-12-10] MEDS: LORATADINE 10 MG TABLET PO SCH (10:35)
[2017-12-10] MEDS: POTASSIUM CHLORIDE 20 MEQ/15 ML UDCUP PO SCH (10:35)
[2017-12-10] MEDS: HYDROCORTISONE 0.5% CREAM 28.35 GM TP SCH ×2 (10:35→18:02)
[2017-12-10] MEDS: LIDOCAINE 5% (700 MG) TRANSDERMAL ADH..PATCH TP SCH ×2 (10:35→22:00)
[2017-12-10] MEDS ORDERED: KETOROLAC TROMETHAMINE INJ/PF 30 MG/1 ML SDV ONE (11:03)
[2017-12-10] MEDS ORDERED: KETOROLAC TROMETHAMINE INJ/PF 30 MG/1 ML SDV IV ONE (11:15)
--- NOTE | 2017-12-10 11:34 | RADIOLOGY REPORT (SQ) ---
EXAM DESCRIPTION: CHEST SINGLE VIEW COMPLETED DATE/TIME: 12/10/2017 11:18 am REASON FOR STUDY: recent pneumonia-preop COMPARISON: 12/01/2017 EXAM PARAMETERS: NUMBER OF VIEWS: One view. TECHNIQUE: Single frontal radiographic view of the chest acquired. RADIATION DOSE: NA LIMITATIONS: None. FINDINGS: LUNGS AND PLEURA: Bilateral pleural effusions persist. Minimal opacities. Multiple pulmo nary nodules. MEDIASTINUM AND HILAR STRUCTURES: No masses. Contour normal. HEART AND VASCULAR STRUCTURES: Heart normal in size. Normal vasculature. BONES: No acute findings. HARDWARE: None in the chest. OTHER: No other significant finding. IMPRESSION: Persistent basilar opacities and effusions suspicious for pneumonia. Multiple pulmonary nodules. TECHNICAL DOCUMENTATION: JOB ID: [id number] All Rights Reserved Reading location - IP/workstation name: [email or web address]
--- NOTE | 2017-12-10 13:45 | PDOC PROGRESS REPORT ---
Subjective Progress Note for:: 12/10/17 Subjective:: The patient is a 77 year old female with PMH significant for Lung CA with bone metastasis, COPD, and arthritis who was admitted on 12/01/27 with intractable pain secondary to a right acetabular fracture and UTI. The patient is seen on morning rounds; she is found resting in bed on supplemental oxygen at 2 L/min. She is sleeping when I enter the room but does wake easily when I state her name. She states that her pain is well controlled at present she is looking forward to her hip repair tomorrow. She denies fever/chills, chest pain, palpitations, dyspnea, cough, abd pain, nausea/vomiting, diarrhea and constipation. Reason For Visit: RIGHT HIP FRACTURE Physical Exam Vital Signs: Temp Pulse Resp BP Pulse Ox 98.6 F 95 16 86/50 L 94 12/10/17 11:23 12/10/17 11:23 12/10/17 11:23 12/10/17 11:23 12/10/17 11:23 Intake & Output 12/09/17 12/10/17 12/11/17 06:59 06:59 06:59 Intake Total 720 2405 Output Total 1000 1800 Balance -280 605 Weight 72.7 kg 71.8 kg General appearance: PRESENT: no acute distress, well-developed, well-nourished Head exam: PRESENT: atraumatic, normocephalic Eye exam: PRESENT: conjunctiva pink, EOMI, PERRLA. ABSENT: scleral icterus Ear exam: PRESENT: normal external ear exam Mouth exam: PRESENT: moist, tongue midline Neck exam: ABSENT: carotid bruit, JVD, lymphadenopathy, thyromegaly Respiratory exam: PRESENT: clear to auscultation mehdi, decreased breath sounds - Bibasilar, symmetrical, unlabored. ABSENT: rales, rhonchi, wheezes Cardiovascular exam: PRESENT: RRR, +S1, +S2. ABSENT: diastolic murmur, rubs, systolic murmur Pulses: PRESENT: normal dorsalis pedis pul Vascular exam: PRESENT: normal capillary refill GI/Abdominal exam: PRESENT: normal bowel sounds, soft. ABSENT: distended, guarding, mass, organolmegaly, rebound, tenderness Rectal exam: PRESENT: deferred Extremities exam: ABSENT: calf tenderness, clubbing, full ROM - Limited secondary to right acetabular fracture, pedal edema Neurological exam: PRESENT: alert, awake, oriented to person, oriented to place , oriented to time, oriented to situation, CN II-XII grossly intact. ABSENT: motor sensory deficit Psychiatric exam: PRESENT: appropriate affect, normal mood. ABSENT: homicidal ideation, suicidal ideation Skin exam: PRESENT: dry, intact, warm. ABSENT: cyanosis, rash Results Laboratory Results: 12/10/17 04:40 12/10/17 04:40 12/10/17 12/10/17 04:40 04:40 WBC 10.8 H RBC 4.14 Hgb 11.0 L Hct 33.8 L MCV 82 MCH 26.6 L MCHC 32.5 RDW 20.0 H Plt Count 302 Sodium 129.7 L Potassium 4.0 Chloride 98 Carbon Dioxide 28 Anion Gap 4 L BUN 8 Creatinine 0.52 Est GFR ( Amer) > 60 Est GFR (Non-Af Amer) > 60 Glucose 84 Calcium 7.3 L Magnesium 1.9 Albumin 1.7 L Impressions: Hip/Pelvis X-Ray 12/01/17 17:53 IMPRESSION: Medial wall right acetabular fracture with protrusion of the femoral head into the bony pelvis Chest CT 12/01/17 19:16 IMPRESSION: ALTHOUGH THERE HAS BEEN INTERVAL IMPROVEMENT OF MEDIASTINAL AND HILAR LYMPHADENOPATHY WELL DOMINANT MASS RIGHT SUPRAHILAR LUNG AND RIGHT UPPER LOBE THERE HAS BEEN INTERVAL DEVELOPMENT OF NEW WILL ENLARGING PULMONARY NODULES/MASSES COMPATIBLE WITH OVERALL PROGRESSION OF METASTATIC LUNG CANCER. NEW BILATERAL LOWER LOBE AIRSPACE DISEASE SUSPICIOUS FOR PNEUMONIA. CORRELATE WITH FEVER/ELEVATED WHITE BLOOD CELL COUNT. Head CT 12/01/17 19:16 IMPRESSION: MILD CHRONIC CHANGES OF ATROPHY AND MICROVASCULAR ISCHEMIA. PARANASAL SINUS DISEASE. NO ACUTE INTRACRANIAL PROCESS. EVIDENCE OF ACUTE STROKE: NO. Abdomen/Pelvis CT 12/04/17 00:00 IMPRESSION: 1. There is evidence of multiple bilateral pulmonary masses consistent with metastatic disease. Bibasilar infiltrate and effusions. Fatty infiltration liver. Status post cholecystectomy. Pathological fracture of right hip and acetabulum. Expansile lytic lesion left ilium at the SI joint. Possible lytic change left ischium. These findings are compatible with changes of metastatic carcinoma of the lung by history Chest X-Ray 12/10/17 00:00 IMPRESSION: Persistent basilar opacities and effusions suspicious for pneumonia. Multiple pulmonary nodules. Assessment & Plan - Diagnosis (1) Right acetabular fracture Qualifiers: Encounter type: subsequent encounter Sublocation of acetabulum: medial wall Fracture type: closed Fracture alignment: displaced Is this a current diagnosis for this admission?: Yes Plan: Primary plan per orthopedics; plan for surgery once hardware has been delivered. The patient is being scheduled for the OR tomorrow. (2) UTI (urinary tract infection) Qualifiers: Urinary tract infection type: acute cystitis Hematuria presence: without hematuria Qualified Code(s): N30.00 - Acute cystitis without hematuria Is this a current diagnosis for this admission?: Yes Plan: Resolved. Urine culture: E. coli, Klebsiella Blood culture: No growth (final) Appropriately treated with a full course of ciprofloxacin. (Patient initially received Zosyn and vancomycin). We will monitor for recurrence of symptoms. (3) Hypocalcemia Is this a current diagnosis for this admission?: Yes Plan: Improved; corrected calcium is 9.14 Continue calcium supplementation. We will continue to monitor. (4) Hypokalemia Is this a current diagnosis for this admission?: Yes Plan: Improved. Daily banana bag. Potassium chloride 10 mEq p.o. daily. We will monitor closely and continue to replace as needed. (5) Hyponatremia Is this a current diagnosis for this admission?: Yes Plan: Stable; likely related to poor p.o. intake. Will continue to monitor. (6) Intractable pain Is this a current diagnosis for this admission?: Yes Plan: Unfortunately, the hospital is on back order of both IV Dilaudid and morphine. We will continue Duragesic patch 75 mcg. Continue scheduled oxycodone 15 mg every 4 hours; anticipate that this can be decreased or discontinued following hip repair scheduled for Monday. We will try IV Toradol 30 mg every 6 hours for breakthrough pain. Patient did well with Toradol this morning. Continue Lidocain patches. Encourage nonpharmacological interventions: position changes/pillow support, heat pad, etc. (7) Lung cancer metastatic to bone Is this a current diagnosis for this admission?: Yes Plan: Unfortunately she is not a candidate for further chemoradiation. She will be transferred to an inpatient hospice facility at discharge. Appreciate discharge planning's assistance in making arrangements. (8) Pneumonia Qualifiers: Pneumonia type: due to unspecified organism Laterality: bilateral Lung location: lower lobe of lung Qualified Code(s): J18.9 - Pneumonia, unspecified organism Is this a current diagnosis for this admission?: Yes Plan: Concern for pneumonia versus atelectasis in patient with known lung cancer. WBCs are up slightly to 10.8 today. The patient remains afebrile and denies dyspnea, orthopnea, and cough. Preop chest x-ray today demonstrates persistent basilar opacities and effusion suspicious for pneumonia. Blood cultures: No growth (final) We will repeat blood cultures while patient is off antibiotics. Low threshold for treatment of healthcare associated pneumonia. Will encourage turn/cough/deep breath and incentive spirometry hourly while awake. - Time Time Spent with patient: 25-34 minutes Medications reviewed and adjusted accordingly: Yes Anticipated discharge: Hospice - Inpatient Certification Medical Necessity: Need for Pain Control, Need for Surgery
[2017-12-10 14:27] LABS: INTERNATIONAL RATION (INR) 1.07; PROTHROMBIN TIME 14.6 SEC (11.4-15.4)
--- NOTE | 2017-12-10 15:39 | EKG REPORT ---
SEVERITY:- ABNORMAL ECG - SINUS TACHYCARDIA ATRIAL PREMATURE COMPLEXES INCOMPLETE RIGHT BUNDLE BRANCH BLOCK LOW VOLTAGE IN FRONTAL LEADS : Confirmed by: Regino Kern MD 10-Dec-2017 15:38:52
[2017-12-10] MEDS: NORMAL SALINE 1000 ML 1,000 ML with POTASSIUM CHLORIDE 20 MEQ, MAGNESIUM SULFATE 8 MEQ,... IV SCH ×5 (18:00)
[2017-12-10] MEDS: KETOROLAC TROMETHAMINE INJ/PF 30 MG/1 ML SDV IV PRN ×2 (18:02→23:59)
[2017-12-10] MEDS: PHARMACY COMMUNICATION ORDER MC SCH (21:33)
[2017-12-11] MEDS: OXYCODONE HCL IR 5 MG TABLET PO SCH ×4 (02:32→14:00)
[2017-12-11] MEDS ORDERED: TRANEXAMIC ACID INJ/PF 1,000 MG/10 ML SDV IV PRN (05:00)
[2017-12-11] MEDS ORDERED: VANCOMYCIN HCL 1,000 MG in DEXTROSE 5%-WATER 250 ML IV PRN (05:00)
[2017-12-11] MEDS: HEPARIN SOD (PORCINE) 5,000 UNIT/ML 1 ML SYRINGE SUBCUT SCH ×3 (05:38→20:58)
[2017-12-11 06:23] LABS: HEMATOCRIT 34.6 % (36.0-47.0); MEAN CORPUSCULAR HEMOGLOBIN 26.1 pg (27.0-33.4); MEAN CORPUSCULAR HGB CONC 31.7 g/dL (32.0-36.0); MEAN CORPUSCULAR VOLUME 82 fl (80-97); PLATELET COUNT 284 10^3/uL (150-450); RED CELL DISTRIBUTION WIDTH 21.3 % (11.5-14.0); WHITE BLOOD COUNT 12.2 10^3/uL (4.0-10.5)
[2017-12-11 06:43] LABS: BLOOD UREA NITROGEN 12 mg/dL (7-20); CALCIUM 7.6 mg/dL (8.4-10.2); CHLORIDE 100 mmol/L (98-107); GLUCOSE 81 mg/dL (75-110); POTASSIUM 4.6 mmol/L (3.6-5.0)
[2017-12-11 06:58] LABS: CARBON DIOXIDE 27 mmol/L (22-30); SODIUM 130.3 mmol/L (137-145)
[2017-12-11 07:01] LABS: ANION GAP 3 (5-19)
--- NOTE | 2017-12-11 08:13 | PDOC PROGRESS REPORT ---
Subjective Progress Note for:: 12/11/17 Subjective:: Surgery time is 11am per nursing, is stable this am Reason For Visit: RIGHT HIP FRACTURE Physical Exam Vital Signs: Temp Pulse Resp BP Pulse Ox 97.6 F 99 15 92/50 L 93 12/10/17 23:36 12/10/17 23:36 12/10/17 23:36 12/10/17 23:36 12/10/17 23:36 Intake & Output 12/10/17 12/11/17 12/12/17 06:59 06:59 06:59 Intake Total 2405 3967 Output Total 1800 800 Balance 605 3167 Weight 71.8 kg 72.3 kg General appearance: PRESENT: no acute distress, well-developed, well-nourished Head exam: PRESENT: atraumatic, normocephalic Eye exam: PRESENT: conjunctiva pink, EOMI, PERRLA. ABSENT: scleral icterus Ear exam: PRESENT: normal external ear exam Mouth exam: PRESENT: moist, tongue midline Neck exam: ABSENT: carotid bruit, JVD, lymphadenopathy, thyromegaly Respiratory exam: PRESENT: clear to auscultation mehdi. ABSENT: rales, rhonchi, wheezes Cardiovascular exam: PRESENT: RRR. ABSENT: diastolic murmur, rubs, systolic murmur Pulses: PRESENT: normal dorsalis pedis pul Vascular exam: PRESENT: normal capillary refill GI/Abdominal exam: PRESENT: normal bowel sounds, soft. ABSENT: distended, guarding, mass, organolmegaly, rebound, tenderness Rectal exam: PRESENT: deferred Extremities exam: PRESENT: full ROM. ABSENT: calf tenderness, clubbing, pedal edema Neurological exam: PRESENT: alert, awake, oriented to person, oriented to place , oriented to time, oriented to situation, CN II-XII grossly intact. ABSENT: motor sensory deficit Psychiatric exam: PRESENT: appropriate affect, normal mood. ABSENT: homicidal ideation, suicidal ideation Skin exam: PRESENT: dry, intact, warm. ABSENT: cyanosis, rash Results Laboratory Results: 12/11/17 05:45 12/11/17 05:45 12/10/17 12/11/17 12/11/17 14:00 05:45 05:45 WBC 12.2 H RBC 4.20 Hgb 11.0 L Hct 34.6 L MCV 82 MCH 26.1 L MCHC 31.7 L RDW 21.3 H Plt Count 284 Sodium 130.3 L Potassium 4.6 Chloride 100 Carbon Dioxide 27 Anion Gap 3 L BUN 12 Creatinine 0.60 Est GFR ( Amer) > 60 Est GFR (Non-Af Amer) > 60 Glucose 81 Calcium 7.6 L Blood Type AB POSITIVE Antibody Screen NEGATIVE Impressions: Hip/Pelvis X-Ray 12/01/17 17:53 IMPRESSION: Medial wall right acetabular fracture with protrusion of the femoral head into the bony pelvis Chest CT 12/01/17 19:16 IMPRESSION: ALTHOUGH THERE HAS BEEN INTERVAL IMPROVEMENT OF MEDIASTINAL AND HILAR LYMPHADENOPATHY WELL DOMINANT MASS RIGHT SUPRAHILAR LUNG AND RIGHT UPPER LOBE THERE HAS BEEN INTERVAL DEVELOPMENT OF NEW WILL ENLARGING PULMONARY NODULES/MASSES COMPATIBLE WITH OVERALL PROGRESSION OF METASTATIC LUNG CANCER. NEW BILATERAL LOWER LOBE AIRSPACE DISEASE SUSPICIOUS FOR PNEUMONIA. CORRELATE WITH FEVER/ELEVATED WHITE BLOOD CELL COUNT. Head CT 12/01/17 19:16 IMPRESSION: MILD CHRONIC CHANGES OF ATROPHY AND MICROVASCULAR ISCHEMIA. PARANASAL SINUS DISEASE. NO ACUTE INTRACRANIAL PROCESS. EVIDENCE OF ACUTE STROKE: NO. Abdomen/Pelvis CT 12/04/17 00:00 IMPRESSION: 1. There is evidence of multiple bilateral pulmonary masses consistent with metastatic disease. Bibasilar infiltrate and effusions. Fatty infiltration liver. Status post cholecystectomy. Pathological fracture of right hip and acetabulum. Expansile lytic lesion left ilium at the SI joint. Possible lytic change left ischium. These findings are compatible with changes of metastatic carcinoma of the lung by history Chest X-Ray 12/10/17 00:00 IMPRESSION: Persistent basilar opacities and effusions suspicious for pneumonia. Multiple pulmonary nodules. Assessment & Plan - Diagnosis (1) Right acetabular fracture Qualifiers: Encounter type: subsequent encounter Sublocation of acetabulum: medial wall Fracture type: closed Fracture alignment: displaced Is this a current diagnosis for this admission?: Yes Plan: Will have surgery this am, will follow (2) Lung cancer metastatic to bone Is this a current diagnosis for this admission?: Yes Plan: Will follow up post surgery
[2017-12-11] MEDS: HYDROCORTISONE 0.5% CREAM 28.35 GM TP SCH ×2 (09:51→18:07)
[2017-12-11] MEDS: CALCIUM CARBONATE 500 MG TABLET PO SCH (09:56)
[2017-12-11] MEDS: POTASSIUM CHLORIDE 20 MEQ/15 ML UDCUP PO SCH (09:56)
[2017-12-11] MEDS: LORATADINE 10 MG TABLET PO SCH (09:56)
[2017-12-11] MEDS ORDERED: BUPIVACAINE INJ/PF LIPOSOME/PF 266 MG/20 ML SDV ONE (10:04)
[2017-12-11] MEDS ORDERED: THROMBIN (BOVINE) 5000 UNIT EPITAXIS KIT ONE (10:04)
[2017-12-11] MEDS ORDERED: THROMBIN (BOVINE) TOPICAL 20000 UNIT VIAL ONE (10:04)
[2017-12-11] MEDS ORDERED: LIDOCAINE 2% INJ-PF (20 MG/ML) 10 ML AMPUL ONE (10:27)
[2017-12-11] MEDS ORDERED: FENTANYL CITRATE INJ/PF 100 MCG/2 ML AMPUL ONE ×2 (10:27→14:32)
[2017-12-11] MEDS ORDERED: EPHEDRINE SULFATE INJ 50 MG/1 ML AMPULE ONE (10:28)
[2017-12-11] MEDS ORDERED: PROPOFOL INJ 200 MG/20 ML VIAL IV ONE (10:28)
[2017-12-11] MEDS ORDERED: TRANEXAMIC ACID INJ/PF 1,000 MG/10 ML SDV IV ONE (10:28)
[2017-12-11] MEDS ORDERED: MIDAZOLAM 2 MG/2 ML INJ ONE (10:28)
[2017-12-11] MEDS ORDERED: BUPIVACAINE HCL/DEX-WATER/PF 15 MG/2 ML AMPULE ONE (10:44)
[2017-12-11] MEDS ORDERED: KETAMINE HCL INJ 500 MG/10 ML VIAL ONE (11:21)
[2017-12-11] MEDS ORDERED: BUPIVACAINE HCL/DEX-WATER/PF 15 MG/2 ML AMPULE INJ ONE (11:30)
[2017-12-11] MEDS ORDERED: VANCOMYCIN HCL INJ 1000 MG VIAL ONE (12:19)
[2017-12-11] MEDS ORDERED: MORPHINE SULFATE 10 MG/ML INJ IV PRN (12:55)
[2017-12-11] MEDS ORDERED: FENTANYL CITRATE INJ/PF 100 MCG/2 ML AMPUL IV PRN ×3 (12:55)
[2017-12-11] MEDS ORDERED: ONDANSETRON HCL INJ/PF 4 MG/2 ML SDV IV PRN (12:55)
[2017-12-11] MEDS ORDERED: DIPHENHYDRAMINE HCL 50 MG/ML VIAL IV PRN (12:55)
[2017-12-11] MEDS ORDERED: PROMETHAZINE HCL INJ 25 MG/1 ML VIAL IV PRN ×2 (12:55)
[2017-12-11] MEDS ORDERED: OXYCODONE-ACETAMINOPHEN 5-325 MG TABLET PO PRN ×2 (12:55)
[2017-12-11] MEDS ORDERED: MEPERIDINE HCL/PF INJ 25 MG/1 ML DISP.SYRIN IV PRN (12:55)
[2017-12-11] MEDS ORDERED: ACETAMINOPHEN 325 MG TABLET PO PRN (13:14)
[2017-12-11] MEDS ORDERED: ONDANSETRON 4 MG TAB.RAPDIS PO PRN (13:14)
[2017-12-11] MEDS ORDERED: OXYCODONE HCL IR 5 MG TABLET PO PRN (13:14)
[2017-12-11] MEDS ORDERED: RINGERS SOLUTION,LACTATED 1,000 ML IV PRN (13:14)
[2017-12-11] MEDS ORDERED: ONDANSETRON HCL 8 MG TABLET PO PRN (13:14)
[2017-12-11] MEDS ORDERED: PROCHLORPERAZINE MALEATE 10 MG TABLET PO PRN (13:14)
--- NOTE | 2017-12-11 13:14 | Operative Report ---
Operative Report DATE OF SURGERY: 12/11/17 PREOPERATIVE DIAGNOSIS: Right acetabular fracture with protrusio. Metastatic lung carcinoma OPERATION: Right hip arthroplasty. ORIF right acetabulum. Sciatic neural lysis SURGEON: BRONSON LAI ANESTHESIA: Spinal TISSUE REMOVED OR ALTERED: Bone and soft tissue to pathology ESTIMATED BLOOD LOSS: 100 PROCEDURE: With the patient in a left lateral decubitus position on the operating table the right lower extremity hindquarter prepped and draped in sterile fashion. A curvilinear incision made over the greater trochanter posterior approach the hip was taken. Sciatic nerve is identified in the sciatic notch and traced down to the gluteal sling. Is protected throughout this length throughout the remainder of the case. The hip is dislocated and the femoral neck transected using an oscillating saw. The femur is then retracted anteriorly exposing underlying acetabulum. Soft tissues cleared off the osteotomy using a knife. There is a large central defect as well as superior rim defect. There is reasonable anterior bone and reasonable ischial tuberosity. The acetabulum was then reamed using a 56 mm reamer which is a small a size Biomet cages available. The femoral head that was transected is then morselized and packed into the acetabular defect with the reamer on reverse to is packed into place. Subsequently a Biomet max T hip system 3 flange right porous plasma acetabular shell is molded to adapt to the existing acetabular defect. Secured with one screw anteriorly, one screw superiorly, and 2 screws posteriorly thus bridging the acetabular fracture. Attention is now turned to the femur. Excess skin femoral canal using a box osteotome through the piriformis fossa. The femur was repaired using a series of broaches for the [employer] size 5 cemented long stem implant. A trial reduction of the implant is performed and this is adequate. The implant is removed. The femoral canal is irrigated with pulse lavage. Polymethylmethacrylate containing vancomycin is then mixed and used to cement the longstem implant in place. Attention returns to the acetabulum. A [employer] X3 size E 36 mm polyethylene insert is abraded on the backside to create roughening to accept cement fixation. Poly-methylmethacrylate with vancomycin is in mixed and introduced into the acetabular shell was pressurized using a bulb syringe. Subsequently the at the polyethylene liner is impacted into the cement mantle in a position approximating 15 of anteversion 45 of abduction. The cement mantle is allowed to cure. Trial reduction was then performed with increasing neck length until a 36 mm head +5 neck is trialed is felt to provide adequate soft tissue tension. The hip is dislocated the final 36 moment of chrome cobalt head +5 neck extension is impacted onto the trunnion. The hip is reduced. There was rios care with pulse with pulse lavage. The wound is then closed in layers using interrupted Vicryl followed by phil. A sterile compressive dressing is applied and the patient's return to the PACU in satisfactory condition.
--- NOTE | 2017-12-11 14:18 | PDOC PROGRESS REPORT ---
Subjective Progress Note for:: 12/11/17 Subjective:: The patient is a 77 year old female with PMH significant for Lung CA with bone metastasis, COPD, and arthritis who was admitted on 12/01/27 with intractable pain secondary to a right acetabular fracture and UTI. The patient is seen on morning rounds with her daughter present; she is found resting in bed on supplemental oxygen at 2 L/min. She denies pain at this time. She states that she looking forward to her orthopedic surgery scheduled for 11:00 this morning. She is hopeful that her pain is better controlled after this. Did have a long discussion with the patient and her daughter regarding discharge plan. At this time they are planning to be discharged to the inpatient [facility] in [facility]. She denies fever/chills, chest pain, palpitations, dyspnea, cough, abd pain, nausea/vomiting, diarrhea and constipation. They have no other questions or concerns at this time. Reason For Visit: RIGHT ACETABULAR FRACTURE Physical Exam Vital Signs: Temp Pulse Resp BP Pulse Ox 97.8 F 78 16 98/46 L 93 12/11/17 09:56 12/11/17 09:56 12/11/17 09:56 12/11/17 09:56 12/11/17 09:56 Intake & Output 12/10/17 12/11/17 12/12/17 06:59 06:59 06:59 Intake Total 2405 3967 1950 Output Total 3770 440 8558 Balance 605 3167 0 Weight 71.8 kg 72.3 kg General appearance: PRESENT: no acute distress, cooperative, well-developed, well-nourished Head exam: PRESENT: atraumatic, normocephalic Eye exam: PRESENT: conjunctiva pink, EOMI, PERRLA. ABSENT: scleral icterus Ear exam: PRESENT: normal external ear exam Mouth exam: PRESENT: moist, tongue midline Neck exam: ABSENT: carotid bruit, JVD, lymphadenopathy, thyromegaly Respiratory exam: PRESENT: clear to auscultation mehdi, decreased breath sounds - Bibasilar, symmetrical, unlabored, other - Supplemental oxygen at 2 L per min. ABSENT: rales, rhonchi, wheezes Cardiovascular exam: PRESENT: RRR, +S1, +S2. ABSENT: diastolic murmur, rubs, systolic murmur Pulses: PRESENT: normal dorsalis pedis pul Vascular exam: PRESENT: normal capillary refill GI/Abdominal exam: PRESENT: normal bowel sounds, soft. ABSENT: distended, guarding, mass, organolmegaly, rebound, tenderness Rectal exam: PRESENT: deferred Extremities exam: ABSENT: calf tenderness, clubbing, full ROM - Right acetabular fracture, pedal edema Neurological exam: PRESENT: alert, awake, oriented to person, oriented to place , oriented to time, oriented to situation, CN II-XII grossly intact. ABSENT: motor sensory deficit Psychiatric exam: PRESENT: appropriate affect, normal mood. ABSENT: homicidal ideation, suicidal ideation Skin exam: PRESENT: dry, intact, warm. ABSENT: cyanosis, rash Results Laboratory Results: 12/11/17 05:45 12/11/17 05:45 12/10/17 12/11/17 12/11/17 14:00 05:45 05:45 WBC 12.2 H RBC 4.20 Hgb 11.0 L Hct 34.6 L MCV 82 MCH 26.1 L MCHC 31.7 L RDW 21.3 H Plt Count 284 Sodium 130.3 L Potassium 4.6 Chloride 100 Carbon Dioxide 27 Anion Gap 3 L BUN 12 Creatinine 0.60 Est GFR ( Amer) > 60 Est GFR (Non-Af Amer) > 60 Glucose 81 Calcium 7.6 L Blood Type AB POSITIVE Antibody Screen NEGATIVE Impressions: Hip/Pelvis X-Ray 12/01/17 17:53 IMPRESSION: Medial wall right acetabular fracture with protrusion of the femoral head into the bony pelvis Chest CT 12/01/17 19:16 IMPRESSION: ALTHOUGH THERE HAS BEEN INTERVAL IMPROVEMENT OF MEDIASTINAL AND HILAR LYMPHADENOPATHY WELL DOMINANT MASS RIGHT SUPRAHILAR LUNG AND RIGHT UPPER LOBE THERE HAS BEEN INTERVAL DEVELOPMENT OF NEW WILL ENLARGING PULMONARY NODULES/MASSES COMPATIBLE WITH OVERALL PROGRESSION OF METASTATIC LUNG CANCER. NEW BILATERAL LOWER LOBE AIRSPACE DISEASE SUSPICIOUS FOR PNEUMONIA. CORRELATE WITH FEVER/ELEVATED WHITE BLOOD CELL COUNT. Head CT 12/01/17 19:16 IMPRESSION: MILD CHRONIC CHANGES OF ATROPHY AND MICROVASCULAR ISCHEMIA. PARANASAL SINUS DISEASE. NO ACUTE INTRACRANIAL PROCESS. EVIDENCE OF ACUTE STROKE: NO. Abdomen/Pelvis CT 12/04/17 00:00 IMPRESSION: 1. There is evidence of multiple bilateral pulmonary masses consistent with metastatic disease. Bibasilar infiltrate and effusions. Fatty infiltration liver. Status post cholecystectomy. Pathological fracture of right hip and acetabulum. Expansile lytic lesion left ilium at the SI joint. Possible lytic change left ischium. These findings are compatible with changes of metastatic carcinoma of the lung by history Chest X-Ray 12/10/17 00:00 IMPRESSION: Persistent basilar opacities and effusions suspicious for pneumonia. Multiple pulmonary nodules. Assessment & Plan - Diagnosis (1) Right acetabular fracture Qualifiers: Encounter type: subsequent encounter Sublocation of acetabulum: medial wall Fracture type: closed Fracture alignment: displaced Is this a current diagnosis for this admission?: Yes Plan: Primary plan per orthopedics; plan to go to the OR with Dr. Prescott today. (2) Hypocalcemia Is this a current diagnosis for this admission?: Yes Plan: Improved; corrected calcium is 9.4 Continue calcium supplementation. We will continue to monitor. (3) Hypokalemia Is this a current diagnosis for this admission?: Yes Plan: Resolved. Daily banana bag. Potassium chloride 10 mEq p.o. daily. We will monitor closely and continue to replace as needed. (4) Hyponatremia Is this a current diagnosis for this admission?: Yes Plan: Stable; likely related to poor p.o. intake. Will continue to monitor. (5) Intractable pain Is this a current diagnosis for this admission?: Yes Plan: Unfortunately, the hospital is on back order of both IV Dilaudid and morphine. Duragesic patch increased to 100 mcg postoperatively by orthopedics. Will be placed on OxyContin 20 mg twice daily 2 days following surgery. We will decrease oxycodone to 10 mg every 4 hours as needed and anticipate that this can be further decreased or discontinued following hip repair scheduled for today. Continue Lidocain patches. Encourage nonpharmacological interventions: position changes/pillow support, heat pad, etc. (6) Lung cancer metastatic to bone Is this a current diagnosis for this admission?: Yes Plan: Unfortunately she is not a candidate for further chemoradiation. She will be transferred to an inpatient hospice facility at discharge; bed offer from [facility] has been made. Appreciate discharge planning's assistance in making arrangements. (7) Pneumonia Qualifiers: Pneumonia type: due to unspecified organism Laterality: bilateral Lung location: lower lobe of lung Qualified Code(s): J18.9 - Pneumonia, unspecified organism Is this a current diagnosis for this admission?: Yes Plan: Concern for pneumonia versus atelectasis in patient with known lung cancer. WBCs continue to trend up. The patient remains afebrile and denies dyspnea, orthopnea, and cough. Preop chest x-ray today demonstrates persistent basilar opacities and effusion suspicious for pneumonia. Blood cultures: No growth (final) Repeat blood cultures (12/10/17): Pending Low threshold for treatment of healthcare associated pneumonia. Will encourage turn/cough/deep breath and incentive spirometry hourly while awake. (8) UTI (urinary tract infection) Qualifiers: Urinary tract infection type: acute cystitis Hematuria presence: without hematuria Qualified Code(s): N30.00 - Acute cystitis without hematuria Is this a current diagnosis for this admission?: Yes Plan: Resolved. Urine culture: E. coli, Klebsiella Blood culture: No growth (final) Appropriately treated with a full course of ciprofloxacin. (Patient initially received Zosyn and vancomycin). We will monitor for recurrence of symptoms. - Time Time Spent with patient: 35 or more minutes Medications reviewed and adjusted accordingly: Yes Anticipated discharge: Hospice Within: Other - Once cleared by Ortho
[2017-12-11] MEDS ORDERED: HYDROMORPHONE HCL 2 MG TABLET PO PRN (14:29)
--- NOTE | 2017-12-11 14:32 | RADIOLOGY REPORT (SQ) ---
EXAM DESCRIPTION: PELVIS AP COMPLETED DATE/TIME: 12/11/2017 2:19 pm REASON FOR STUDY: Post Op Long Cassette in PACU COMPARISON: 12/01/2017. NUMBER OF VIEWS: One view TECHNIQUE: Digital radiographic images of the pelvis post-procedure LIMITATIONS: None. FINDINGS: BONES: No worrisome or unexpected findings post-procedure. DEVICE: Hip prosthesis with repair of the acetabulum. SOFT TISSUES: No worrisome findings. Expected postoperative soft tissue changes. IMPRESSION: SATISFACTORY POSTOPERATIVE PELVIS. TECHNICAL DOCUMENTATION: JOB ID: [id number] [employer]- All Rights Reserved Reading location - IP/workstation name: [email or web address]
[2017-12-11] MEDS ORDERED: ASPIRIN 81 MG TABLET, ENT COATED PO ONE (15:00)
[2017-12-11] MEDS: KETOROLAC TROMETHAMINE INJ/PF 30 MG/1 ML SDV IV PRN (15:15)
[2017-12-11] MEDS ORDERED: FENTANYL 100 MCG/HR PATCH.TD72 TOP SCH (16:00)
[2017-12-11] MEDS: OXYCODONE HCL IR 5 MG TABLET PO PRN ×2 (16:23→22:23)
[2017-12-11] MEDS ORDERED: FENTANYL 100 MCG/HR PATCH.TD72 TOP ONE (17:00)
[2017-12-11] MEDS: NORMAL SALINE 1000 ML 1,000 ML with POTASSIUM CHLORIDE 20 MEQ, MAGNESIUM SULFATE 8 MEQ,... IV SCH ×5 (17:05)
[2017-12-11] MEDS ORDERED: LIDOCAINE 5% (700 MG) TRANSDERMAL ADH..PATCH TP ONE (17:45)
[2017-12-11] MEDS ORDERED: HYDROMORPHONE HCL 2 MG TABLET PO ONE (18:15)
[2017-12-11] MEDS: OXYCODONE HCL SR 10 MG TABLET PO SCH (20:55)
[2017-12-11] MEDS: LANSOPRAZOLE 15 MG TAB.RAP.DR PO SCH (20:55)
[2017-12-11] MEDS: PHARMACY COMMUNICATION ORDER MC SCH (21:10)
[2017-12-12] MEDS ORDERED: VANCOMYCIN HCL 1,000 MG in DEXTROSE 5%-WATER 250 ML IV ONE (01:00)
[2017-12-12] MEDS: OXYCODONE HCL IR 5 MG TABLET PO PRN ×2 (03:23→07:39)
[2017-12-12] MEDS ORDERED: NORMAL SALINE 1000 ML 1,000 ML IV PRN (03:39)
[2017-12-12] MEDS: HEPARIN SOD (PORCINE) 5,000 UNIT/ML 1 ML SYRINGE SUBCUT SCH ×3 (06:10→22:50)
[2017-12-12] MEDS: LANSOPRAZOLE 30 MG TAB.RAP.DR PO SCH (06:10)
[2017-12-12 06:12] LABS: HEMATOCRIT 31.2 % (36.0-47.0); HEMOGLOBIN 10.2 g/dL (12.0-15.5); MEAN CORPUSCULAR HEMOGLOBIN 26.7 pg (27.0-33.4); MEAN CORPUSCULAR HGB CONC 32.6 g/dL (32.0-36.0); MEAN CORPUSCULAR VOLUME 82 fl (80-97); PLATELET COUNT 251 10^3/uL (150-450); RED BLOOD COUNT 3.81 10^6/uL (3.72-5.28); RED CELL DISTRIBUTION WIDTH 21.7 % (11.5-14.0); WHITE BLOOD COUNT 10.1 10^3/uL (4.0-10.5)
[2017-12-12 06:35] LABS: BLOOD UREA NITROGEN 16 mg/dL (7-20); CALCIUM 7.1 mg/dL (8.4-10.2); CARBON DIOXIDE 27 mmol/L (22-30); CHLORIDE 98 mmol/L (98-107); GLUCOSE 94 mg/dL (75-110); POTASSIUM 5.2 mmol/L (3.6-5.0); SODIUM 128.6 mmol/L (137-145)
[2017-12-12 06:37] LABS: ANION GAP 4 (5-19)
--- NOTE | 2017-12-12 06:51 | PDOC PROGRESS REPORT ---
Subjective Progress Note for:: 12/12/17 Subjective:: Patient continues to have significant pain and is very apprehensive of any passive motions of the right lower extremity which cause inguinal pain. Reason For Visit: RIGHT ACETABULAR FRACTURE 77-year-old white female with pathologic fracture right acetabulum postop day 1 from a hip reconstruction. Physical Exam Vital Signs: Temp Pulse Resp BP Pulse Ox 36.6 C 104 H 13 102/53 L 95 12/12/17 04:00 12/12/17 04:00 12/12/17 04:00 12/12/17 04:00 12/12/17 04:00 Intake & Output 12/10/17 12/11/17 12/12/17 06:59 06:59 06:59 Intake Total 2405 3967 5005 Output Total 8090 405 0165 Balance 605 3167 2445 Weight 71.8 kg 72.3 kg 72.3 kg General appearance: PRESENT: mild distress Head exam: PRESENT: normocephalic Respiratory exam: PRESENT: unlabored Cardiovascular exam: PRESENT: RRR Pulses: PRESENT: +1 pedal pulses bilateral Vascular exam: PRESENT: normal capillary refill GI/Abdominal exam: PRESENT: soft Rectal exam: PRESENT: deferred Extremities exam: PRESENT: other - Right hip wound with serous drainage. Leg lengths are equal. Considerable edema throughout the extremity similar to the contralateral extremity. Distal neurovascular examination is intact. Musculoskeletal exam: PRESENT: other - Passive range of motion of the right lower extremity even in terms of internal/external rotation gently causes significant inguinal pain. Neurological exam: PRESENT: alert, awake, oriented to person, oriented to place , oriented to time, oriented to situation. ABSENT: motor sensory deficit Psychiatric exam: PRESENT: anxious Skin exam: PRESENT: other - Diffuse edema and erythematous eruption consistent with a Loly infection Results Laboratory Results: 12/12/17 05:41 12/12/17 05:41 12/11/17 12/12/17 12/12/17 05:45 05:41 05:41 WBC 10.1 RBC 3.81 Hgb 10.2 L Hct 31.2 L MCV 82 MCH 26.7 L MCHC 32.6 RDW 21.7 H Plt Count 251 Sodium 130.3 L 128.6 L Potassium 4.6 5.2 H Chloride 100 98 Carbon Dioxide 27 27 Anion Gap 3 L 4 L BUN 12 16 Creatinine 0.60 0.63 Est GFR ( Amer) > 60 > 60 Est GFR (Non-Af Amer) > 60 > 60 Glucose 81 94 Calcium 7.6 L 7.1 L Impressions: Hip/Pelvis X-Ray 12/01/17 17:53 IMPRESSION: Medial wall right acetabular fracture with protrusion of the femoral head into the bony pelvis Chest CT 12/01/17 19:16 IMPRESSION: ALTHOUGH THERE HAS BEEN INTERVAL IMPROVEMENT OF MEDIASTINAL AND HILAR LYMPHADENOPATHY WELL DOMINANT MASS RIGHT SUPRAHILAR LUNG AND RIGHT UPPER LOBE THERE HAS BEEN INTERVAL DEVELOPMENT OF NEW WILL ENLARGING PULMONARY NODULES/MASSES COMPATIBLE WITH OVERALL PROGRESSION OF METASTATIC LUNG CANCER. NEW BILATERAL LOWER LOBE AIRSPACE DISEASE SUSPICIOUS FOR PNEUMONIA. CORRELATE WITH FEVER/ELEVATED WHITE BLOOD CELL COUNT. Head CT 12/01/17 19:16 IMPRESSION: MILD CHRONIC CHANGES OF ATROPHY AND MICROVASCULAR ISCHEMIA. PARANASAL SINUS DISEASE. NO ACUTE INTRACRANIAL PROCESS. EVIDENCE OF ACUTE STROKE: NO. Abdomen/Pelvis CT 12/04/17 00:00 IMPRESSION: 1. There is evidence of multiple bilateral pulmonary masses consistent with metastatic disease. Bibasilar infiltrate and effusions. Fatty infiltration liver. Status post cholecystectomy. Pathological fracture of right hip and acetabulum. Expansile lytic lesion left ilium at the SI joint. Possible lytic change left ischium. These findings are compatible with changes of metastatic carcinoma of the lung by history Chest X-Ray 12/10/17 00:00 IMPRESSION: Persistent basilar opacities and effusions suspicious for pneumonia. Multiple pulmonary nodules. Pelvis X-Ray 12/11/17 13:18 IMPRESSION: SATISFACTORY POSTOPERATIVE PELVIS. Status: Imported from PACS Assessment & Plan - Diagnosis (1) Right acetabular fracture Qualifiers: Encounter type: subsequent encounter Sublocation of acetabulum: medial wall Fracture type: closed Fracture alignment: displaced Is this a current diagnosis for this admission?: Yes Plan: Postop day 1 status post right hip reconstruction. Tentative plan will be to mobilize the patient gently. Posterior hip precautions to be maintained. If this is problematic in abduction pillow can be ordered. Dressings can be changed on a as needed basis based on the serous drainage. Laboratory evaluation this morning is pending. - Time Time Spent with patient: 15-24 minutes Anticipated discharge: Other Within: Other
[2017-12-12] MEDS ORDERED: (PENDING PHARMACY ID) (Dronabinol [Marinol] 5 MG) PO SCH (08:00)
[2017-12-12] MEDS ORDERED: DRONABINOL 2.5 MG CAPSULE PO SCH (08:00)
[2017-12-12] MEDS ORDERED: PHENYLEPHRINE HCL INJ/PF 10 MG/1 ML SDV ONE (08:22)
--- NOTE | 2017-12-12 08:57 | PDOC PROGRESS REPORT ---
Subjective Progress Note for:: 12/12/17 Subjective:: Patient still having considerable pain this morning, today had a long discussion with patient, discussed her case with her daughter Chantelle, and discussed her case with discharge planning Susan, the plan was for her to go to [facility] but she really requires physical therapy to get her up and moving around, if that can happen in a hospice setting she could go to that setting, however if that can happen on a hospice setting she really needs SNF placement with acute rehab, she then could go through acute rehab and then transition thereafter upon discharge to a hospice setting. Reason For Visit: RIGHT ACETABULAR FRACTURE Physical Exam Vital Signs: Temp Pulse Resp BP Pulse Ox 97.9 F 104 H 13 102/53 L 95 12/12/17 04:00 12/12/17 04:00 12/12/17 04:00 12/12/17 04:00 12/12/17 04:00 Intake & Output 12/11/17 12/12/17 12/13/17 06:59 06:59 06:59 Intake Total 3967 5005 Output Total 800 2760 Balance 3167 2245 Weight 72.3 kg 72.3 kg General appearance: PRESENT: no acute distress, well-developed, well-nourished Head exam: PRESENT: atraumatic, normocephalic Eye exam: PRESENT: conjunctiva pink, EOMI, PERRLA. ABSENT: scleral icterus Ear exam: PRESENT: normal external ear exam Mouth exam: PRESENT: moist, tongue midline Neck exam: ABSENT: carotid bruit, JVD, lymphadenopathy, thyromegaly Respiratory exam: PRESENT: clear to auscultation mehdi. ABSENT: rales, rhonchi, wheezes Cardiovascular exam: PRESENT: RRR. ABSENT: diastolic murmur, rubs, systolic murmur Pulses: PRESENT: normal dorsalis pedis pul Vascular exam: PRESENT: normal capillary refill GI/Abdominal exam: PRESENT: normal bowel sounds, soft. ABSENT: distended, guarding, mass, organolmegaly, rebound, tenderness Rectal exam: PRESENT: deferred Extremities exam: PRESENT: full ROM. ABSENT: calf tenderness, clubbing, pedal edema Neurological exam: PRESENT: alert, awake, oriented to person, oriented to place , oriented to time, oriented to situation, CN II-XII grossly intact. ABSENT: motor sensory deficit Psychiatric exam: PRESENT: appropriate affect, normal mood. ABSENT: homicidal ideation, suicidal ideation Skin exam: PRESENT: dry, intact, warm. ABSENT: cyanosis, rash Results Laboratory Results: 12/12/17 05:41 12/12/17 05:41 12/12/17 12/12/17 05:41 05:41 WBC 10.1 RBC 3.81 Hgb 10.2 L Hct 31.2 L MCV 82 MCH 26.7 L MCHC 32.6 RDW 21.7 H Plt Count 251 Sodium 128.6 L Potassium 5.2 H Chloride 98 Carbon Dioxide 27 Anion Gap 4 L BUN 16 Creatinine 0.63 Est GFR ( Amer) > 60 Est GFR (Non-Af Amer) > 60 Glucose 94 Calcium 7.1 L Impressions: Hip/Pelvis X-Ray 12/01/17 17:53 IMPRESSION: Medial wall right acetabular fracture with protrusion of the femoral head into the bony pelvis Chest CT 12/01/17 19:16 IMPRESSION: ALTHOUGH THERE HAS BEEN INTERVAL IMPROVEMENT OF MEDIASTINAL AND HILAR LYMPHADENOPATHY WELL DOMINANT MASS RIGHT SUPRAHILAR LUNG AND RIGHT UPPER LOBE THERE HAS BEEN INTERVAL DEVELOPMENT OF NEW WILL ENLARGING PULMONARY NODULES/MASSES COMPATIBLE WITH OVERALL PROGRESSION OF METASTATIC LUNG CANCER. NEW BILATERAL LOWER LOBE AIRSPACE DISEASE SUSPICIOUS FOR PNEUMONIA. CORRELATE WITH FEVER/ELEVATED WHITE BLOOD CELL COUNT. Head CT 12/01/17 19:16 IMPRESSION: MILD CHRONIC CHANGES OF ATROPHY AND MICROVASCULAR ISCHEMIA. PARANASAL SINUS DISEASE. NO ACUTE INTRACRANIAL PROCESS. EVIDENCE OF ACUTE STROKE: NO. Abdomen/Pelvis CT 12/04/17 00:00 IMPRESSION: 1. There is evidence of multiple bilateral pulmonary masses consistent with metastatic disease. Bibasilar infiltrate and effusions. Fatty infiltration liver. Status post cholecystectomy. Pathological fracture of right hip and acetabulum. Expansile lytic lesion left ilium at the SI joint. Possible lytic change left ischium. These findings are compatible with changes of metastatic carcinoma of the lung by history Chest X-Ray 12/10/17 00:00 IMPRESSION: Persistent basilar opacities and effusions suspicious for pneumonia. Multiple pulmonary nodules. Pelvis X-Ray 12/11/17 13:18 IMPRESSION: SATISFACTORY POSTOPERATIVE PELVIS. Assessment & Plan - Diagnosis (1) Right acetabular fracture Qualifiers: Encounter type: subsequent encounter Sublocation of acetabulum: medial wall Fracture type: closed Fracture alignment: displaced Is this a current diagnosis for this admission?: Yes Plan: Status post repair, for the pain today we will increase her oxycodone, schedule it, tomorrow I will increase her fentanyl patch, she is continued on OxyContin as well and I will probably discontinue that tomorrow as long as pain control is appropriate. 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 - Time Time Spent with patient: 35 or more minutes - Inpatient Certification Based on my medical assessment, after consideration of the patient's comorbidities, presenting symptoms, or acuity I expect that the services needed warrant INPATIENT care.: Yes I certify that my determination is in accordance with my understanding of Medicare's requirements for reasonable and necessary INPATIENT services [42 CFR 412.3e].: Yes Medical Necessity: Need for Pain Control, Need for Surgery, Risk of Complication if Not Cared For in Hospital
[2017-12-12] MEDS ORDERED: (PENDING PHARMACY ID) (Potassium Chloride [Klor-Con M20] 20 MEQ) PO SCH (10:00)
[2017-12-12] MEDS: OXYCODONE HCL IR 5 MG TABLET PO SCH ×5 (10:09→22:37)
[2017-12-12] MEDS: LORATADINE 10 MG TABLET PO SCH (10:10)
[2017-12-12] MEDS: CALCIUM CARBONATE 500 MG TABLET PO SCH (10:10)
[2017-12-12] MEDS: OXYCODONE HCL SR 10 MG TABLET PO SCH ×2 (10:10→22:50)
[2017-12-12] MEDS: ASPIRIN 81 MG TABLET, ENT COATED PO SCH (10:10)
[2017-12-12] MEDS: POTASSIUM CHLORIDE 10 MEQ TABLET.SA PO SCH (10:11)
[2017-12-12] MEDS: TIOTROPIUM BROMIDE DPI 5 CAP/KIT (18 MCG/CAP) IH SCH (10:11)
[2017-12-12] MEDS: LIDOCAINE 5% (700 MG) TRANSDERMAL ADH..PATCH TP SCH (11:18)
--- NOTE | 2017-12-12 11:18 | RADIOLOGY REPORT (SQ) ---
EXAM DESCRIPTION: PICC INSERTION; U/S GUIDE FOR VASCULAR ACCESS; FLUORO/CV PLACEMENT COMPLETED DATE/TIME: 12/12/2017 11:05 am REASON FOR STUDY: no iv access. ; IV NO ACCESS; NO IV ACCESS COMPARISON: None. FLUOROSCOPY TIME: 7 seconds 3 images saved to PACS. TECHNIQUE: Fluoroscopic and ultrasound guided PICC placement. LIMITATIONS: None. PROCEDURE: After written consent and assessment were obtained, the patient was brought into the fluo roscopy room and place supine on the table. Ultrasound was used on the patient's right arm for PICC access. The right arm was prepped and draped in a sterile fashion along with the ultrasound probe. Th e entry site was anesthetized with 1% lidocaine. A 21 gauge 7 cm needle was advanced through the skin and into the basilic vein under live ultrasound guidance. An ultrasound image was saved to PACS con firming access site. A .018 guide wire was then inserted through the needle and into the venous syst em. The needle was the removed and an 11 blade scalpel was used to make a 1cm skin incision. A 5 fr peel-away sheath was advanced over the wire and into the venous system. A measurement was then made u sing the existing wire and live fluoroscopic guidance. The wire was then removed and the trimmed. The PICC was advanced through the peel-away sheath and into the venous system. The peel-away sheath was removed and the catheter was adhered to the patients arm with a stat lock. The catheter was then aspi rated and flushed and a sterile bandage was placed over the access site. A fluoroscopic spot image w as saved to PACS confirming the catheter tip within the superior vena cava. IMPRESSION: SUCCESSFUL PLACEMENT OF A 5 FR DUAL LUMEN 34 CM PICC IN THE RIGHT BASILIC VEIN. COMMENT: Patient medication list reviewed: Yes- Quality ID# [id number]:Eligible professional attests to doc umenting in the medical record they obtained, updated, or reviewed the patient's current medications. . Quality ID 145: Final reports for procedures using fluoroscopy that document radiation exposure yamileth chance, or exposure time and number of fluorographic images (if radiation exposure indices are not avail able) Quality ID #76: The patient was prepped and draped using maximum sterile barrier technique including cap, mask, sterile gown, sterile gloves, a large sterile sheet, hand hygiene, and 2% Chlorhexidine fo r cutaneous antisepsis. When ultrasound is used, sterile ultrasound techniques are followed requiring sterile gel and sterile probes. TECHNICAL DOCUMENTATION: JOB ID: [id number] [employer]- All Rights Reserved Reading location - IP/workstation name: [email or web address]
[2017-12-12] MEDS: ALBUMIN HUMAN 50 ML IV SCH ×2 (12:49→13:47)
[2017-12-12] MEDS ORDERED: NALOXONE HCL INJ/PF 0.4 MG/1 ML SDV IV PRN (12:57)
[2017-12-12] MEDS ORDERED: NORMAL SALINE 10 ML SDV (AFTER EACH USE) IV PRN (15:48)
[2017-12-12] MEDS ORDERED: NYSTATIN TOPICAL POWDER 15 GM TP PRN (17:21)
[2017-12-12] MEDS: NORMAL SALINE 1000 ML 1,000 ML with POTASSIUM CHLORIDE 20 MEQ, MAGNESIUM SULFATE 8 MEQ,... IV SCH ×5 (17:36)
--- NOTE | 2017-12-12 20:16 | PDOC PROGRESS REPORT ---
Subjective Progress Note for:: 12/12/17 Subjective:: ANUP OLIVEROS is a 77-year-old female who presented to the emergency department with R acetabular fracture. She is now POD1 acetabular fracture repair. The patient was seen on morning rounds, she was drowsy but awake during conversation. She is oriented, and participatory in care. At the time of my assessment the patient stated that she was in no pain, and was happy about her decision to have surgery because it significantly decreased the amount of pain that she was in. Reason For Visit: RIGHT ACETABULAR FRACTURE Physical Exam Vital Signs: Temp Pulse Resp BP Pulse Ox 97.7 F 96 16 93/43 L 97 12/12/17 15:42 12/12/17 15:42 12/12/17 15:42 12/12/17 15:42 12/12/17 15:42 Intake & Output 12/11/17 12/12/17 12/13/17 06:59 06:59 06:59 Intake Total 3967 5005 1060 Output Total 800 2760 225 Balance 3167 2245 835 Weight 72.3 kg 72.3 kg General appearance: PRESENT: no acute distress Head exam: PRESENT: atraumatic Eye exam: PRESENT: conjunctiva pink Mouth exam: PRESENT: dry mucosa Teeth exam: PRESENT: poor dentation Neck exam: PRESENT: full ROM Respiratory exam: PRESENT: clear to auscultation mehdi Cardiovascular exam: PRESENT: +S1, +S2 Pulses: PRESENT: normal radial pulses, +1 pedal pulses bilateral Vascular exam: PRESENT: normal capillary refill GI/Abdominal exam: PRESENT: normal bowel sounds Rectal exam: PRESENT: deferred Extremities exam: PRESENT: pedal edema, +1 edema Musculoskeletal exam: PRESENT: deformity - Right hip Neurological exam: PRESENT: alert, altered, awake, oriented to person, oriented to place, oriented to time, oriented to situation Results Laboratory Results: 12/12/17 05:41 12/12/17 05:41 12/12/17 12/12/17 05:41 05:41 WBC 10.1 RBC 3.81 Hgb 10.2 L Hct 31.2 L MCV 82 MCH 26.7 L MCHC 32.6 RDW 21.7 H Plt Count 251 Sodium 128.6 L Potassium 5.2 H Chloride 98 Carbon Dioxide 27 Anion Gap 4 L BUN 16 Creatinine 0.63 Est GFR ( Amer) > 60 Est GFR (Non-Af Amer) > 60 Glucose 94 Calcium 7.1 L Impressions: Hip/Pelvis X-Ray 12/01/17 17:53 IMPRESSION: Medial wall right acetabular fracture with protrusion of the femoral head into the bony pelvis Chest CT 12/01/17 19:16 IMPRESSION: ALTHOUGH THERE HAS BEEN INTERVAL IMPROVEMENT OF MEDIASTINAL AND HILAR LYMPHADENOPATHY WELL DOMINANT MASS RIGHT SUPRAHILAR LUNG AND RIGHT UPPER LOBE THERE HAS BEEN INTERVAL DEVELOPMENT OF NEW WILL ENLARGING PULMONARY NODULES/MASSES COMPATIBLE WITH OVERALL PROGRESSION OF METASTATIC LUNG CANCER. NEW BILATERAL LOWER LOBE AIRSPACE DISEASE SUSPICIOUS FOR PNEUMONIA. CORRELATE WITH FEVER/ELEVATED WHITE BLOOD CELL COUNT. Head CT 12/01/17 19:16 IMPRESSION: MILD CHRONIC CHANGES OF ATROPHY AND MICROVASCULAR ISCHEMIA. PARANASAL SINUS DISEASE. NO ACUTE INTRACRANIAL PROCESS. EVIDENCE OF ACUTE STROKE: NO. Abdomen/Pelvis CT 12/04/17 00:00 IMPRESSION: 1. There is evidence of multiple bilateral pulmonary masses consistent with metastatic disease. Bibasilar infiltrate and effusions. Fatty infiltration liver. Status post cholecystectomy. Pathological fracture of right hip and acetabulum. Expansile lytic lesion left ilium at the SI joint. Possible lytic change left ischium. These findings are compatible with changes of metastatic carcinoma of the lung by history Chest X-Ray 12/10/17 00:00 IMPRESSION: Persistent basilar opacities and effusions suspicious for pneumonia. Multiple pulmonary nodules. Pelvis X-Ray 12/11/17 13:18 IMPRESSION: SATISFACTORY POSTOPERATIVE PELVIS. Guidance Fluoroscopy 12/12/17 00:00 IMPRESSION: SUCCESSFUL PLACEMENT OF A 5 FR DUAL LUMEN 34 CM PICC IN THE RIGHT BASILIC VEIN. Interventional Vascular Procedure 12/12/17 00:00 IMPRESSION: SUCCESSFUL PLACEMENT OF A 5 FR DUAL LUMEN 34 CM PICC IN THE RIGHT BASILIC VEIN. PICC Line Insertion 12/12/17 08:23 IMPRESSION: SUCCESSFUL PLACEMENT OF A 5 FR DUAL LUMEN 34 CM PICC IN THE RIGHT BASILIC VEIN. Status: Imported from PACS Assessment & Plan - Diagnosis (1) Right acetabular fracture Qualifiers: Encounter type: subsequent encounter Sublocation of acetabulum: medial wall Fracture type: closed Fracture alignment: displaced Is this a current diagnosis for this admission?: Yes Plan: Pathological fracture unchanged from 11/03/2017. The case was discussed with orthopedics, and oncology (Dr. Gomez). CT chest/abd/pelvis shows progression of her disease despite being on chemotherapy and radiation. POD1 acetabular fracture repair done by Dr. Prescott. No ROM in RLE, but adequate flexion and extension of the right foot, +PMS, pain regimen was increased this morning by Dr. Gomez. 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 The plan is to transfer her to an inpatient hospice facility with physical therapy. Appreciate discharge planning for assistance in making arrangements. (3) UTI (urinary tract infection) Qualifiers: Urinary tract infection type: acute cystitis Hematuria presence: without hematuria Qualified Code(s): N30.00 - Acute cystitis without hematuria Is this a current diagnosis for this admission?: Yes Plan: Resolved. Completed full course of ciprofloxacin for E. coli and Klebsiella in urine. Monitor for recurrence of symptoms. (4) Pneumonia Qualifiers: Pneumonia type: due to unspecified organism Laterality: bilateral Lung location: lower lobe of lung Qualified Code(s): J18.9 - Pneumonia, unspecified organism Is this a current diagnosis for this admission?: Yes Plan: Questionable bilateral lower lobe PNA seen on chest CTA. Patient was initially covered with vancomycin and Zosyn, which has since been discontinued. Preop chest x-ray demonstrates persistent bibasilar opacities and effusions suspicion for pneumonia. Low threshold for treatment of healthcare associated pneumonia. Encourage turn, cough, deep breath with incentive spirometry while awake (5) Intractable pain Is this a current diagnosis for this admission?: Yes Plan: Pain regimen was increased by Dr. Gomez, now on scheduled oxycodone as well as OxyContin. Dosage of fentanyl patch was also increased today. Patient states her pain is well controlled (6) Edema Is this a current diagnosis for this admission?: Yes Plan: Generalized edema likely due to 3rd spacing from poor nutrition and overall immobility. Creatinine 0.6. The patient was given 25G Albumin IV to help mobilize third spaced fluid, as well as improve urine output. Per nursing staff, urine output picked up to approx. 50mL/hr. Continue to monitor. Consider another bolus of albumin given the amount of edema and her albumin level of 1.3. Additionally, increased protein in PO diet to assist with low total protein and low albumin level - Time Time Spent with patient: 15-24 minutes Medications reviewed and adjusted accordingly: Yes - Inpatient Certification Based on my medical assessment, after consideration of the patient's comorbidities, presenting symptoms, or acuity I expect that the services needed warrant INPATIENT care.: Yes I certify that my determination is in accordance with my understanding of Medicare's requirements for reasonable and necessary INPATIENT services [42 CFR 412.3e].: Yes Medical Necessity: Risk of Complication if Not Cared For in Hospital - Plan Summary Plan Summary: Discharge to [facility] with physical therapy
[2017-12-12] MEDS: NORMAL SALINE 10 ML SDV (SCHEDULED) IV SCH (22:50)
[2017-12-12] MEDS: LANSOPRAZOLE 15 MG TAB.RAP.DR PO SCH (22:50)
[2017-12-12] MEDS: PHARMACY COMMUNICATION ORDER MC SCH (22:51)
[2017-12-13] MEDS: OXYCODONE HCL IR 5 MG TABLET PO SCH ×8 (00:15→22:21)
[2017-12-13] MEDS: HEPARIN SOD (PORCINE) 5,000 UNIT/ML 1 ML SYRINGE SUBCUT SCH ×3 (05:43→22:26)
[2017-12-13 05:44] LABS: HEMATOCRIT 26.6 % (36.0-47.0); HEMOGLOBIN 8.8 g/dL (12.0-15.5); MEAN CORPUSCULAR HEMOGLOBIN 26.9 pg (27.0-33.4); MEAN CORPUSCULAR VOLUME 81 fl (80-97); PLATELET COUNT 255 10^3/uL (150-450); RED BLOOD COUNT 3.27 10^6/uL (3.72-5.28); RED CELL DISTRIBUTION WIDTH 21.1 % (11.5-14.0); WHITE BLOOD COUNT 10.7 10^3/uL (4.0-10.5)
[2017-12-13] MEDS: LANSOPRAZOLE 30 MG TAB.RAP.DR PO SCH (05:44)
--- NOTE | 2017-12-13 06:59 | PDOC PROGRESS REPORT ---
Subjective Progress Note for:: 12/13/17 Reason For Visit: RIGHT ACETABULAR FRACTURE 77-year-old white female with pathologic fracture the right acetabulum now postop day 2 from a reconstruction. She is much more alert and animated this morning. Continues to complain of pain with motion of the right lower extremity. Physical Exam Vital Signs: Temp Pulse Resp BP Pulse Ox 36.7 C 96 12 104/49 L 93 12/12/17 23:15 12/12/17 23:15 12/12/17 23:15 12/12/17 23:15 12/12/17 23:15 Intake & Output 12/11/17 12/12/17 12/13/17 06:59 06:59 06:59 Intake Total 3967 5005 2180 Output Total 800 2760 365 Balance 3167 2245 1815 Weight 72.3 kg 72.3 kg 79 kg General appearance: PRESENT: mild distress Head exam: PRESENT: normocephalic Respiratory exam: PRESENT: unlabored Cardiovascular exam: PRESENT: RRR Pulses: PRESENT: +1 pedal pulses bilateral Vascular exam: PRESENT: normal capillary refill GI/Abdominal exam: PRESENT: soft Rectal exam: PRESENT: deferred Extremities exam: PRESENT: other - Lower extremity edema persists. Right hip dressing with some serous drainage. Leg lengths are equal. Neurological exam: PRESENT: alert, awake, oriented to person, oriented to place , oriented to time, oriented to situation Results Laboratory Results: 12/13/17 05:35 12/12/17 05:41 12/13/17 05:35 WBC 10.7 H RBC 3.27 L Hgb 8.8 L Hct 26.6 L MCV 81 MCH 26.9 L MCHC 33.0 RDW 21.1 H Plt Count 255 Impressions: Hip/Pelvis X-Ray 12/01/17 17:53 IMPRESSION: Medial wall right acetabular fracture with protrusion of the femoral head into the bony pelvis Chest CT 12/01/17 19:16 IMPRESSION: ALTHOUGH THERE HAS BEEN INTERVAL IMPROVEMENT OF MEDIASTINAL AND HILAR LYMPHADENOPATHY WELL DOMINANT MASS RIGHT SUPRAHILAR LUNG AND RIGHT UPPER LOBE THERE HAS BEEN INTERVAL DEVELOPMENT OF NEW WILL ENLARGING PULMONARY NODULES/MASSES COMPATIBLE WITH OVERALL PROGRESSION OF METASTATIC LUNG CANCER. NEW BILATERAL LOWER LOBE AIRSPACE DISEASE SUSPICIOUS FOR PNEUMONIA. CORRELATE WITH FEVER/ELEVATED WHITE BLOOD CELL COUNT. Head CT 12/01/17 19:16 IMPRESSION: MILD CHRONIC CHANGES OF ATROPHY AND MICROVASCULAR ISCHEMIA. PARANASAL SINUS DISEASE. NO ACUTE INTRACRANIAL PROCESS. EVIDENCE OF ACUTE STROKE: NO. Abdomen/Pelvis CT 12/04/17 00:00 IMPRESSION: 1. There is evidence of multiple bilateral pulmonary masses consistent with metastatic disease. Bibasilar infiltrate and effusions. Fatty infiltration liver. Status post cholecystectomy. Pathological fracture of right hip and acetabulum. Expansile lytic lesion left ilium at the SI joint. Possible lytic change left ischium. These findings are compatible with changes of metastatic carcinoma of the lung by history Chest X-Ray 12/10/17 00:00 IMPRESSION: Persistent basilar opacities and effusions suspicious for pneumonia. Multiple pulmonary nodules. Pelvis X-Ray 12/11/17 13:18 IMPRESSION: SATISFACTORY POSTOPERATIVE PELVIS. Guidance Fluoroscopy 12/12/17 00:00 IMPRESSION: SUCCESSFUL PLACEMENT OF A 5 FR DUAL LUMEN 34 CM PICC IN THE RIGHT BASILIC VEIN. Interventional Vascular Procedure 12/12/17 00:00 IMPRESSION: SUCCESSFUL PLACEMENT OF A 5 FR DUAL LUMEN 34 CM PICC IN THE RIGHT BASILIC VEIN. PICC Line Insertion 12/12/17 08:23 IMPRESSION: SUCCESSFUL PLACEMENT OF A 5 FR DUAL LUMEN 34 CM PICC IN THE RIGHT BASILIC VEIN. Status: Imported from PACS Assessment & Plan - Diagnosis (1) Right acetabular fracture Qualifiers: Encounter type: subsequent encounter Sublocation of acetabulum: medial wall Fracture type: closed Fracture alignment: displaced Is this a current diagnosis for this admission?: Yes Plan: 77-year-old white female status post right hip reconstruction. Plan for out of bed to chair today. - Time Time Spent with patient: 15-24 minutes Anticipated discharge: SNF Within: Other
[2017-12-13] MEDS ORDERED: OXYCODONE HCL IR 5 MG TABLET PO ONE (07:15)
[2017-12-13] MEDS ORDERED: PHARMACY COMMUNICATION ORDER MC ONE (08:45)
--- NOTE | 2017-12-13 08:53 | PDOC PROGRESS REPORT ---
Subjective Progress Note for:: 12/13/17 Subjective:: Patient still with considerable pain, had a long discussion with the buyer planner, as expected [facility] offer physical therapy and rehabilitation along with inpatient hospice, therefore we need to consider SNF plus rehab, she would be best served doing this in [place] or in [place] as her daughter lives in [place], so they are trying to do this now. We are adjusting pain medication today. She still has quite a bit of pain. She has not gotten up yet with physical therapy, so I told the nurse that she has to get up with physical therapy today. Reason For Visit: RIGHT ACETABULAR FRACTURE Physical Exam Vital Signs: Temp Pulse Resp BP Pulse Ox 98.0 F 96 12 104/49 L 93 12/12/17 23:15 12/12/17 23:15 12/12/17 23:15 12/12/17 23:15 12/12/17 23:15 Intake & Output 12/12/17 12/13/17 12/14/17 06:59 06:59 06:59 Intake Total 5005 2180 Output Total 2760 365 Balance 2245 1815 Weight 72.3 kg 79 kg General appearance: PRESENT: no acute distress, well-developed, well-nourished Head exam: PRESENT: atraumatic, normocephalic Eye exam: PRESENT: conjunctiva pink, EOMI, PERRLA. ABSENT: scleral icterus Ear exam: PRESENT: normal external ear exam Mouth exam: PRESENT: moist, tongue midline Neck exam: ABSENT: carotid bruit, JVD, lymphadenopathy, thyromegaly Respiratory exam: PRESENT: clear to auscultation mehdi. ABSENT: rales, rhonchi, wheezes Cardiovascular exam: PRESENT: RRR. ABSENT: diastolic murmur, rubs, systolic murmur Pulses: PRESENT: normal dorsalis pedis pul Vascular exam: PRESENT: normal capillary refill GI/Abdominal exam: PRESENT: normal bowel sounds, soft. ABSENT: distended, guarding, mass, organolmegaly, rebound, tenderness Rectal exam: PRESENT: deferred Extremities exam: PRESENT: full ROM. ABSENT: calf tenderness, clubbing, pedal edema Neurological exam: PRESENT: alert, awake, oriented to person, oriented to place , oriented to time, oriented to situation, CN II-XII grossly intact. ABSENT: motor sensory deficit Psychiatric exam: PRESENT: appropriate affect, normal mood. ABSENT: homicidal ideation, suicidal ideation Skin exam: PRESENT: dry, intact, warm. ABSENT: cyanosis, rash Results Laboratory Results: 12/13/17 05:35 12/12/17 05:41 12/13/17 05:35 WBC 10.7 H RBC 3.27 L Hgb 8.8 L Hct 26.6 L MCV 81 MCH 26.9 L MCHC 33.0 RDW 21.1 H Plt Count 255 Impressions: Hip/Pelvis X-Ray 12/01/17 17:53 IMPRESSION: Medial wall right acetabular fracture with protrusion of the femoral head into the bony pelvis Chest CT 12/01/17 19:16 IMPRESSION: ALTHOUGH THERE HAS BEEN INTERVAL IMPROVEMENT OF MEDIASTINAL AND HILAR LYMPHADENOPATHY WELL DOMINANT MASS RIGHT SUPRAHILAR LUNG AND RIGHT UPPER LOBE THERE HAS BEEN INTERVAL DEVELOPMENT OF NEW WILL ENLARGING PULMONARY NODULES/MASSES COMPATIBLE WITH OVERALL PROGRESSION OF METASTATIC LUNG CANCER. NEW BILATERAL LOWER LOBE AIRSPACE DISEASE SUSPICIOUS FOR PNEUMONIA. CORRELATE WITH FEVER/ELEVATED WHITE BLOOD CELL COUNT. Head CT 12/01/17 19:16 IMPRESSION: MILD CHRONIC CHANGES OF ATROPHY AND MICROVASCULAR ISCHEMIA. PARANASAL SINUS DISEASE. NO ACUTE INTRACRANIAL PROCESS. EVIDENCE OF ACUTE STROKE: NO. Abdomen/Pelvis CT 12/04/17 00:00 IMPRESSION: 1. There is evidence of multiple bilateral pulmonary masses consistent with metastatic disease. Bibasilar infiltrate and effusions. Fatty infiltration liver. Status post cholecystectomy. Pathological fracture of right hip and acetabulum. Expansile lytic lesion left ilium at the SI joint. Possible lytic change left ischium. These findings are compatible with changes of metastatic carcinoma of the lung by history Chest X-Ray 12/10/17 00:00 IMPRESSION: Persistent basilar opacities and effusions suspicious for pneumonia. Multiple pulmonary nodules. Pelvis X-Ray 12/11/17 13:18 IMPRESSION: SATISFACTORY POSTOPERATIVE PELVIS. Guidance Fluoroscopy 12/12/17 00:00 IMPRESSION: SUCCESSFUL PLACEMENT OF A 5 FR DUAL LUMEN 34 CM PICC IN THE RIGHT BASILIC VEIN. Interventional Vascular Procedure 12/12/17 00:00 IMPRESSION: SUCCESSFUL PLACEMENT OF A 5 FR DUAL LUMEN 34 CM PICC IN THE RIGHT BASILIC VEIN. PICC Line Insertion 12/12/17 08:23 IMPRESSION: SUCCESSFUL PLACEMENT OF A 5 FR DUAL LUMEN 34 CM PICC IN THE RIGHT BASILIC VEIN. Assessment & Plan - Diagnosis (1) Right acetabular fracture Qualifiers: Encounter type: subsequent encounter Sublocation of acetabulum: medial wall Fracture type: closed Fracture alignment: displaced Is this a current diagnosis for this admission?: Yes Plan: We will now need aggressive physical therapy, work on that today, rehab placement will be needed as well. (2) Lung cancer metastatic to bone Is this a current diagnosis for this admission?: Yes Plan: Further chemotherapy planned but I believe is not imminent, therefore I believe it be important to get her up and moving now that she has had the hip replacement for the pathologic fracture, this would help her quality of life and would also improve pain control. We need to get her to rehab, I believe that would be the best option for the patient, and would improve her comfort with what ever time she has left. However we do not plan on doing any further chemotherapy or radiation therapy. (3) Physical deconditioning Is this a current diagnosis for this admission?: Yes Plan: PT to work with patient today, hopeful rehab placement soon. - Time Time Spent with patient: 35 or more minutes
[2017-12-13] MEDS ORDERED: FENTANYL 100 MCG/HR PATCH.TD72 TD SCH (09:00)
[2017-12-13] MEDS ORDERED: FENTANYL 25 MCG/HR PATCH.TD72 TD SCH (09:00)
[2017-12-13] MEDS: TIOTROPIUM BROMIDE DPI 5 CAP/KIT (18 MCG/CAP) IH SCH (10:36)
[2017-12-13] MEDS: CALCIUM CARBONATE 500 MG TABLET PO SCH (10:36)
[2017-12-13] MEDS: LIDOCAINE 5% (700 MG) TRANSDERMAL ADH..PATCH TP SCH (10:36)
[2017-12-13] MEDS: LORATADINE 10 MG TABLET PO SCH (10:36)
[2017-12-13] MEDS: ASPIRIN 81 MG TABLET, ENT COATED PO SCH (10:36)
[2017-12-13] MEDS: POTASSIUM CHLORIDE 10 MEQ TABLET.SA PO SCH (10:37)
[2017-12-13] MEDS: NORMAL SALINE 10 ML SDV (SCHEDULED) IV SCH ×2 (10:37→22:24)
[2017-12-13 12:59] LABS: ABSOLUTE BASOPHILS # (AUTO) 0.1 10^3/uL (0.0-0.2); ABSOLUTE EOSINOPHILS # (AUTO) 0.2 10^3/uL (0.0-0.6); ABSOLUTE LYMPHOCYTES (AUTO) 1.2 10^3/uL (0.5-4.7); ABSOLUTE MONOCYTES (AUTO) 1.1 10^3/uL (0.1-1.4); ABSOLUTE NEUT (AUTO) 9.1 10^3/uL (1.7-8.2); BASOPHILS % (AUTO) 0.5 % (0-2); EOSINOPHILS % (AUTO) 1.9 % (0-6); HEMATOCRIT 28.5 % (36.0-47.0); HEMOGLOBIN 9.3 g/dL (12.0-15.5); LYMPHOCYTES % (AUTO) 10.1 % (13-45); MEAN CORPUSCULAR HEMOGLOBIN 26.7 pg (27.0-33.4); MEAN CORPUSCULAR HGB CONC 32.7 g/dL (32.0-36.0); MEAN CORPUSCULAR VOLUME 82 fl (80-97); MONOCYTES % (AUTO) 9.6 % (3-13); PLATELET COUNT 253 10^3/uL (150-450); RED CELL DISTRIBUTION WIDTH 21.8 % (11.5-14.0); SEGMENTED NEUTROPHILS % (AUTO) 77.9 % (42-78); TOTAL CELLS COUNTED % (AUTO) 100 %; WHITE BLOOD COUNT 11.7 10^3/uL (4.0-10.5)
[2017-12-13] MEDS ORDERED: FUROSEMIDE INJ/PF 20 MG/2 ML SDV IV ONE (13:00)
[2017-12-13] MEDS: ALBUMIN HUMAN 50 ML IV SCH ×2 (13:05→14:25)
[2017-12-13 13:23] LABS: BLOOD UREA NITROGEN 12 mg/dL (7-20); CALCIUM 7.1 mg/dL (8.4-10.2); CHLORIDE 97 mmol/L (98-107); GLUCOSE 95 mg/dL (75-110); POTASSIUM 4.9 mmol/L (3.6-5.0)
[2017-12-13 13:28] LABS: CARBON DIOXIDE 27 mmol/L (22-30); SODIUM 126.8 mmol/L (137-145)
[2017-12-13 13:33] LABS: ANION GAP 3 (5-19)
--- NOTE | 2017-12-13 17:39 | PDOC PROGRESS REPORT ---
Subjective Progress Note for:: 12/13/17 Subjective:: ANUP OLIVEROS is a 77-year-old female who presented to the emergency department with R acetabular fracture. She is now POD1 acetabular fracture repair. The patient was seen on morning rounds, she was drowsy but awake during conversation. She is oriented, and participatory in care. At the time of my assessment the patient stated that she was in no pain. States she only has pain in the evening after physical therapy Reason For Visit: RIGHT ACETABULAR FRACTURE Physical Exam Vital Signs: Temp Pulse Resp BP Pulse Ox 98.9 F 99 16 102/46 L 97 12/13/17 16:15 12/13/17 16:15 12/13/17 16:15 12/13/17 16:15 12/13/17 16:15 Intake & Output 12/12/17 12/13/17 12/14/17 06:59 06:59 06:59 Intake Total 5005 2180 Output Total 2760 365 Balance 2245 1815 Weight 72.3 kg 79 kg Results Laboratory Results: 12/13/17 12:30 12/13/17 12:30 12/13/17 12/13/17 12/13/17 05:35 12:30 12:30 WBC 10.7 H 11.7 H RBC 3.27 L 3.50 L Hgb 8.8 L 9.3 L Hct 26.6 L 28.5 L MCV 81 82 MCH 26.9 L 26.7 L MCHC 33.0 32.7 RDW 21.1 H 21.8 H Plt Count 255 253 Seg Neutrophils % 77.9 Lymphocytes % 10.1 L Monocytes % 9.6 Eosinophils % 1.9 Basophils % 0.5 Absolute Neutrophils 9.1 H Absolute Lymphocytes 1.2 Absolute Monocytes 1.1 Absolute Eosinophils 0.2 Absolute Basophils 0.1 Sodium 126.8 L Potassium 4.9 Chloride 97 L Carbon Dioxide 27 Anion Gap 3 L BUN 12 Creatinine 0.51 L Est GFR ( Amer) > 60 Est GFR (Non-Af Amer) > 60 Glucose 95 Calcium 7.1 L Phosphorus 3.0 Magnesium 2.1 Impressions: Hip/Pelvis X-Ray 12/01/17 17:53 IMPRESSION: Medial wall right acetabular fracture with protrusion of the femoral head into the bony pelvis Chest CT 12/01/17 19:16 IMPRESSION: ALTHOUGH THERE HAS BEEN INTERVAL IMPROVEMENT OF MEDIASTINAL AND HILAR LYMPHADENOPATHY WELL DOMINANT MASS RIGHT SUPRAHILAR LUNG AND RIGHT UPPER LOBE THERE HAS BEEN INTERVAL DEVELOPMENT OF NEW WILL ENLARGING PULMONARY NODULES/MASSES COMPATIBLE WITH OVERALL PROGRESSION OF METASTATIC LUNG CANCER. NEW BILATERAL LOWER LOBE AIRSPACE DISEASE SUSPICIOUS FOR PNEUMONIA. CORRELATE WITH FEVER/ELEVATED WHITE BLOOD CELL COUNT. Head CT 12/01/17 19:16 IMPRESSION: MILD CHRONIC CHANGES OF ATROPHY AND MICROVASCULAR ISCHEMIA. PARANASAL SINUS DISEASE. NO ACUTE INTRACRANIAL PROCESS. EVIDENCE OF ACUTE STROKE: NO. Abdomen/Pelvis CT 12/04/17 00:00 IMPRESSION: 1. There is evidence of multiple bilateral pulmonary masses consistent with metastatic disease. Bibasilar infiltrate and effusions. Fatty infiltration liver. Status post cholecystectomy. Pathological fracture of right hip and acetabulum. Expansile lytic lesion left ilium at the SI joint. Possible lytic change left ischium. These findings are compatible with changes of metastatic carcinoma of the lung by history Chest X-Ray 12/10/17 00:00 IMPRESSION: Persistent basilar opacities and effusions suspicious for pneumonia. Multiple pulmonary nodules. Pelvis X-Ray 12/11/17 13:18 IMPRESSION: SATISFACTORY POSTOPERATIVE PELVIS. Guidance Fluoroscopy 12/12/17 00:00 IMPRESSION: SUCCESSFUL PLACEMENT OF A 5 FR DUAL LUMEN 34 CM PICC IN THE RIGHT BASILIC VEIN. Interventional Vascular Procedure 12/12/17 00:00 IMPRESSION: SUCCESSFUL PLACEMENT OF A 5 FR DUAL LUMEN 34 CM PICC IN THE RIGHT BASILIC VEIN. PICC Line Insertion 12/12/17 08:23 IMPRESSION: SUCCESSFUL PLACEMENT OF A 5 FR DUAL LUMEN 34 CM PICC IN THE RIGHT BASILIC VEIN. Assessment & Plan - Diagnosis (1) Right acetabular fracture Qualifiers: Encounter type: subsequent encounter Sublocation of acetabulum: medial wall Fracture type: closed Fracture alignment: displaced Is this a current diagnosis for this admission?: Yes Plan: Pathological fracture unchanged from 11/03/2017. The case was discussed with orthopedics, and oncology (Dr. Gomez). CT chest/abd/pelvis shows progression of her disease despite being on chemotherapy and radiation. POD2 acetabular fracture repair done by Dr. Prescott. No ROM in RLE, but adequate flexion and extension of the right foot, +PMS, pain regimen was increased this morning by Dr. Gomez. 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 The plan is to transfer her to an inpatient hospice facility with physical therapy. Appreciate discharge planning for assistance in making arrangements. (3) UTI (urinary tract infection) Qualifiers: Urinary tract infection type: acute cystitis Hematuria presence: without hematuria Qualified Code(s): N30.00 - Acute cystitis without hematuria Is this a current diagnosis for this admission?: Yes Plan: Resolved. Completed full course of ciprofloxacin for E. coli and Klebsiella in urine. Monitor for recurrence of symptoms. (4) Pneumonia Qualifiers: Pneumonia type: due to unspecified organism Laterality: bilateral Lung location: lower lobe of lung Qualified Code(s): J18.9 - Pneumonia, unspecified organism Is this a current diagnosis for this admission?: Yes Plan: Questionable bilateral lower lobe PNA seen on chest CTA. Patient was initially covered with vancomycin and Zosyn, which has since been discontinued. Preop chest x-ray demonstrates persistent bibasilar opacities and effusions suspicion for pneumonia. Low threshold for treatment of healthcare associated pneumonia. Encourage turn, cough, deep breath with incentive spirometry while awake (5) Intractable pain Is this a current diagnosis for this admission?: Yes Plan: Pain regimen was increased by Dr. Gomez, now on scheduled oxycodone as well as OxyContin. Dosage of fentanyl patch was also increased. Patient states her pain is well controlled (6) Edema Is this a current diagnosis for this admission?: Yes Plan: Generalized edema likely due to 3rd spacing from poor nutrition and overall immobility. Creatinine 0.6. The patient was given 25G Albumin IV and Lasix 20mg IV to help mobilize third spaced fluid. Per nursing staff, blood pressure and urine output significantly increased following albumin. Continue to monitor. Additionally, increased protein in PO diet to assist with low total protein and low albumin level - Time Time Spent with patient: 15-24 minutes Medications reviewed and adjusted accordingly: Yes Anticipated discharge: Hospice - Inpatient Certification Based on my medical assessment, after consideration of the patient's comorbidities, presenting symptoms, or acuity I expect that the services needed warrant INPATIENT care.: Yes I certify that my determination is in accordance with my understanding of Medicare's requirements for reasonable and necessary INPATIENT services [42 CFR 412.3e].: Yes Medical Necessity: Risk of Complication if Not Cared For in Hospital - Plan Summary Plan Summary: The plan is to discharge the patient to [facility] within the next 48 hours
[2017-12-13] MEDS: NORMAL SALINE 1000 ML 1,000 ML with POTASSIUM CHLORIDE 20 MEQ, MAGNESIUM SULFATE 8 MEQ,... IV SCH ×5 (18:10)
[2017-12-13] MEDS ORDERED: SODIUM CHLORIDE 1 GM TABLET PO ONE (19:00)
[2017-12-13] MEDS: DIPHENHYDRAMINE HCL 50 MG/ML VIAL IV PRN (19:25)
[2017-12-13] MEDS: LANSOPRAZOLE 15 MG TAB.RAP.DR PO SCH (22:23)
[2017-12-13] MEDS: PHARMACY COMMUNICATION ORDER MC SCH (22:30)
--- NOTE | 2017-12-13 23:33 | Progress Note ---
Provider Note Provider Note: Palliative care follow up visit 12/13/17 11:45 AM Follow up visit with Mrs. wilson who is known to me from home palliative care visits prior to this admission. Mrs. Wilson is alert and awake at time of visit. She reports less pain after surgical intervention, but states she has not tried to stand. She was able to ist on side of bed according to her report. She is still very weak and frail. Denies pain at this time, but states she still does have pain frequently. Mrs. Wilson is concerned about her discharge plans. She said she hopes to transfer to [facility] for residential stay until she can transfer to [place]. She states she is aware that she will not get rehab physical therapy in this setting, but said she is not sure she can participate with physical therapy at this point. She says she is more interested in remaining comfortable than pushing for rehab. She has spoken with Chantelle simms, hospice liason, who is trying to secure residential bed for this patient at the [facility] in [place]. If bed is not available at that site, possibly could get bed at [facility] in [place] or [facility]. Her son lives in [place], so that would be the best site. Mrs Wilson says she is very grateful for the surgery stating she has been in less pain. She is realistic about her disease. She is worried about placement and care of her handicapped daughter,Maged. Physically, Mrs. Wilson looks comfortable, but is not moving much in her bed, She has regular heart sounds, clear breath sounds and no dyspnea. Color pale, skin warm and dry. No edema lower extremities. Speech is clear and she is well oriented. Labs reviewed, Albumin level continues to be very low. Will follow for support. Appreciate work of medical planner and hospice liason. Will be available for daughter for support.
[2017-12-14] MEDS: OXYCODONE HCL IR 5 MG TABLET PO SCH ×5 (00:30→14:04)
[2017-12-14] MEDS: DIPHENHYDRAMINE HCL 50 MG/ML VIAL IV PRN (01:30)
[2017-12-14] MEDS ORDERED: FENTANYL CITRATE INJ/PF 50 MCG/1 ML 50 ML SDV IV PRN (03:51)
[2017-12-14] MEDS ORDERED: FENTANYL CITRATE INJ/PF 100 MCG/2 ML AMPUL IV PRN ×2 (04:30→13:25)
[2017-12-14] MEDS: LANSOPRAZOLE 30 MG TAB.RAP.DR PO SCH (05:18)
[2017-12-14] MEDS: HEPARIN SOD (PORCINE) 5,000 UNIT/ML 1 ML SYRINGE SUBCUT SCH ×2 (05:33→14:04)
[2017-12-14 05:58] LABS: HEMATOCRIT 26.6 % (36.0-47.0); HEMOGLOBIN 8.7 g/dL (12.0-15.5); MEAN CORPUSCULAR HEMOGLOBIN 26.7 pg (27.0-33.4); MEAN CORPUSCULAR HGB CONC 32.6 g/dL (32.0-36.0); MEAN CORPUSCULAR VOLUME 82 fl (80-97); PLATELET COUNT 248 10^3/uL (150-450); RED BLOOD COUNT 3.24 10^6/uL (3.72-5.28); RED CELL DISTRIBUTION WIDTH 21.7 % (11.5-14.0); WHITE BLOOD COUNT 11.6 10^3/uL (4.0-10.5)
--- NOTE | 2017-12-14 07:01 | PDOC PROGRESS REPORT ---
Subjective Progress Note for:: 12/14/17 Reason For Visit: RIGHT ACETABULAR FRACTURE Patient with increasing pain in her right hemipelvis radiating into her back. This is a new pain that she has not experienced before. Physical Exam Vital Signs: Temp Pulse Resp BP Pulse Ox 36.7 C 100 18 90/61 L 97 12/14/17 03:15 12/14/17 03:15 12/14/17 03:15 12/14/17 03:15 12/14/17 03:15 Intake & Output 12/12/17 12/13/17 12/14/17 06:59 06:59 06:59 Intake Total 5005 2180 782 Output Total 2760 365 1500 Balance 2245 1815 -718 Weight 72.3 kg 79 kg 79.4 kg Physical Exam: Elderly white female with alopecia lying in bed who is alert oriented and in some discomfort. General appearance: PRESENT: mild distress Respiratory exam: PRESENT: unlabored Cardiovascular exam: PRESENT: RRR Pulses: PRESENT: +1 pedal pulses bilateral Vascular exam: PRESENT: normal capillary refill GI/Abdominal exam: PRESENT: soft Rectal exam: PRESENT: deferred Extremities exam: PRESENT: other - Right hip dressing change. Wound is well approximated. Stefani intact. There is a surrounding erythema from a topical irritation as opposed to an underlying inflammatory condition. There is a fair amount of clear serous drainage. Leg lengths are equal. Distal neurovascular examination is intact. Neurological exam: PRESENT: alert, awake, oriented to person, oriented to place , oriented to time, oriented to situation. ABSENT: motor sensory deficit Psychiatric exam: PRESENT: appropriate affect, normal mood. ABSENT: homicidal ideation, suicidal ideation Skin exam: PRESENT: dry, erythema, intact, mottled, warm. ABSENT: cyanosis, rash Results Laboratory Results: 12/14/17 05:25 12/13/17 12:30 12/13/17 12/13/17 12/14/17 12:30 12:30 05:25 WBC 11.7 H 11.6 H RBC 3.50 L 3.24 L Hgb 9.3 L 8.7 L Hct 28.5 L 26.6 L MCV 82 82 MCH 26.7 L 26.7 L MCHC 32.7 32.6 RDW 21.8 H 21.7 H Plt Count 253 248 Seg Neutrophils % 77.9 Lymphocytes % 10.1 L Monocytes % 9.6 Eosinophils % 1.9 Basophils % 0.5 Absolute Neutrophils 9.1 H Absolute Lymphocytes 1.2 Absolute Monocytes 1.1 Absolute Eosinophils 0.2 Absolute Basophils 0.1 Sodium 126.8 L Potassium 4.9 Chloride 97 L Carbon Dioxide 27 Anion Gap 3 L BUN 12 Creatinine 0.51 L Est GFR ( Amer) > 60 Est GFR (Non-Af Amer) > 60 Glucose 95 Calcium 7.1 L Phosphorus 3.0 Magnesium 2.1 Impressions: Hip/Pelvis X-Ray 12/01/17 17:53 IMPRESSION: Medial wall right acetabular fracture with protrusion of the femoral head into the bony pelvis Chest CT 12/01/17 19:16 IMPRESSION: ALTHOUGH THERE HAS BEEN INTERVAL IMPROVEMENT OF MEDIASTINAL AND HILAR LYMPHADENOPATHY WELL DOMINANT MASS RIGHT SUPRAHILAR LUNG AND RIGHT UPPER LOBE THERE HAS BEEN INTERVAL DEVELOPMENT OF NEW WILL ENLARGING PULMONARY NODULES/MASSES COMPATIBLE WITH OVERALL PROGRESSION OF METASTATIC LUNG CANCER. NEW BILATERAL LOWER LOBE AIRSPACE DISEASE SUSPICIOUS FOR PNEUMONIA. CORRELATE WITH FEVER/ELEVATED WHITE BLOOD CELL COUNT. Head CT 12/01/17 19:16 IMPRESSION: MILD CHRONIC CHANGES OF ATROPHY AND MICROVASCULAR ISCHEMIA. PARANASAL SINUS DISEASE. NO ACUTE INTRACRANIAL PROCESS. EVIDENCE OF ACUTE STROKE: NO. Abdomen/Pelvis CT 12/04/17 00:00 IMPRESSION: 1. There is evidence of multiple bilateral pulmonary masses consistent with metastatic disease. Bibasilar infiltrate and effusions. Fatty infiltration liver. Status post cholecystectomy. Pathological fracture of right hip and acetabulum. Expansile lytic lesion left ilium at the SI joint. Possible lytic change left ischium. These findings are compatible with changes of metastatic carcinoma of the lung by history Chest X-Ray 12/10/17 00:00 IMPRESSION: Persistent basilar opacities and effusions suspicious for pneumonia. Multiple pulmonary nodules. Pelvis X-Ray 12/11/17 13:18 IMPRESSION: SATISFACTORY POSTOPERATIVE PELVIS. Guidance Fluoroscopy 12/12/17 00:00 IMPRESSION: SUCCESSFUL PLACEMENT OF A 5 FR DUAL LUMEN 34 CM PICC IN THE RIGHT BASILIC VEIN. Interventional Vascular Procedure 12/12/17 00:00 IMPRESSION: SUCCESSFUL PLACEMENT OF A 5 FR DUAL LUMEN 34 CM PICC IN THE RIGHT BASILIC VEIN. PICC Line Insertion 12/12/17 08:23 IMPRESSION: SUCCESSFUL PLACEMENT OF A 5 FR DUAL LUMEN 34 CM PICC IN THE RIGHT BASILIC VEIN. Status: Imported from PACS Assessment & Plan - Diagnosis (1) Right acetabular fracture Qualifiers: Encounter type: subsequent encounter Sublocation of acetabulum: medial wall Fracture type: closed Fracture alignment: displaced Is this a current diagnosis for this admission?: Yes Plan: 77-year-old white female with metastatic lung carcinoma right pathologic acetabular fracture and now postop day 3 following reconstruction. Patient continues to have considerable lower extremity edema and I think this is contributing to the serious weepage from the wound. New onset pain is of uncertain etiology. Tentative plan will be to continue to observe it for short period of time and if it does not resolve spontaneously obtain repeat radiographs.
--- NOTE | 2017-12-14 08:08 | PDOC PROGRESS REPORT ---
Subjective Progress Note for:: 12/14/17 Subjective:: Still w/ a lot of pain, PT did get her up on side of bed but still w/ severe pain, medications adjusted yesterday Reason For Visit: RIGHT ACETABULAR FRACTURE Physical Exam Vital Signs: Temp Pulse Resp BP Pulse Ox 98.1 F 100 18 90/61 L 97 12/14/17 03:15 12/14/17 03:15 12/14/17 03:15 12/14/17 03:15 12/14/17 03:15 Intake & Output 12/13/17 12/14/17 12/15/17 06:59 06:59 06:59 Intake Total 2180 782 Output Total 365 1500 Balance 1815 -718 Weight 79 kg 79.4 kg General appearance: PRESENT: no acute distress, well-developed, well-nourished Head exam: PRESENT: atraumatic, normocephalic Eye exam: PRESENT: conjunctiva pink, EOMI, PERRLA. ABSENT: scleral icterus Ear exam: PRESENT: normal external ear exam Mouth exam: PRESENT: moist, tongue midline Neck exam: ABSENT: carotid bruit, JVD, lymphadenopathy, thyromegaly Respiratory exam: PRESENT: clear to auscultation mehdi. ABSENT: rales, rhonchi, wheezes Cardiovascular exam: PRESENT: RRR. ABSENT: diastolic murmur, rubs, systolic murmur Pulses: PRESENT: normal dorsalis pedis pul Vascular exam: PRESENT: normal capillary refill GI/Abdominal exam: PRESENT: normal bowel sounds, soft. ABSENT: distended, guarding, mass, organolmegaly, rebound, tenderness Rectal exam: PRESENT: deferred Extremities exam: PRESENT: full ROM. ABSENT: calf tenderness, clubbing, pedal edema Neurological exam: PRESENT: alert, awake, oriented to person, oriented to place , oriented to time, oriented to situation, CN II-XII grossly intact. ABSENT: motor sensory deficit Psychiatric exam: PRESENT: appropriate affect, normal mood. ABSENT: homicidal ideation, suicidal ideation Skin exam: PRESENT: dry, intact, warm. ABSENT: cyanosis, rash Results Laboratory Results: 12/14/17 05:25 12/13/17 12:30 12/13/17 12/13/17 12/14/17 12:30 12:30 05:25 WBC 11.7 H 11.6 H RBC 3.50 L 3.24 L Hgb 9.3 L 8.7 L Hct 28.5 L 26.6 L MCV 82 82 MCH 26.7 L 26.7 L MCHC 32.7 32.6 RDW 21.8 H 21.7 H Plt Count 253 248 Seg Neutrophils % 77.9 Lymphocytes % 10.1 L Monocytes % 9.6 Eosinophils % 1.9 Basophils % 0.5 Absolute Neutrophils 9.1 H Absolute Lymphocytes 1.2 Absolute Monocytes 1.1 Absolute Eosinophils 0.2 Absolute Basophils 0.1 Sodium 126.8 L Potassium 4.9 Chloride 97 L Carbon Dioxide 27 Anion Gap 3 L BUN 12 Creatinine 0.51 L Est GFR ( Amer) > 60 Est GFR (Non-Af Amer) > 60 Glucose 95 Calcium 7.1 L Phosphorus 3.0 Magnesium 2.1 Impressions: Hip/Pelvis X-Ray 12/01/17 17:53 IMPRESSION: Medial wall right acetabular fracture with protrusion of the femoral head into the bony pelvis Chest CT 12/01/17 19:16 IMPRESSION: ALTHOUGH THERE HAS BEEN INTERVAL IMPROVEMENT OF MEDIASTINAL AND HILAR LYMPHADENOPATHY WELL DOMINANT MASS RIGHT SUPRAHILAR LUNG AND RIGHT UPPER LOBE THERE HAS BEEN INTERVAL DEVELOPMENT OF NEW WILL ENLARGING PULMONARY NODULES/MASSES COMPATIBLE WITH OVERALL PROGRESSION OF METASTATIC LUNG CANCER. NEW BILATERAL LOWER LOBE AIRSPACE DISEASE SUSPICIOUS FOR PNEUMONIA. CORRELATE WITH FEVER/ELEVATED WHITE BLOOD CELL COUNT. Head CT 12/01/17 19:16 IMPRESSION: MILD CHRONIC CHANGES OF ATROPHY AND MICROVASCULAR ISCHEMIA. PARANASAL SINUS DISEASE. NO ACUTE INTRACRANIAL PROCESS. EVIDENCE OF ACUTE STROKE: NO. Abdomen/Pelvis CT 12/04/17 00:00 IMPRESSION: 1. There is evidence of multiple bilateral pulmonary masses consistent with metastatic disease. Bibasilar infiltrate and effusions. Fatty infiltration liver. Status post cholecystectomy. Pathological fracture of right hip and acetabulum. Expansile lytic lesion left ilium at the SI joint. Possible lytic change left ischium. These findings are compatible with changes of metastatic carcinoma of the lung by history Chest X-Ray 12/10/17 00:00 IMPRESSION: Persistent basilar opacities and effusions suspicious for pneumonia. Multiple pulmonary nodules. Pelvis X-Ray 12/11/17 13:18 IMPRESSION: SATISFACTORY POSTOPERATIVE PELVIS. Guidance Fluoroscopy 12/12/17 00:00 IMPRESSION: SUCCESSFUL PLACEMENT OF A 5 FR DUAL LUMEN 34 CM PICC IN THE RIGHT BASILIC VEIN. Interventional Vascular Procedure 12/12/17 00:00 IMPRESSION: SUCCESSFUL PLACEMENT OF A 5 FR DUAL LUMEN 34 CM PICC IN THE RIGHT BASILIC VEIN. PICC Line Insertion 12/12/17 08:23 IMPRESSION: SUCCESSFUL PLACEMENT OF A 5 FR DUAL LUMEN 34 CM PICC IN THE RIGHT BASILIC VEIN. Assessment & Plan - Diagnosis (1) Right acetabular fracture Qualifiers: Encounter type: subsequent encounter Sublocation of acetabulum: medial wall Fracture type: closed Fracture alignment: displaced Is this a current diagnosis for this admission?: Yes Plan: Had long discussion w/ family, hospice and d/c planning, pt and family would like her to d/c to [place], they do not want to go to rehab/SNF. So plan is to go to inpt hospice setting. (2) Lung cancer metastatic to bone Is this a current diagnosis for this admission?: Yes Plan: No further chemo/rx planned, hospice inpt (3) Physical deconditioning Is this a current diagnosis for this admission?: Yes Plan: No further aggressive PT planned, pt will only be kept comfortable - Time Time Spent with patient: 35 or more minutes Anticipated discharge: Hospice Within: within 24 hours
[2017-12-14] MEDS: POTASSIUM CHLORIDE 10 MEQ TABLET.SA PO SCH (09:36)
[2017-12-14] MEDS: LORATADINE 10 MG TABLET PO SCH (10:00)
[2017-12-14] MEDS: ASPIRIN 81 MG TABLET, ENT COATED PO SCH (10:00)
[2017-12-14] MEDS: CALCIUM CARBONATE 500 MG TABLET PO SCH (10:00)
[2017-12-14] MEDS ORDERED: FENTANYL 100 MCG/HR PATCH.TD72 TOP SCH (10:00)
[2017-12-14] MEDS: NORMAL SALINE 10 ML SDV (SCHEDULED) IV SCH (10:01)
[2017-12-14] MEDS: TIOTROPIUM BROMIDE DPI 5 CAP/KIT (18 MCG/CAP) IH SCH (10:01)
[2017-12-14] MEDS: LIDOCAINE 5% (700 MG) TRANSDERMAL ADH..PATCH TP SCH (10:01)
--- NOTE | 2017-12-14 13:36 | PDOC DISCHARGE SUMMARY ---
General - Admit/Disc Date/PCP Admission Date/Primary Care Provider: 12/01/17 22:38 RADHA LYMAN [facility] Discharge Date: 12/14/17 - Discharge Diagnosis (1) Right acetabular fracture Is this a current diagnosis for this admission?: Yes Summary: Pathological fracture of the right acetabulum, originally seen on film 10/2015. Originally, orthopedics did not want to perform a right hip arthroplasty because they believed she was not a good candidate for surgery given her fragile state. While the patient was awaiting transfer to a hospice facility, her pain could not be controlled while she was inpatient. She was often found crying in pain, expressing her frustration with the lack of pain control. Oncology and orthopedic surgery agreed that a right hip arthroplasty could be performed to help alleviate the patient's pain, as long as the family was aware of the inherent risks associated with operating on an elderly woman with stage IV cancer. The family and the patient both agreed that they wanted to pursue the surgery. A right hip arthroplasty was performed 12/11 without complication. Postoperatively the patient's pain was markedly improved. She still requires [id number] narcotic analgesia, but she states that her pain has significantly decreased since having the surgery. Physical therapy and occupational therapy have been working with the patient to help improve her right lower extremity range of motion. (2) Lung cancer metastatic to bone Is this a current diagnosis for this admission?: Yes Summary: Per oncology, there are no available chemoradiation options for the patient. Dr. Gomez recommended hospice given the patient's advanced cancer diagnosis and her fragile health status. The family agrees that this is the best option. The patient is willing to be transferred to a hospice facility following this hospitalization. (3) UTI (urinary tract infection) Is this a current diagnosis for this admission?: Yes Summary: Patient had E. coli growing in her urine culture. She completed a course of ciprofloxacin. A Hernandez was placed for patient comfort and will remain in place following discharge. This is a palliative measure to decrease the patient's pain from having to roll on her side to use a bedpan. The patient denies any symptoms of dysuria or lower abdominal pain. (4) Pneumonia Is this a current diagnosis for this admission?: Yes Summary: Concern for pneumonia on CT, patient was given a course of vancomycin and Zosyn. Preop x-ray showed bilateral pleural effusions. The patient denies symptoms of orthopnea, dyspnea, cough. There was no evidence of recurring ( hospital-acquired) pneumonia. (5) Intractable pain Is this a current diagnosis for this admission?: Yes Summary: The patient initially complained of intractable pain related to her right hip fracture. Postoperatively her pain was markedly improved but she still requires [id number] narcotic analgesia. She is currently taking oxycodone , fentanyl patch, and fentanyl IV PRN. The patient states that her pain is now well controlled, she only complains of mild pain to her right hip following physical therapy. (6) Edema Is this a current diagnosis for this admission?: Yes Summary: +4 pitting edema in bilateral lower extremities secondary to third spacing as a result of hypoalbuminemia, low total protein related to poor nutritional intake. The patient was treated with albumin and Lasix which rarely alleviated the lower extremity pitting edema, but it would return the following day. The patient was started on a regular diet and encouraged high protein intake however her overall nutritional status still remains poor. - Additional Information Resuscitation Status: Do Not Intubate Home Medications: Dronabinol [Marinol] 5 mg PO DAILY@08,12 12/02/17 Fentanyl [Duragesic 100 Mcg/Hr Transdermal Patch] 100 mcg TOP Q3D 12/02/17 Hydromorphone HCl [Dilaudid] 4 mg PO Q6HP PRN 12/02/17 Omeprazole 20 mg PO QHS 12/02/17 Ondansetron HCl [Zofran 8 mg Tablet] 8 mg PO Q8HP PRN 12/02/17 Potassium Chloride [Klor-Con M20] 20 meq PO DAILY 12/02/17 Prochlorperazine Maleate [Compazine 10 mg Tablet] 10 mg PO Q4HP PRN 12/02/17 Tiotropium [place] [Spiriva Handihaler 18 mcg/dose (30 Dose)] 1 cap IH DAILY History of Present Illness Patient complains of: Right hip pain History of Present Illness: ANUP OLIVEROS is a 77 year old female with a history of lung cancer with metastasis to the bone. The patient presented to the hospital 12/01/2017 for right hip pain. CT pelvis showed a right comminuted impacted fracture of the right acetabulum with comminution of the anterior and posterior column. Medial migration of the femoral head. Upon initial presentation to the hospital, the orthopedic surgeon did not feel that the patient was a good candidate for a right hip arthroplasty due to her fragile status. The original plan was to manage the patient's pain and send her to a hospice facility. Days into the admission, the patient still had not experienced pain relief. She was often found crying in her room, stating that she was so frustrated because her pain was not under control. Oncology and orthopedic surgery agreed to perform the right hip arthroplasty in an attempt to alleviate her intractable pain. Family was well aware of the risks associated with the procedure given the patient's fragile health status. The procedure was done without complication and postoperatively the patient's pain had significantly improved. She is still requiring [id number] narcotic analgesia to relieve her right hip pain, but the patient is much more comfortable and will be able to tolerate a transfer to hospice. Hospital Course Hospital Course: As above Physical Exam Vital Signs: Temp Pulse Resp BP Pulse Ox 97.7 F 108 H 24 H 107/49 L 97 12/14/17 07:50 12/14/17 07:50 12/14/17 07:50 12/14/17 07:50 12/14/17 07:50 Intake & Output 12/13/17 12/14/17 12/15/17 06:59 06:59 06:59 Intake Total 2180 782 Output Total 365 1500 Balance 1815 -718 Weight 79 kg 79.4 kg General appearance: PRESENT: no acute distress, thin - Cachectic, other Head exam: PRESENT: atraumatic Eye exam: PRESENT: conjunctiva pink Mouth exam: PRESENT: dry mucosa Teeth exam: PRESENT: poor dentation Respiratory exam: PRESENT: clear to auscultation mehdi Cardiovascular exam: PRESENT: +S1, +S2 Pulses: PRESENT: normal radial pulses, +1 pedal pulses bilateral GI/Abdominal exam: PRESENT: normal bowel sounds, soft Rectal exam: PRESENT: deferred Extremities exam: PRESENT: other - +4 pitting edema in bilateral lower extremities Musculoskeletal exam: PRESENT: deformity, other - The patient is currently bedbound Neurological exam: PRESENT: alert, altered, awake, oriented to person, oriented to place, oriented to time, oriented to situation Psychiatric exam: PRESENT: appropriate affect Results Laboratory Results: 12/14/17 05:25 12/13/17 12:30 12/13/17 12/13/17 12/14/17 12:30 12:30 05:25 WBC 11.7 H 11.6 H RBC 3.50 L 3.24 L Hgb 9.3 L 8.7 L Hct 28.5 L 26.6 L MCV 82 82 MCH 26.7 L 26.7 L MCHC 32.7 32.6 RDW 21.8 H 21.7 H Plt Count 253 248 Seg Neutrophils % 77.9 Lymphocytes % 10.1 L Monocytes % 9.6 Eosinophils % 1.9 Basophils % 0.5 Absolute Neutrophils 9.1 H Absolute Lymphocytes 1.2 Absolute Monocytes 1.1 Absolute Eosinophils 0.2 Absolute Basophils 0.1 Sodium 126.8 L Potassium 4.9 Chloride 97 L Carbon Dioxide 27 Anion Gap 3 L BUN 12 Creatinine 0.51 L Est GFR ( Amer) > 60 Est GFR (Non-Af Amer) > 60 Glucose 95 Calcium 7.1 L Phosphorus 3.0 Magnesium 2.1 Impressions: Hip/Pelvis X-Ray 12/01/17 17:53 IMPRESSION: Medial wall right acetabular fracture with protrusion of the femoral head into the bony pelvis Chest CT 12/01/17 19:16 IMPRESSION: ALTHOUGH THERE HAS BEEN INTERVAL IMPROVEMENT OF MEDIASTINAL AND HILAR LYMPHADENOPATHY WELL DOMINANT MASS RIGHT SUPRAHILAR LUNG AND RIGHT UPPER LOBE THERE HAS BEEN INTERVAL DEVELOPMENT OF NEW WILL ENLARGING PULMONARY NODULES/MASSES COMPATIBLE WITH OVERALL PROGRESSION OF METASTATIC LUNG CANCER. NEW BILATERAL LOWER LOBE AIRSPACE DISEASE SUSPICIOUS FOR PNEUMONIA. CORRELATE WITH FEVER/ELEVATED WHITE BLOOD CELL COUNT. Head CT 12/01/17 19:16 IMPRESSION: MILD CHRONIC CHANGES OF ATROPHY AND MICROVASCULAR ISCHEMIA. PARANASAL SINUS DISEASE. NO ACUTE INTRACRANIAL PROCESS. EVIDENCE OF ACUTE STROKE: NO. Abdomen/Pelvis CT 12/04/17 00:00 IMPRESSION: 1. There is evidence of multiple bilateral pulmonary masses consistent with metastatic disease. Bibasilar infiltrate and effusions. Fatty infiltration liver. Status post cholecystectomy. Pathological fracture of right hip and acetabulum. Expansile lytic lesion left ilium at the SI joint. Possible lytic change left ischium. These findings are compatible with changes of metastatic carcinoma of the lung by history Chest X-Ray 12/10/17 00:00 IMPRESSION: Persistent basilar opacities and effusions suspicious for pneumonia. Multiple pulmonary nodules. Pelvis X-Ray 12/11/17 13:18 IMPRESSION: SATISFACTORY POSTOPERATIVE PELVIS. Guidance Fluoroscopy 12/12/17 00:00 IMPRESSION: SUCCESSFUL PLACEMENT OF A 5 FR DUAL LUMEN 34 CM PICC IN THE RIGHT BASILIC VEIN. Interventional Vascular Procedure 12/12/17 00:00 IMPRESSION: SUCCESSFUL PLACEMENT OF A 5 FR DUAL LUMEN 34 CM PICC IN THE RIGHT BASILIC VEIN. PICC Line Insertion 12/12/17 08:23 IMPRESSION: SUCCESSFUL PLACEMENT OF A 5 FR DUAL LUMEN 34 CM PICC IN THE RIGHT BASILIC VEIN. Status: Imported from PACS Qualifiers - * PATEINT BEING DISCHARGED WITH ANY OF THE FOLLOWING DIAGNOSIS?: No Plan Discharge Plan: Now that the patient's pain is under control, the plan is to discharge her from [facility] and transfer her to a hospice facility. Time Spent: Greater than 30 Minutes
[2017-12-14 14:27] VITALS: BP 86/42
== END 2017-12-14 15:30 | disposition hospice, inpatient (51) | DRG 469 ==
LOC: ER 17:28 → EH 22:38 → 4W 12-02 00:40
PROVIDERS: ADMIT Internal Medicine Geriatric Medicine; ATTEND Internal Medicine Geriatric Medicine
PROC: 0QS404Z Reposition Right Acetabulum with Internal Fixation Device, Open Approach (ICD-10-PCS; 2017-12-11)
PROC: 0SR9029 Replacement of Right Hip Joint with Metal on Polyethylene Synthetic Substitute, Cemented, Open Approach (ICD-10-PCS; principal; 2017-12-11 11:00)
PROC: 02HV33Z Insertion of Infusion Device into Superior Vena Cava, Percutaneous Approach (ICD-10-PCS; 2017-12-12)
PROC: B518ZZA Fluoroscopy of Superior Vena Cava, Guidance (ICD-10-PCS; 2017-12-12)
PROC: B548ZZA Ultrasonography of Superior Vena Cava, Guidance (ICD-10-PCS; 2017-12-12)
DX: M84.559A Pathological fracture in neoplastic disease, hip, unspecified, initial encounter for fracture (principal); J18.9 Pneumonia, unspecified organism; C34.90 Malignant neoplasm of unspecified part of unspecified bronchus or lung; C79.51 Secondary malignant neoplasm of bone; N30.00 Acute cystitis without hematuria; E87.1 Hypo-osmolality and hyponatremia; Z66 Do not resuscitate; M25.551 Pain in right hip; L89.152 Pressure ulcer of sacral region, stage 2; E87.6 Hypokalemia; E83.51 Hypocalcemia; J44.9 Chronic obstructive pulmonary disease, unspecified; R60.9 Edema, unspecified; B96.20 Unspecified Escherichia coli [E. coli] as the cause of diseases classified elsewhere; B96.1 Klebsiella pneumoniae [K. pneumoniae] as the cause of diseases classified elsewhere; Z60.2 Problems related to living alone; X58.XXXA Exposure to other specified factors, initial encounter; Y93.9 Activity, unspecified; Y92.003 Bedroom of unspecified non-institutional (private) residence as the place of occurrence of the external cause; Z79.51 Long term (current) use of inhaled steroids; Z79.899 Other long term (current) drug therapy
CPT/HCPCS: 01214; 36415; 36569; 51702; 70450; 71045; 71260; 72170; 74176; 74177; 76937; 77001; 80048; 80202; 81001; 82040; 82565; 83735; 84100; 85025; 85027; 85610; 85730; 86850; 86900; 86901; 87040; 87086; 87088; 87186; 88307; 88311; 93005; 93010; 94799; 96361; 96365; 96375; 96376; 99285; A9270-GY; C9290; G8978-GP; G8979-GP; G8987-GO; G8988-GO; J0610; J0696; J1170; J1200; J1642; J1644; J1885; J1940; J2250; J2370; J2405; J2543; J2550; J2704; J3010; J3370; J3411; J3475; J3480; J3490; J7030; J7060; J7120; P9047